=== PATIENT | male | born 1955 | race Caucasian/White ===

== ENCOUNTER 2017-11-01 08:57 | Day surgery (SDC) | payer OTHER ==
[~2017-11-01] VITALS: Ht 175.3 cm; Wt 73.0 kg
[2017-11-01] VITALS (11 sets, daily range): BP systolic 128–180; BP diastolic 66–84
[~2017-11-01 08:57] MED LIST: ASPI325T32 PO; ATOR40TA PO; HYDR25TA4 PO; INSU100I14 SQ; INSU100V5 SQ; NAPR-1071 PO; NF-LAMO200 PO; POLY119P5 PO; QUIN20TA PO; TRAM50TA2 PO
--- OUTSIDE RECORDS SUMMARY | 2017-11-01 09:00 | XMS REPORT | Clinical Summary ---
Author Author [facility] Organization [facility] Address Unknown Phone Unavailable Care Team Providers Care Development Coach Name Role Phone Mihai Grossman MD Unavailable Source Comments Some departments are not documenting in the electronic medical record. If you do not see the information that you expected, contact Release of Information in the Health Information Management department at [phone] for further assistance in locating additional records.[facility] Allergies Not on File Current Medications Not on file Active Problems Not on file Social History Tobacco Use Types Packs/Day Years Used Date Never Assessed Sex Assigned at Date Recorded Not on file Last Filed Vital Signs Not on file Plan of Treatment Health Maintenance Due Date Last Done Comments HEPATITIS C SCREENING 1955 PHYSICAL (COMPREHENSIVE) 1962 EXAM PERTUSSIS VACCINE 1966 HIV SCREENING 1970 TETANUS VACCINE 01/02/1972 COLORECTAL CANCER 2005 SCREENING SHINGLES VACCINE 2015 INFLUENZA VACCINE 02/27/2018 Results Not on filefrom Last 3 Months
--- OUTSIDE RECORDS SUMMARY | 2017-11-01 09:01 | XMS REPORT ---
Author Author NA MORALES Organization [facility] Address [address] [place] [address] Care Team Providers Care Asic Engineer Name Role Phone NA MORALES Unavailable PROBLEMS Type Condition ICD9-CM Code TWO29-WB Code Onset Dates Condition Status SNOMED Code Problem Seizure disorder G40.909 Active 181455184 Problem Depressive disorder, not elsewhere classified F32.9 Active 08589886 Problem History of epilepsy Z86.69 Active 530354737 Problem Memory loss of unknown cause R41.3 Active 00016096 Problem Essential hypertension I10 Active 26920500 Problem Type 1 diabetes mellitus without complications E10.9 Active 798424758 Problem Hypercholesterolemia E78.00 Active 65811251 Problem Acquired hypothyroidism E03.9 Active 240955517 ALLERGIES Unknown Allergies SOCIAL HISTORY No smoking Hx information available PLAN OF CARE VITAL SIGNS MEDICATIONS Medication Instructions Dosage Frequency Start Date End Date Duration Status NovoLog 100 UNIT/ML as directed per pump- 2 vials monthly Jul, Active RESULTS No Results PROCEDURES No Known procedures IMMUNIZATIONS No Known Immunizations
--- OUTSIDE RECORDS SUMMARY | 2017-11-01 09:01 | XMS REPORT ---
Author Author KATHERINE HILTON [facility] eClinicalWorks Address Unknown Phone Unavailable Care Team Providers Care Tinning Machine Set Up Operator Name Role Phone KATHEIRNE HILTON CP Unavailable Allergies No Known Allergies Problems Problem Type Condition Code Onset Dates Condition Status Problem Spasm of muscle 728.85 Active Problem Carpal tunnel syndrome 354.0 Active Problem Corns and callosities 700 Active Problem Pain in soft tissues of limb 729.5 Active Problem Lumbar sprain and strain 847.2 Active Problem Diabetes type 1, controlled E10.9 Active Problem Type I diabetes mellitus 250.01 Active Problem Depressive disorder, not elsewhere classified F32.9 Active Problem Unspecified hereditary and idiopathic peripheral neuropathy 356.9 Active Problem Unspecified musculoskeletal disorders and symptoms referable to neck 723.9 Active Problem Disturbance of skin sensation 782.0 Active Problem Dermatophytosis of nail 110.1 Active Medications No Known Medications Results No Known Results Summary Purpose eClinicalWorks Submission
--- OUTSIDE RECORDS SUMMARY | 2017-11-01 09:01 | XMS REPORT ---
Author Author NA MORALES Organization [facility] Address [address] [place] [address] Care Team Providers Care Corrections Lieutenant Name Role Phone MORALES NA Unavailable PROBLEMS Type Condition ICD9-CM Code [id number] Code Onset Dates Condition Status SNOMED Code Problem Seizure disorder G40.909 Active 581580065 Problem Depressive disorder, not elsewhere classified F32.9 Active 08531153 Problem History of epilepsy Z86.69 Active 155135058 Problem Memory loss of unknown cause R41.3 Active 15873905 Problem Essential hypertension I10 Active 06845441 Problem Type 1 diabetes mellitus without complications E10.9 Active 639162221 Problem Hypercholesterolemia E78.00 Active 05561986 Problem Acquired hypothyroidism E03.9 Active 096645814 ALLERGIES No Known Allergies SOCIAL HISTORY Never Assessed PLAN OF CARE Activity Details Follow Up 3 Months Reason: VITAL SIGNS Height 68 in 2016-08-20 Weight 168.4 lbs 2016-08-20 Temperature 98.5 degrees Fahrenheit 2016-08-20 Heart Rate 72 bpm 2016-08-20 Respiratory Rate 18 2016-08-20 BMI 25.60 kg/m2 2016-08-20 Blood pressure systolic 146 mmHg 2016-08-20 Blood pressure diastolic 70 mmHg 2016-08-20 MEDICATIONS Medication Instructions Dosage Frequency Start Date End Date Duration Status Levothyroxine Sodium 50 MCG Orally Once a day 1 tablet on an empty stomach in the morning 24h Jun, Active Lamotrigine 200 MG TAKE ONE TABLET BY MOUTH ONCE DAILY IN THE MORNING AND ONE AND ONE-HALF TABS IN THE EVENING Active Quinapril HCl 20 MG TAKE ONE TABLET BY MOUTH DAILY Active NovoLog 100 UNIT/ML as directed per pump- 2 vials monthly Jul, Active Hydrochlorothiazide 25 MG TAKE ONE TABLET BY MOUTH DAILY Active Rico Contour Test Test Strips In Vitro 8-10 times per day as directed May, Active Atorvastatin Calcium 40 MG TAKE ONE TABLET BY MOUTH ONCE DAILY Active RESULTS No Results PROCEDURES No Known procedures IMMUNIZATIONS No Known Immunizations MEDICAL (GENERAL) HISTORY Type Description Date Medical History diabetes mellitus Medical History epilepsy Medical History hypertension Medical History hypothyroid Medical History hyperlipidemia Surgical History disc surgery 2014 Surgical History disc surgery low back 1981 Surgical History right foot toe surgery 1982 Surgical History double hernia 2001 Hospitalization History surgeries
--- OUTSIDE RECORDS SUMMARY | 2017-11-01 09:01 | XMS REPORT ---
Author Author NA MORALES Organization [facility] Address [address] [place] [address] Care Team Providers Care Adult Education Professional Name Role Phone NA MORALES Unavailable PROBLEMS Type Condition ICD9-CM Code [id number] Code Onset Dates Condition Status SNOMED Code Problem Seizure disorder G40.909 Active 611798537 Problem Depressive disorder, not elsewhere classified F32.9 Active 57103949 Problem History of epilepsy Z86.69 Active 438910336 Problem Memory loss of unknown cause R41.3 Active 10699494 Problem Essential hypertension I10 Active 67048051 Problem Type 1 diabetes mellitus without complications E10.9 Active 483949933 Problem Hypercholesterolemia E78.00 Active 85253249 Problem Acquired hypothyroidism E03.9 Active 152955028 ALLERGIES No Information SOCIAL HISTORY Never Assessed PLAN OF CARE VITAL SIGNS MEDICATIONS Medication Instructions Dosage Frequency Start Date End Date Duration Status Rico Contour Test - In Vitro 8-10 times per day as directed May, Active RESULTS No Results PROCEDURES No Known procedures IMMUNIZATIONS No Known Immunizations MEDICAL (GENERAL) HISTORY Type Description Date Medical History diabetes mellitus Medical History epilepsy Medical History hypertension Medical History hypothyroid Medical History hyperlipidemia Surgical History disc surgery 2014 Surgical History disc surgery low back 1996, 1981 Surgical History right foot toe surgery 1982 Surgical History double hernia 2001 Hospitalization History surgeries
--- OUTSIDE RECORDS SUMMARY | 2017-11-01 09:01 | XMS REPORT ---
Author Author KATHERINE HILTON [facility] eClinicalWorks Address Unknown Phone Unavailable Care Team Providers Care Intelligence Analyst Name Role Phone KATHERINE HILTON CP Unavailable Allergies No Known Allergies Problems Problem Type Condition Code Onset Dates Condition Status Problem Pain in soft tissues of limb 729.5 Active Problem Spasm of muscle 728.85 Active Problem Lumbar sprain and strain 847.2 Active Problem Disturbance of skin sensation 782.0 Active Problem Dermatophytosis of nail 110.1 Active Problem Type I diabetes mellitus 250.01 Active Problem Carpal tunnel syndrome 354.0 Active Problem Corns and callosities 700 Active Problem Unspecified hereditary and idiopathic peripheral neuropathy 356.9 Active Problem Unspecified musculoskeletal disorders and symptoms referable to neck 723.9 Active Medications No Known Medications Results No Known Results Summary Purpose eClinicalWorks Submission
--- OUTSIDE RECORDS SUMMARY | 2017-11-01 09:01 | XMS REPORT ---
Author Author KATHERINE HILTON [facility] eClinicalWorks Address Unknown Phone Unavailable Care Team Providers Care Customer Care Associate Name Role Phone KATHERINE HILTON CP Unavailable Allergies, Adverse Reactions, Alerts Substance Reaction Event Type N.K.D.A. Info Not Available Non Drug Allergy Problems Problem Type Condition Code Onset Dates Condition Status Problem Spasm of muscle 728.85 Active Problem Carpal tunnel syndrome 354.0 Active Problem Corns and callosities 700 Active Problem Diabetes type 1, controlled E10.9 Active Problem Type I diabetes mellitus 250.01 Active Problem Depressive disorder, not elsewhere classified F32.9 Active Problem Unspecified hereditary and idiopathic peripheral neuropathy 356.9 Active Problem Unspecified musculoskeletal disorders and symptoms referable to neck 723.9 Active Problem Disturbance of skin sensation 782.0 Active Problem Dermatophytosis of nail 110.1 Active Assessment Back pain M54.9 Active Problem Pain in soft tissues of limb 729.5 Active Problem Lumbar sprain and strain 847.2 Active Medications Medication Code System Code Instructions Start Date End Date Status Dosage Zoloft [facility] [address]-62 50 MG Orally Once a day Mar 18, 2015 1 tablet Lamotrigine [facility] 65754077052 200 MG TAKE ONE TABLET BY MOUTH IN THE MORNING AND ONE AND ONE-HALF TABLETS IN THE EVENING Levitra [facility] [address]-58 20 mg August 22, 2014 1 tablet by Oral route 1 time per day PRN NovoLog Flexpen [facility] [address]-44 100 UNIT/ML Subcutaneous 3 times a day December 05, 2013 inject 5 Units by Subcutaneous route before meals 3 times per day Lipitor [facility] [address]-95 40 mg 1 TAB orally once a day August 13, 2014 1 tablet by Oral route 1 time per day Levemir Flexpen [facility] 85184918176 100 unit/mL 2 times a day 20-35 Unit by Subcutaneous route 2 times per day 20 units Q am and 35 units Q pm Procedures Procedure Coding System Code Date Office Visit, Est Pt., Level 2 CPT-4 76476 Jun 26, 2015 Vital Signs Date/Time: Jun 26, 2015 Temperature 98.0 F Weight 164 lbs Height 68 in BMI 24.93 Index Blood Pressure Diastolic 82 mmHg Blood Pressure Systolic 156 mmHg Cardiac Monitoring Heart Rate 80 bpm Results No Known Results Summary Purpose eClinicalWorks Submission
--- OUTSIDE RECORDS SUMMARY | 2017-11-01 09:01 | XMS REPORT ---
Author Author KATHERINE HILTON [facility] eClinicalWorks Address Unknown Phone Unavailable Care Team Providers Care General Maintenance Mechanic Name Role Phone KATHERINE HILTON CP Unavailable [...]
--- OUTSIDE RECORDS SUMMARY | 2017-11-01 09:01 | XMS REPORT ---
Author Author ISMAEL WILHELM Organization [employer] Address Unknown Phone Unavailable Care Team Providers Care Ornithology Teacher Name Role Phone ISMAEL WILHELM CP Unavailable Allergies No Known Allergies Problems [...] Problem Dermatophytosis of nail 110.1 Active Assessment Depressive disorder, not elsewhere classified F32.9 Active Problem Pain in soft tissues of limb 729.5 Active Problem Lumbar sprain and strain 847.2 Active Medications No Known Medications Procedures Procedure Coding System Code Date Psych diagnostic evaluation, established patient CPT-4 35392 Mar 18, 2015 Results No Known Results Summary Purpose eClinicalWorks Submission
--- OUTSIDE RECORDS SUMMARY | 2017-11-01 09:01 | XMS REPORT ---
Author Author NA MORALES Organization [facility] Address [address] [place] [address] Care Team Providers Care Doctor Of Naturopathic Medicine Name Role Phone NA MORALES Unavailable PROBLEMS Type Condition ICD9-CM Code [id number] Code Onset Dates Condition Status SNOMED Code Problem Seizure disorder G40.909 Active 182642012 Problem Depressive disorder, not elsewhere classified F32.9 Active 91600818 Problem History of epilepsy Z86.69 Active 722120553 Problem Memory loss of unknown cause R41.3 Active 85016726 Problem Essential hypertension I10 Active 48506802 Problem Type 1 diabetes mellitus without complications E10.9 Active 892850603 Problem Hypercholesterolemia E78.00 Active 87547895 Problem Acquired hypothyroidism E03.9 Active 964956077 ALLERGIES Unknown Allergies SOCIAL HISTORY No smoking Hx information available PLAN OF CARE VITAL SIGNS MEDICATIONS Medication Instructions Dosage Frequency Start Date End Date Duration Status NovoLog 100 UNIT/ML as directed per pump- 2 vials monthly Jul, Active RESULTS No Results PROCEDURES No Known procedures IMMUNIZATIONS No Known Immunizations
--- OUTSIDE RECORDS SUMMARY | 2017-11-01 09:01 | XMS REPORT ---
Author Author NA MORALES Organization [facility] Address [address] [place] [address] Care Team Providers Care Tube Buffer Name Role Phone NA MORALES Unavailable PROBLEMS Type Condition ICD9-CM Code HEX42-AN Code Onset Dates Condition Status SNOMED Code Problem Seizure disorder G40.909 Active 907834532 Problem Depressive disorder, not elsewhere classified F32.9 Active 30191621 Problem History of epilepsy Z86.69 Active 052041909 Problem Memory loss of unknown cause R41.3 Active 93165767 Problem Essential hypertension I10 Active 21532939 Problem Type 1 diabetes mellitus without complications E10.9 Active 563248114 Problem Hypercholesterolemia E78.00 Active 69205202 Problem Acquired hypothyroidism E03.9 Active 293226299 ALLERGIES No Information SOCIAL HISTORY Never Assessed PLAN OF CARE VITAL SIGNS MEDICATIONS Unknown Medications RESULTS No Results PROCEDURES No Known procedures [...]
--- OUTSIDE RECORDS SUMMARY | 2017-11-01 09:01 | XMS REPORT ---
Author Author KATHERINE HILTON [facility] eClinicalWorks Address Unknown Phone Unavailable Care Team Providers Care Application Support Name Role Phone KATHERINE HILTON Unavailable Allergies No Known Allergies Problems Problem Type Condition ICD-9 Code Onset Dates Condition Status Problem Pain [...] symptoms referable to neck 723.9 Active Medications Medication Code System Code Instructions Start Date End Date Status Dosage Levemir Flexpen [facility] [address]-60 100 UNIT/ML Decrease the PM dose by 1 units til FBS > 80. AM and PM dosing December 05, 2013 20AM and 30 PM NovoLog Flexpen [facility] [address]-52 100 unit/mL December 05, 2013 inject 5 Units by Subcutaneous route before meals 3 times per day Results No Known Results Summary Purpose eClinicalWorks Submission
--- OUTSIDE RECORDS SUMMARY | 2017-11-01 09:01 | XMS REPORT ---
Author Author KATHERINE HILTON [facility] eClinicalWorks Address Unknown Phone Unavailable Care Team Providers Care Access Liaison Name Role Phone KATHERINE HILTON CP Unavailable [...] Problem Dermatophytosis of nail 110.1 Active Medications Medication Code System Code Instructions Start Date End Date Status Dosage NovoLog [facility] [address]-23 100 UNIT/ML Subcutaneous August 12, 2015 as directed per pump- 2 vials monthly Results No Known Results Summary Purpose eClinicalWorks Submission
--- OUTSIDE RECORDS SUMMARY | 2017-11-01 09:01 | XMS REPORT ---
Author Author NA MORALES Organization [facility] Address [address] [place] [address] Care Team Providers Care Boilerhouse Mechanic Name Role Phone EMPERATRIZ MORALESNETTE Unavailable PROBLEMS Type Condition ICD9-CM Code RTS23-RO Code Onset Dates Condition Status SNOMED Code Problem Seizure disorder G40.909 Active 460438918 Problem Depressive disorder, not elsewhere classified F32.9 Active 68036097 Problem History of epilepsy Z86.69 Active 033559926 Problem Memory loss of unknown cause R41.3 Active 81890578 Problem Essential hypertension I10 Active 16717905 Problem Type 1 diabetes mellitus without complications E10.9 Active 254629472 Problem Hypercholesterolemia E78.00 Active 13406016 Problem Acquired hypothyroidism E03.9 Active 295116406 ALLERGIES Substance Reaction Event Type Date Status N.K.D.A. Unknown Non Drug Allergy May, Unknown SOCIAL HISTORY No smoking Hx information available PLAN OF CARE Activity Details Follow Up 3 Months, prn Reason: VITAL SIGNS Height 68 in 2016-06-21 Weight 168.8 lbs 2016-06-21 Temperature 97.9 degrees Fahrenheit 2016-06-21 Heart Rate 70 bpm 2016-06-21 Respiratory Rate 18 2016-06-21 BMI 25.66 kg/m2 2016-06-21 Blood pressure systolic 162 mmHg 2016-06-21 Blood pressure diastolic 74 mmHg 2016-06-21 MEDICATIONS Medication Instructions Dosage Frequency Start Date End Date Duration Status Hydrochlorothiazide 25 MG TAKE ONE TABLET BY MOUTH DAILY 30 Active NovoLog 100 UNIT/ML as directed per pump- 2 vials monthly Jul, Active Atorvastatin Calcium 40 MG TAKE ONE TABLET BY MOUTH ONCE DAILY 30 Active Quinapril HCl 20 MG TAKE ONE TABLET BY MOUTH DAILY 30 Active Lamotrigine 200 MG TAKE ONE TABLET BY MOUTH IN THE MORNING AND ONE AND ONE- HALF TABLETS IN THE EVENING 30 Active Test strips Test Strips One Touch Ultra Link 8-10 test blood sugar Jun Active RESULTS Name Result Date Reference Range A1C (IN HOUSE) 2016-06-21 A1C IN HOUSE 7.9 4.3 - 5.6 % Previous A1c 8.4 Lot [id number] Exp date 03/2018 MICROALBUMIN, URINE (IN HOUSE) 2016-06-21 MICROALBUMIN HIGH ABNORMAL Lot # [id number] Exp date 05/2017 Clarity clear Color yellow ALB 80 CRE 50 A:C (IN HOUSE) >300 Control + Control Lot # Exp date MICROALBUMIN/CREATININE RATIO, URINE 2016-06-21 Creatinine, Urine 31.4 Not Estab. Microalbumin, Urine 66.1 Not Estab. Microalb/Creat Ratio 210.5 0.0-30.0 PROCEDURES Procedure Date Ordered Related Diagnosis Body Site GLYCATED HEMOGLOBIN TEST Jun 21, 2016 MICROALBUMIN, SEMIQUANT Jun 21, 2016 MICROALBUMIN, QUANTITATIVE Jun 21, 2016 ASSAY OF URINE CREATININE Jun 21, 2016 Office Visit, Est Pt., Level 4 Jun 21, 2016 IMMUNIZATIONS No Known Immunizations
--- OUTSIDE RECORDS SUMMARY | 2017-11-01 09:01 | XMS REPORT ---
Author Author NA MORALES Organization [facility] Address [address] [place] [address] Care Team Providers Care Party Plan Sales Consultant Name Role Phone NA MORALES Unavailable PROBLEMS Type Condition ICD9-CM Code MUX22-IW Code Onset Dates Condition Status SNOMED Code Problem Seizure disorder G40.909 Active 015430438 Problem Depressive disorder, not elsewhere classified F32.9 Active 37359165 Problem History of epilepsy Z86.69 Active 205076608 Problem Memory loss of unknown cause R41.3 Active 57461871 Problem Essential hypertension I10 Active 41522881 Problem Type 1 diabetes mellitus without complications E10.9 Active 110270873 Problem Hypercholesterolemia E78.00 Active 36558919 Problem Acquired hypothyroidism E03.9 Active 909291441 ALLERGIES No Information SOCIAL HISTORY Never Assessed PLAN OF CARE VITAL SIGNS MEDICATIONS Medication Instructions Dosage Frequency Start Date End Date Duration Status Levothyroxine Sodium 50 MCG Orally Once a day 1 tablet on an empty stomach in the morning 24h Jun, Active RESULTS No Results PROCEDURES No Known procedures IMMUNIZATIONS No Known Immunizations MEDICAL (GENERAL) HISTORY Type Description Date Medical History diabetes mellitus Medical History epilepsy Medical History hypertension Medical History hypothyroid Medical History hyperlipidemia Surgical History disc surgery 2014 Surgical History disc surgery low back 1996, 1981 Surgical History right foot toe surgery 1982 Surgical History double hernia 2002 Hospitalization History surgeries
--- OUTSIDE RECORDS SUMMARY | 2017-11-01 09:02 | XMS REPORT ---
Author Author KATHERINE HILTON [facility] eClinicalWorks Address Unknown Phone Unavailable Care Team Providers Care Behavioral Health Case Manager Name Role Phone KATHERINE HILTON CP Unavailable [...] Date End Date Status Dosage Levemir Flexpen NDC 0 100 unit/mL December 05, 2013 20-35 Unit by Subcutaneous route 2 times per day 20 units Q am and 35 units Q pm Results No Known Results Summary Purpose eClinicalWorks Submission
--- OUTSIDE RECORDS SUMMARY | 2017-11-01 09:02 | XMS REPORT ---
Author Author KATHERINE HILTON [facility] eClinicalWorks Address Unknown Phone Unavailable Care Team Providers Care Machine Marker Name Role Phone KATHERINE HILTON CP Unavailable [...]
--- OUTSIDE RECORDS SUMMARY | 2017-11-01 09:02 | XMS REPORT ---
Author Author KATHERINE HILTON [facility] eClinicalWorks Address Unknown Phone Unavailable Care Team Providers Care Enamel Burner Name Role Phone KATHERINE HILTON CP Unavailable [...] Problem Dermatophytosis of nail 110.1 Active Assessment Nicotine dependence F17.200 Active Problem Pain in soft tissues of limb 729.5 Active Problem Lumbar sprain and strain 847.2 Active Medications Medication Code System Code Instructions Start Date End Date Status Dosage Chantix [facility] [address]-02 1 MG Orally, 1/2 tab daily for 3 days, 1/2 tab 2 times a day for 3 days, 1 tab 2 times a day there after Twice a day September 18, 2015 1 tablet Results No Known Results Summary Purpose eClinicalWorks Submission
--- OUTSIDE RECORDS SUMMARY | 2017-11-01 09:02 | XMS REPORT ---
Author Author KATHERINE HILTON [facility] eClinicalWorks Address Unknown Phone Unavailable Care Team Providers Care Employment Director Name Role Phone KATHERINE HILTON CP Unavailable [...] Dosage Levemir Flexpen NDC 0 100 unit/mL 2 times a day December 05, 2013 20- 35 Unit by Subcutaneous route 2 times per day 20 units Q am and 35 units Q pm Results No Known Results Summary Purpose eClinicalWorks Submission
--- OUTSIDE RECORDS SUMMARY | 2017-11-01 09:02 | XMS REPORT ---
Author Author KATHERINE HILTON [facility] eClinicalWorks Address Unknown Phone Unavailable Care Team Providers Care Laundry Agent Name Role Phone KATHERINE HILTON CP Unavailable [...] Problem Dermatophytosis of nail 110.1 Active Assessment Lumbar disc disease M51.9 Active Problem Pain in soft tissues of limb 729.5 Active Problem Lumbar sprain and strain 847.2 Active Medications Medication Code System Code Instructions Start Date End Date Status Dosage Oxycodone-Acetaminophen [facility] [address]-18 10-325 MG Orally every 4 hrs 1 tablet as needed Results No Known Results Summary Purpose eClinicalWorks Submission
--- OUTSIDE RECORDS SUMMARY | 2017-11-01 09:02 | XMS REPORT ---
Author Author KATHERINE HILTON [facility] [place] eClinicalWorks Address Unknown Phone Unavailable Care Team Providers Care Welding Machine Operator Helper Gas Name Role Phone KATHERINE HILTON CP Unavailable [...] Problem Dermatophytosis of nail 110.1 Active Assessment Depression F32.9 Active Assessment Diabetes type 1, controlled E10.9 Active Problem Pain in soft tissues of limb 729.5 Active Problem Lumbar sprain and strain 847.2 Active Medications Medication Code System Code Instructions Start Date End Date Status Dosage Lamictal [facility] [address]-13 200 mg Jul 12, 2014 1-1.5 Tablet by Oral route 2 times per day 1 tablet in am, & 1.5 in the evening Levemir Flexpen [facility] [address]-97 100 UNIT/ML Decrease the PM dose by 1 units til FBS > 80. AM and PM dosing December 05, 2013 20AM and 25 PM Naproxen [facility] [address]-51 500 mg August 13, 2014 take 1 tablet by Oral route 2 times per day with food p c Levitra [facility] [address]-75 20 mg August 22, 2014 1 tablet by Oral route 1 time per day PRN Zoloft [facility] [address]-44 50 MG Orally Once a day Mar 18, 2015 1 tablet NovoLog Flexpen [facility] [address]-80 100 UNIT/ML Subcutaneous 3 times a day December 05, 2013 inject 5 Units by Subcutaneous route before meals 3 times per day Lipitor [facility] [address]-23 40 mg 1 TAB orally once a day August 13, 2014 1 tablet by Oral route 1 time per day Procedures Procedure Coding System Code Date Office Visit, [place] Pt., Level 3 CPT-4 09245 Mar 18, 2015 Vital Signs Date/Time: Mar 18, 2015 Temperature 98.3 F Weight 175.4 lbs Height 68 in BMI 26.67 Index Blood Pressure Diastolic 70 mmHg Blood Pressure Systolic 132 mmHg Cardiac Monitoring Heart Rate 72 bpm Results No Known Results Summary Purpose eClinicalWorks Submission
--- OUTSIDE RECORDS SUMMARY | 2017-11-01 09:02 | XMS REPORT ---
Author Author NA MORALES Organization [facility] Address [address] [place] [address] Care Team Providers Care Tannery Gummer Name Role Phone NA MORALES Unavailable PROBLEMS Type Condition ICD9-CM Code XKE29-ST Code Onset Dates Condition Status SNOMED Code Problem Seizure disorder G40.909 Active 310517342 Problem Depressive disorder, not elsewhere classified F32.9 Active 74913295 Problem History of epilepsy Z86.69 Active 127073735 Problem Memory loss of unknown cause R41.3 Active 38627751 Problem Essential hypertension I10 Active 75244205 Problem Type 1 diabetes mellitus without complications E10.9 Active 281734460 Problem Hypercholesterolemia E78.00 Active 61998103 Problem Acquired hypothyroidism E03.9 Active 771429764 ALLERGIES No Information SOCIAL HISTORY Never Assessed PLAN OF CARE VITAL SIGNS MEDICATIONS Medication Instructions Dosage Frequency Start Date End Date Duration Status Keppra 250 MG Orally 2 times a day orally one tab 12h Active RESULTS No Results PROCEDURES No Known [...]
--- OUTSIDE RECORDS SUMMARY | 2017-11-01 09:02 | XMS REPORT ---
Author Author NA MORALES Organization [facility] Address [address] [place] [address] Care Team Providers Care Casing Inspector Name Role Phone NA MORALES Unavailable PROBLEMS Type Condition ICD9-CM Code LSO86-CD Code Onset Dates Condition Status SNOMED Code Problem Seizure disorder G40.909 Active 206615525 Problem Depressive disorder, not elsewhere classified F32.9 Active 86418413 Problem History of epilepsy Z86.69 Active 846871522 Problem Memory loss of unknown cause R41.3 Active 26414891 Problem Essential hypertension I10 Active 56115951 Problem Type 1 diabetes mellitus without complications E10.9 Active 996874902 Problem Hypercholesterolemia E78.00 Active 87363923 Problem Acquired hypothyroidism E03.9 Active 365169446 ALLERGIES No Information SOCIAL HISTORY Never Assessed [...]
--- OUTSIDE RECORDS SUMMARY | 2017-11-01 09:02 | XMS REPORT ---
Author Author NA MORALES Organization [facility] Address [address] [place] [address] Care Team Providers Care Air Drier Name Role Phone NA MORALES Unavailable PROBLEMS Type Condition ICD9-CM Code WFA04-TU Code Onset Dates Condition Status SNOMED Code Problem Seizure disorder G40.909 Active 714294206 Problem Depressive disorder, not elsewhere classified F32.9 Active 70028634 Problem History of epilepsy Z86.69 Active 447311045 Problem Memory loss of unknown cause R41.3 Active 27890115 Problem Essential hypertension I10 Active 59436232 Problem Type 1 diabetes mellitus without complications E10.9 Active 996582079 Problem Hypercholesterolemia E78.00 Active 44517823 Problem Acquired hypothyroidism E03.9 Active 139291127 ALLERGIES No Information SOCIAL HISTORY Never Assessed [...]
--- OUTSIDE RECORDS SUMMARY | 2017-11-01 09:02 | XMS REPORT ---
Author JANETH Walsh [facility] eClinicalWorks Address Unknown Phone Unavailable Care Team Providers Care Finish Photographer Name Role Phone JANETH CUETO CP Unavailable Allergies, Adverse Reactions, Alerts Substance [...] Problem Dermatophytosis of nail 110.1 Active Assessment Lipoma of back D17.1 Active Assessment Sebaceous cyst L72.3 Active Problem Pain in soft tissues of limb 729.5 Active Problem Lumbar sprain and strain 847.2 Active Medications Medication Code System Code Instructions Start Date End Date Status Dosage Test strips NDC 0 Test Strips One Touch Ultra Link 8-10 Jul 21, 2015 test blood sugar Quinapril HCl [facility] 18151011935 20 MG TAKE ONE TABLET BY MOUTH DAILY NovoLog [facility] [address]-20 100 UNIT/ML Subcutaneous August 12, 2015 as directed per pump- 2 vials monthly Atorvastatin Calcium [facility] 59628492961 40 MG TAKE ONE TABLET BY MOUTH ONCE DAILY Hydrochlorothiazide ND 77496456230 25 MG TAKE ONE TABLET BY MOUTH DAILY Zoloft [facility] [address]-45 50 MG Orally Once a day Mar 18, 2015 1 tablet Lamotrigine [facility] 18006813189 200 MG TAKE ONE TABLET BY MOUTH IN THE MORNING AND ONE AND ONE-HALF TABLETS IN THE EVENING Procedures Procedure Coding System Code Date Office Visit, Est Pt., Level 2 CPT-4 26256 December 23, 2015 EXC TR-EXT B9 DAVID 1.1-2 CM CPT-4 81814 December 23, 2015 Vital Signs Date/Time: December 23, 2015 Cardiac Monitoring Heart Rate 88 bpm Weight 167 lbs Height 68 in BMI 25.39 Index Blood Pressure Diastolic 72 mmHg Blood Pressure Systolic 150 mmHg Results No Known Results Summary Purpose eClinicalWorks Submission
--- OUTSIDE RECORDS SUMMARY | 2017-11-01 09:02 | XMS REPORT ---
Author Author PAYTON PEDRO Organization [facility] Address [address] [place] [address] Care Team Providers Care Gas Operator Name Role Phone PAYTON PEDRO Unavailable PROBLEMS Type Condition ICD9-CM Code ZMZ53-GS Code Onset Dates Condition Status SNOMED Code Problem Seizure disorder G40.909 Active 645149236 Problem Depressive disorder, not elsewhere classified F32.9 Active 99948706 Problem Memory loss of unknown cause R41.3 Active 69563485 Problem History of epilepsy Z86.69 Active 334947363 Problem Essential hypertension I10 Active 25189552 Problem Type 1 diabetes mellitus without complications E10.9 Active 508543899 Problem Acquired hypothyroidism E03.9 Active 417829179 Problem Hypercholesterolemia E78.00 Active 63701773 ALLERGIES Unknown Allergies SOCIAL HISTORY No smoking Hx information available PLAN OF CARE VITAL SIGNS MEDICATIONS Medication Instructions Dosage Frequency Start Date End Date Duration Status NovoLog 100 UNIT/ML as directed per pump- 2 vials monthly Jul, Active RESULTS No Results PROCEDURES No Known procedures IMMUNIZATIONS No Known Immunizations
--- OUTSIDE RECORDS SUMMARY | 2017-11-01 09:02 | XMS REPORT ---
Author Author GAETANO GRIMM [facility] eClinicalWorks Address Unknown Phone Unavailable Care Team Providers Care Early Childhood Services Coordinator Name Role Phone GAETANO GRIMM CP Unavailable Allergies, Adverse Reactions, Alerts Substance [...] Instructions Start Date End Date Status Dosage Lipitor [facility] [address]-99 40 mg 1 TAB orally once a day August 13, 2014 1 tablet by Oral route 1 time per day Levitra [facility] [address]-70 20 mg August 22, 2014 1 tablet by Oral route 1 time per day PRN Quinapril HCl [facility] 15385904720 20 MG TAKE ONE TABLET BY MOUTH DAILY Cyclobenzaprine HCl [facility] 98031081199 10 MG TAKE ONE TABLET BY MOUTH THREE TIMES DAILY NEEDED Hydrochlorothiazide [facility] 99825985967 25 MG TAKE ONE TABLET BY MOUTH DAILY Oxycodone-Acetaminophen [facility] [address]-81 10-325 MG Orally every 4 hrs 1 tablet as needed Naproxen [facility] 99466763354 500 MG TAKE ONE TABLET BY MOUTH TWICE DAILY WITH FOOD Atorvastatin Calcium [facility] 56347831527 40 MG TAKE ONE TABLET BY MOUTH ONCE DAILY Chantix [facility] [address]-40 1 MG Orally, 1/2 tab daily for 3 days, 1/2 tab 2 times a day for 3 days, 1 tab 2 times a day there after Twice a day September 18, [address] [facility] [address]-79 100 UNIT/ML Subcutaneous August 12, 2015 as directed per pump- 2 vials monthly Zoloft [facility] [address]-12 50 MG Orally Once a day Mar 18, 2015 1 tablet Test strips [facility] 0 Test Strips One Touch Ultra Link 8-Jul 21, 2015 test blood sugar cyclobenzaprine [facility] [address]-79 10 mg August 13, 2014 1 tablet by Oral route 3 times per day PRN [place] [facility] [address]-38 5-325 MG Orally every 6 hrs October 21, 2015 1 tablet as needed Morphine Sulfate [facility] [address]-18 30 MG Orally every 4 hrs May 16, 2015 1 tablet as needed Baclofen [facility] [address]-96 10 MG Orally @ HS May 16, 2015 1-[address] [facility] 14817755414 200 MG TAKE ONE TABLET BY MOUTH IN THE MORNING AND ONE AND ONE-HALF TABLETS IN THE EVENING Procedures Procedure Coding System Code Date Office Visit, Est Pt., Level 3 CPT-4 23413 December 22, 2015 Vital Signs Date/Time: December 22, 2015 Cardiac Monitoring Heart Rate 85 bpm Weight 166.0 lbs Height 68 in Blood Pressure Diastolic 66 mmHg Blood Pressure Systolic 144 mmHg Results No Known Results Summary Purpose eClinicalWorks Submission
--- OUTSIDE RECORDS SUMMARY | 2017-11-01 09:02 | XMS REPORT ---
Author Author MARIUSZ MENDOSA eClinicalWorks Address Unknown Phone Unavailable Care Team Providers Care Marble Installer Supervisor Name Role Phone MARIUSZ MENDOSA CP Unavailable Allergies, Adverse Reactions, Alerts Substance [...] Dermatophytosis of nail 110.1 Active Assessment Lumbar sprain and strain 847.2 Active Assessment Low back pain M54.5 Active Assessment Kidney stone N20.0 Active Problem Pain in soft tissues of limb 729.5 Active Assessment Constipation K59.00 Active Problem Lumbar sprain and strain 847.2 Active Medications Medication Code System Code Instructions Start Date End Date Status Dosage NovoLog Flexpen [facility] [address]-39 100 UNIT/ML Subcutaneous 3 times a day December 05, 2013 inject 5 Units by Subcutaneous route before meals 3 times per day [address] [facility] [address]-38 40 mg 1 TAB orally once a day August 13, 2014 1 tablet by Oral route 1 time per day Naproxen [facility] [address]-16 500 mg August 13, 2014 take 1 tablet by Oral route 2 times per day with food p c Levemir Flexpen [place] 0 100 UNIT/ML Decrease the PM dose by 1 units til FBS > 80. AM and PM dosing December 05, 2013 20AM and [address] [facility] [address]-58 50 MG Orally Once a day Mar 18, [address] [facility] [address]-35 20 mg August 22, 2014 1 tablet by Oral route 1 time per day PRN Oxycodone HCl [facility] [address]-[address] [facility] 32507444740 200 MG TAKE ONE TABLET BY MOUTH IN THE MORNING AND ONE AND ONE-HALF TABLETS IN THE EVENING Procedures Procedure Coding System Code Date X-RAY EXAM OF ABDOMEN CPT-4 68061 May 09, 2015 Office Visit, Est Pt., Level 3 CPT-4 24592 May 09, 2015 URINALYSIS, AUTO, W/O SCOPE CPT-4 44157 May 09, 2015 Vital Signs Date/Time: May 09, 2015 Temperature 97.5 F Weight 171.4 lbs Height 68 in BMI 26.06 Index Blood Pressure Diastolic 78 mmHg Blood Pressure Systolic 176 mmHg Cardiac Monitoring Heart Rate 80 bpm Results Name Result Date Reference Range Unit Abnormality Flag UA W/CULTURE IF INDICATED (IN HOUSE) ----NAM neg [id number] ----NIT neg [id number] ----SG 1.015 [id number] ----KET neg [id number] ----ROGELIO neg [id number] ----GLU +++ [id number] ----Odor no [id number] ----pH 6.5 20150509 ----BLO neg [id number] ----URO 0.2 [id number] ----Protein neg [id number] ----Lot # [id number] ----Exp date [id number] ----Clarity clear [id number] ----Color yellow [id number] Xray : MAXIME (IN HOUSE) Summary Purpose eClinicalWorks Submission
--- OUTSIDE RECORDS SUMMARY | 2017-11-01 09:03 | XMS REPORT ---
Author Author NA MORALES Organization [facility] Address [address] [place] [address] Care Team Providers Care Building Maintenance Mechanic Name Role Phone EMPERATRIZ MORALESNETTE Unavailable PROBLEMS Type Condition ICD9-CM Code VJS23-LZ Code Onset Dates Condition Status SNOMED Code Problem Seizure disorder G40.909 Active 383247912 Problem Depressive disorder, not elsewhere classified F32.9 Active 65903734 Problem History of epilepsy Z86.69 Active 002942478 Problem Memory loss of unknown cause R41.3 Active 54155293 Problem Essential hypertension I10 Active 59325321 Problem Type 1 diabetes mellitus without complications E10.9 Active 858876624 Problem Hypercholesterolemia E78.00 Active 22580522 Problem Acquired hypothyroidism E03.9 Active 142566332 ALLERGIES No Information SOCIAL HISTORY Never Assessed PLAN OF CARE VITAL SIGNS MEDICATIONS Unknown Medications RESULTS Name Result Date Reference Range TSH 2016-07-26 TSH 4.870 0.450-4.500 CBC 2016-07-26 WBC 13.1 3.4-10.8 RBC 4.51 4.14-5.80 Hemoglobin 14.4 12.6-17.7 Hematocrit 43.8 37.5-51.0 MCV 97 79-97 MCH 31.9 26.6-33.0 MCHC 32.9 31.5-35.7 RDW 14.3 12.3-15.4 Platelets 350 150-379 Neutrophils 79 Lymphs 15 Monocytes 6 Eos 0 Basos 0 Neutrophils (Absolute) 10.3 1.4-7.0 Lymphs (Absolute) 1.9 0.7-3.1 Monocytes(Absolute) 0.8 0.1-0.9 Eos (Absolute) 0.0 0.0-0.4 Baso (Absolute) 0.0 0.0-0.2 Immature Granulocytes 0 Immature Grans (Abs) 0.0 0.0-0.1 LIPID PANEL 2016-07-26 Cholesterol, Total 225 100-199 Triglycerides 57 0-149 HDL Cholesterol 99 >39 VLDL Cholesterol Emmett 11 5-40 LDL Cholesterol Calc 115 0-99 Comment: CMP 2016-07-26 Glucose, Serum 163 65-99 BUN 18 -27 Creatinine, Serum 1.02 0.76-1.27 eGFR If NonAfricn Am 79 >59 eGFR If Africn Am 91 >59 BUN/Creatinine Ratio 18 10-22 Sodium, Serum 137 134-144 Potassium, Serum 4.4 3.5-5.2 Chloride, Serum 96 96-106 Carbon Dioxide, Total 23 18-29 Calcium, Serum 9.3 8.6-10.2 Protein, Total, Serum 7.2 6.0-8.5 Albumin, Serum 4.7 3.6-4.8 Globulin, Total 2.5 1.5-4.5 A/G Ratio 1.9 1.1-2.5 Bilirubin, Total 0.3 0.0-1.2 Alkaline Phosphatase, S 77 39-117 AST (SGOT) 12 0-40 ALT (SGPT) 15 0-44 PROCEDURES Procedure Date Ordered Result Body Site ASSAY THYROID STIM HORMONE Jul 26, 2016 COMPLETE CBC W/AUTO DIFF WBC Jul 26, 2016 COMPREHEN METABOLIC PANEL Jul 26, 2016 LIPID PANEL Jul 26, 2016 VENIPUNCT, ROUTINE* Jul 26, 2016 IMMUNIZATIONS No Known Immunizations MEDICAL (GENERAL) HISTORY Type Description Date Medical History diabetes mellitus Medical History epilepsy Medical History hypertension Medical History hypothyroid Medical History hyperlipidemia Surgical History disc surgery 2014 Surgical History disc surgery low back 1996, 1981 Surgical History right foot toe surgery 2006, 1982 Surgical History double hernia 2001 Hospitalization History surgeries
--- OUTSIDE RECORDS SUMMARY | 2017-11-01 09:03 | XMS REPORT ---
Author Author KATHERINE HILTON [facility] [place] eClinicalWorks Address Unknown Phone Unavailable Care Team Providers Care Reimbursement Representative Name Role Phone KATHERINE HILTON CP Unavailable [...]
--- OUTSIDE RECORDS SUMMARY | 2017-11-01 09:03 | XMS REPORT ---
Author Author KATHERINE HILTON [facility] eClinicalWorks Address Unknown Phone Unavailable Care Team Providers Care Coal Shoveler Name Role Phone KATHERINE HILTON CP Unavailable [...]
--- OUTSIDE RECORDS SUMMARY | 2017-11-01 09:03 | XMS REPORT ---
Author Author KATHERINE HILTON [facility] eClinicalWorks Address Unknown Phone Unavailable Care Team Providers Care Label Stamper Name Role Phone KATHERINE HILTON CP Unavailable [...]
--- OUTSIDE RECORDS SUMMARY | 2017-11-01 09:03 | XMS REPORT ---
Author Author NA Whitley Organization [facility] Address [address] [place] [address] Care Team Providers Care Data Transcriber Name Role Phone NA Whitley Unavailable PROBLEMS Type Condition ICD9-CM Code [id number] Code Onset Dates Condition Status SNOMED Code Problem Seizure disorder G40.909 Active 933601428 Problem Essential hypertension I10 Active 85185493 Problem Type 1 diabetes mellitus without complications E10.9 Active 084477002 Problem Depressive disorder, not elsewhere classified F32.9 Active 99375316 Problem Type 1 diabetes mellitus with diabetic polyneuropathy E10.42 Active 63556840 Problem Mild episode of recurrent major depressive disorder F33.0 Active 876112546 Problem Hypercholesterolemia E78.00 Active 55453807 Problem Acquired hypothyroidism E03.9 Active 931280837 Problem Memory loss of unknown cause R41.3 Active 54620945 Problem History of epilepsy Z86.69 Active 947398068 ALLERGIES No Information ENCOUNTERS Encounter Location Date Diagnosis [facility] [address] [address] September, [facility] [address] [address]- [address] Aug, Type 1 diabetes mellitus with diabetic polyneuropathy E10.42 [facility] [id number] [place] [address] 85190- 5546 Aug, [facility] [address] [address]- [address] Jul, Type 1 diabetes mellitus with diabetic polyneuropathy E10.42 [facility] [id number] [place] [address] 57683- 1215 Jun, [facility] [address] [address]- [address] Jun, Essential hypertension I10 ; Type 1 diabetes mellitus with diabetic polyneuropathy E10.42 and Mild episode of recurrent major depressive disorder F33.0 [facility] [id number] [place] [address] 33711- 3035 Mar, [facility] [id number] [place] [address] 73391- 2253 Mar, Type 1 diabetes mellitus without complications E10.9 ; Essential hypertension I10 ; Seizure disorder G40.909 ; Depressive disorder, not elsewhere classified F32.9 ; Acquired hypothyroidism E03.9 and Hypercholesterolemia E78.00 [facility] [id number] [place] [address] 56322- 0906 Feb, [facility] [id number] [place] [address] 40107- 9206 Feb, Hypercholesterolemia E78.00 [facility] [id number] [place] [address] 20395- 5370 Feb, Type 1 diabetes mellitus without complications E10.9 [facility] [id number] [place] [address] 08939- 3876 Feb, [facility] [id number] [place] [address] 16998- 5338 Feb, Type 1 diabetes mellitus without complications E10.9 ; Seizure disorder G40.909 ; Acquired hypothyroidism E03.9 ; Essential hypertension I10 ; Depressive disorder, not elsewhere classified F32.9 and Muscle spasm M62.838 [facility] [id number] [place] [address] 46235- 0199 Jan, Type 1 diabetes mellitus without complications E10.9 [facility] [id number] [place] [address] 68094- 3464 Jan, Type 1 diabetes mellitus without complications E10.9 [facility] [id number] [place] [address] 30166- 4183 Jan, [facility] [address] [place] [address] 8[address] Nov, [facility] [address] [address] 2966 Oct, [facility] [id number] [place] [address] 26052- 7409 Oct, [facility] [id number] [place] [address] 24871- 5797 Oct, Sebaceous cyst L72.3 [facility] [id number] [place] [address] 21414- 1096 September, [facility] [id number] [place] [address] 93676- 9790 September, [facility] [id number] [place] [address] 80321- 6443 September, Type 1 diabetes mellitus without complications E10.9 [facility] [id number] [place] [address] 06626- 5951 September, [facility] [id number] [place] [address] 25457- 4033 September, [facility] [id number] [place] [address] 67414- 1288 Aug, [facility] [address] [address] 3[address] Aug, [facility] [id number] [place] [address] 41550- 8275 Aug, Memory loss of unknown cause R41.3 and History of epilepsy Z86.69 [facility] [id number] [place] [address] 07158- 5073 Aug, Type 1 diabetes mellitus without complications E10.9 [facility] [address] [address]- 5146 14 Aug, 2016 [facility] [id number] [place] [address] 66288- 8660 Jul, Seizure disorder G40.909 ; Depressive disorder, not elsewhere classified F32.9 ; Type 1 diabetes mellitus without complications E10.9 ; Acquired hypothyroidism E03.9 ; Hypercholesterolemia E78.00 and Essential hypertension I10 [facility] [id number] [place] [address] 88484- 0469 Jul, Type 1 diabetes mellitus without complications E10.9 [place] [address] 86168- 9366 Jul, [place] [address] 48952- 8113 Jun, [place] [address] 75001- 0398 Jun, Type 1 diabetes mellitus without complications E10.9 and Screening cholesterol level Z13.220 [place] [address] 64785- 8162 Jun, Type 1 diabetes mellitus without complications E10.9 ; Screening cholesterol level Z13.220 and Seizure disorder G40.909 [place] [address] 29541- 6454 May, Type 1 diabetes mellitus without complications E10.9 [facility] [id number] [place] [address] 51307- 3578 May, Type 1 diabetes mellitus without complications E10.9 [facility] [facility] [id number] [place] [address] 29559- 8582 May, Type 1 diabetes mellitus without complications E10.9 [facility] [facility] [id number] [place] [address] 32112- 3195 May, Type 1 diabetes mellitus without complications E10.9 [facility] [id number] [place] [address] 00488- 0880 Apr, Type 1 diabetes mellitus without complications E10.9 [place] [address] 35107- 1038 Mar, [facility] [id number] [place] [address] 23433- 9599 Feb, [facility] [id number] [place] [address] 20927- 8487 Feb, Diabetes type 1, controlled E10.9 ; Neck pain M54.2 and Seizure disorder G40.909 [facility] [address] 28287- 1745 Nov, Sebaceous cyst L72.3 and Lipoma of back D17.1 [place] [address] 24252- 1650 Nov, Sebaceous cyst L72.3 and Lipoma of back D17.1 [place] [id number] [place] [address] 17994- 7130 September, [facility] [id number] [place] [address] 15967- 8772 September, Paronychia of fourth toe of right foot L03.031 and Ingrown nail of fourth toe of right foot L60.0 [place] [id number] [place] [address] 86955- 1477 September, [place] [id number] [place] [address] 54907- 0624 Aug, Nicotine dependence F17.200 [facility] [id number] [place] [address] 44875- 2118 Aug, [facility] [id number] [place] [address] 60613- 5316 Aug, [facility] [id number] [place] [address] 03550 -2952 Jul, Hyperglycemia due to type 1 diabetes mellitus E10.65 [facility] [id number] [place] [address] 48638- 9398 Jul, [facility] [address] [place] [address]- 8782 Jul, [facility] [address] [id number] [place] [address]- 2859 Jul, [facility] [address] [facility] [id number] [place] [address]- 9626 Jul, [facility] [address] [facility] [id number] [place] [address]- 0887 Jun, [facility] [address] [facility] [id number] [place] [address]- 6305 Jun, [facility] [address] [facility] [id number] [place] [address]- 0433 Jun, [facility] [address] [facility] [id number] [place] [address]- 5073 Jun, [facility] [address] [place] [address]- 3138 Jun, [facility] [id number] [place] [address]- 2887 May, Back pain M54.9 [facility] [address] [place] [address]- 3890 May, [facility] [address] [place] [address]- 9287 May, [facility] [address], [place] [address]- 3050 May, [facility] [address] [facility] [id number] [place] [address]- 3162 Apr, [facility] [address] [place] [address]- 7212 Apr, [facility] [id number] [place] [address]- 5104 Apr, Lumbar disc disease M51.9 [facility] [address] [address]- 1537 Apr, [facility] [id number] [place] [address] 18146- 1169 Apr, [facility] [id number] [place] [address] 00928- 4100 Apr, Back pain M54.9 [facility] [id number] [place] [address] 67731- 5294 Apr, Low back pain M54.5 ; Lumbar sprain and strain 847.2 ; Constipation K59.00 and Kidney stone N20.0 [facility] [id number] [place] [address] 95946- 8208 Mar, [facility] [id number] [place] [address] 84829- 3200 Feb, Diabetes type 1, controlled E10.9 and Depression F32.9 [facility] [id number] [place] [address] 02703- 6160 Feb, Depressive disorder, not elsewhere classified F32.9 [facility] [id number] [place] [address] 94091- 4609 Feb, [facility] [id number] [place] [address] 59023- 8303 Feb, [facility] [id number] [place] [address] 62138- 7219 24 Jan, 2015 [facility] [id number] [place] [address] 99655- 2692 22 Jan, 2014 [facility] [id number] [place] [address] 22725- 7821 14 Jan, 2015 [facility] [id number] [place] [address] 91554- 7944 09 Jan, 2014 [facility] [id number] [place] [address] 87865- 4622 09 Jan2014 [facility] [address] [facility] [id number] [place] [address]- 0241 Dec, [facility] [address] [facility] [id number] [place] [address]- 3661 Dec, [facility] [address] [facility] [id number] [place] [address]- 4154 Dec, [facility] [address] [facility] [id number] [place] [address]- 0911 Dec, [facility] [address] [facility] [facility] [id number] [place] [address]- 4608 Dec, [facility] [id number] [place] [address], [place] [address]- 1679 Nov, [facility] [address] [place] [address]- 9610 Nov, Type I diabetes mellitus 250.01 [facility] [address] [place] [address]- 4994 Nov, Type I diabetes mellitus 250.01 [facility] [address] [place] [address]- 5142 Nov, Type I diabetes mellitus 250.01 and Fatigue 780.79 [facility] [address] [place] [address]- 3276 Nov, [facility] [address] [place] [address]- 7997 Aug, [facility] [address] [facility] [id number] [place] [address]- 1380 Aug, [facility] [address] [place] [address]- 2412 Jul, [facility] [address] [facility] [id number] [place] [address]- 9636 Jul, [facility] [id number] [place] [address]- 6884 Jul, [facility] [place] [facility] [address] [id number] [place] [address]- 2725 Jul, [facility] [place] [facility] [address] [id number] [place] [address]- 4943 Jul, [facility] [place] [facility] [address] [id number] [place] [address]- 3960 Jun, [facility] [place] [facility] [address] [id number] [place] [address]- 8723 Jun, [facility] [place] [facility] [address] [id number] [place] [address]- 6251 Jun, [facility] [place] [facility] [address] [id number] [place] [address]- 7456 Jun, [facility] [place] [facility] [address] [id number] [place] [address]- 5505 Jun, [facility] [place] [facility] [address] [id number] [place] [address]- 9470 Jun, [facility] [place] [facility] [address] [id number] [place] [address]- 6730 May, [facility] [place] [facility] [address] [id number] [place] [address]- 5587 May, [facility] [place] [facility] [address] [id number] [place] [address]- 7897 May, [facility] [place] [facility] [address] [id number] [place] [address]- 0917 May, [facility] [place] [facility] [address] [id number] [place] [address]- 7318 May, [facility] [place] [facility] [address] [id number] [place] [address]- 8906 May, [facility] [place] [facility] [address] [id number] [place] [address]- 3806 May, [facility] [place] [facility] [address] [id number] [place] [address]- 8276 May, [facility] [address] [id number] [place] [address]- 4240 Apr, [facility] [place] [facility] [address] [id number] [place] [address]- 0559 Apr, [facility] [place] [facility] [address] [id number] [place] [address]- 5752 Apr, [facility] [place] [facility] [address] [id number] [place] [address]- 3481 Apr, [facility] [place] [facility] [address] [id number] [place] [address]- 4683 Apr, [facility] [place] [facility] [address] [id number] [place] [address]- 1044 Apr, [facility] [place] [facility] [address] [id number] [place] [address]- 6345 Apr, [facility] [place] [facility] [address] [id number] [place] [address]- 5065 Apr, [facility] [place] [facility] [address] [id number] [place] [address]- 1858 Apr, [facility] [place] [facility] [address] [id number] [place] [address]- 9953 Mar, [facility] [place] [facility] [address] [id number] [place] [address]- 9362 Mar, [facility] [place] [facility] [address] [id number] [place] [address]- 1270 Mar, [facility] [place] [facility] [address] [id number] [place] [address]- 5630 Mar, [facility] [place] [facility] [address] [id number] [place] [address]- 8501 Mar, [facility] [place] [facility] [address] [id number] [place] [address]- 1926 Mar, [facility] [place] [facility] [address] [id number] [place] [address]- 3587 Mar, [facility] [place] [facility] [address] [id number] [place] [address]- 1625 Mar, [facility] [place] [facility] [address] [id number] [place] 1490 Mar, [facility] [place] [facility] [address] [id number] [place] [address]- 9006 Mar, [facility] [place] [facility] [address] [id number] [place] [address]- 9190 Mar, [facility] [place] [facility] [address] [id number] [place] [address]- 9921 Mar, [facility] [place] [facility] [address] [id number] [place] [address]- 6865 Mar, [facility] [place] [facility] [address] [id number] [place] [address]- 9672 Feb, [facility] [place] [facility] [address] [id number] [place] [address]- 6358 Feb, [facility] [place] [facility] [address] [id number] [place] [address]- 8492 Feb, [facility] [place] [facility] [address] [id number] [place] [address]- 4143 Feb, [facility] [place] [facility] [address] [id number], [place] [address]- 8370 Jan, [facility] [place] [facility] [address] [id number] [place] [address]- 7814 Jan, [facility] [place] [facility] [address] [id number] [place] [address]- 0768 Dec, [facility] [place] [facility] [address] [id number], [place] [address]- 8591 Dec, [facility] [place] [facility] [address] [id number], [place] [address]- 6267 Dec, [facility] [place] [facility] [address] [id number] [place] [address]- 1654 Dec, [facility] [place] [facility] [address] [id number] [place] [address]- 3571 Dec, [facility] [place] [facility] [address] [id number] [place] [address]- 2722 Nov, [facility] [place] [facility] [address] [id number] [place] [address]- 5830 Nov, [facility] [place] [facility] [address] [id number] [place] [address]- 5957 Nov, [facility] [place] [facility] [address] [id number] [place] [address]- 0690 Nov, [facility] [place] [facility] [address] [id number] [place] [address]- 2726 Nov, [facility] [place] [facility] [address] [id number] [place] [address]- 2191 Nov, [facility] [place] [facility] [address] [id number] [place] [address]- 2089 Nov, [facility] [place] [facility] [address] [id number] [place] [address]- 0702 Nov, [facility] [place] [facility] [address] [id number] [place] [address]- 4253 Nov, [facility] [place] [facility] [address] [id number] [place] [address]- 8985 Nov, [facility] [place] [facility] [address] [id number] [place] [address]- 4521 Jun, [facility] [place] [facility] [address] [id number] [place] [address]- 4730 Jun, [facility] [place] [facility] [address] [id number] [place] [address]- 1180 Jun, [facility] [place] [facility] [address] [id number] [place] [address]- 0874 Jun, [facility] [place] [facility] [address] [id number] [place] [address]- 5208 Jun, [facility] [place] [facility] [address] [id number] [place] [address]- 2714 Jun, [facility] [place] [facility] [address] [id number] [place] [address]- 5554 Mar, [facility] [place] [facility] [address] [id number] [place] [address]- 4240 Mar, [facility] [place] [facility] [address] [id number] [place] [address]- 5038 Mar, [facility] [place] [facility] [address] [id number] [place] [address]- 6973 Mar, [facility] [address] [id number] [place] [address]- 1502 Feb, [facility] [place] [facility] [address] [id number] [place] [address]- 0051 Feb, [facility] [place] [facility] [address] [id number] [place] [address]- 8728 Jan, [facility] [place] [facility] [address] [id number] [place] [address]- 9926 Oct, [facility] [place] [facility] [address] [id number] [place] [address]- 8406 September, [facility] [place] [facility] [address] [id number] [place] [address]- 1650 September, [facility] [place] [facility] [address] [id number] [place] [address]- 1076 September, [facility] [place] [facility] [address] [id number] [place] [address]- 8189 September, [facility] [place] [facility] [address] [id number] [place] [address]- 2546 September, [facility] [place] [facility] [address] [id number] [place] [address]- 7587 15 Aug, 2012 [facility] [place] [facility] [address] [id number] [place] [address]- 3506 23 Jul, 2012 [facility] [place] [facility] [address] [id number] [place] [address]- 8566 19 Jul, 2012 [facility] [place] [facility] [address] [id number] [place] [address]- 8025 15 Jul, 2012 [facility] [place] [facility] [address] [id number] [place] [address]- 9297 Jul, [facility] [place] [facility] [address] [id number] [place] [address]28 24 May, 2012 [facility] [place] [facility] [address] [id number] [place] [address] May, [facility] [place] [facility] [address] [id number] [place] [address] 18 Apr, 2012 [facility] [place] [facility] [address] [id number] [place] [address] 18 Apr, 2012 [facility] [place] [facility] [address] [id number] [place] [address] Apr, [facility] [place] [facility] [address] [id number] [place] [address] Apr, [facility] [place] [facility] [address] [id number] [place] [address]294 30 Mar, 2012 [facility] [place] [facility] [address] [id number] [place] [address] Mar, [facility] [place] [facility] [address] [id number] [place] [address] Mar, [facility] [place] [facility] [address] [id number] [place] [address] 29 Mar, 2012 [facility] [place] [facility] [address] [id number] [place] [address] 29 Mar, 2012 [facility] [address] [id number] [place] [address] 29 Mar, 2012 [facility] [place] [facility] [address] [id number] [place] [address] Feb, [facility] [address] [id number] [place] [address] Feb, [facility] [place] [facility] [address] [id number] [place] [address] 27 Jan, 2012 [facility] [address] [id number] [place] [address], [place] [address] 27 Jan, 2012 [facility] [place] [facility] [address] [id number] [place] [address] 19 Jan, 2012 [facility] [address] [id number] [place] [address] 30 Dec, 2011 [facility] [address] [id number] [place] [address] 15 Dec, 2011 [facility] [place] [facility] [address] [id number] [place] [address] 5868 05 Jul, 2011 [facility] [address] [id number] [place] [address]84 29 Apr, 2011 [facility] [place] [facility] [address] [id number] [place] [address] 23 Apr, 2011 [facility] [place] [facility] [address] [id number] [place] [address] 6[address] 16 Apr, 2011 [facility] [place] [facility] [address] [id number] [place] [address] 06 Apr, 2011 [facility] [place] [facility] [address] [id number] [place] [address] 2568 17 Mar, 2011 [facility] [place] [facility] [address] [id number] [place] [address] 14 Mar, 2011 [facility] [address] [id number], [place] [address] 11 Mar, 2011 [facility] [address] [id number], [place] [address] 10 Mar, 2011 [facility] [address] [id number], [place] [address] 10 Mar, 2011 [facility] [address] [id number], [place] [address] 15 Jan, 2011 [facility] [address] [id number], [place] [address] 15 Nov, 2010 [facility] [address] [id number], [place] [address] 30 Apr, 2010 [facility] [id number] [address] Apr, [facility] [id number], [place] [address] Apr, [facility] [id number], [place] [address] Apr, [facility] [id number], [place] [address] Mar, [facility] [address] [id number], [place] [address] Mar, [facility] [address] [id number], [place] [address] 14 Feb, 2010 [facility] [address] [id number], [place] [address] Feb, [facility] [address] [id number], [place] [address] 10 Feb, 2010 IMMUNIZATIONS No Known Immunizations SOCIAL HISTORY Never Assessed REASON FOR VISIT upload PLAN OF CARE VITAL SIGNS MEDICATIONS Unknown Medications RESULTS No Results PROCEDURES No Known procedures INSTRUCTIONS MEDICATIONS ADMINISTERED No Known Medications MEDICAL (GENERAL) HISTORY Type Description Date Medical History diabetes mellitus Medical History epilepsy Medical History hypertension Medical History hypothyroid Medical History hyperlipidemia Surgical History disc surgery 2014 Surgical History disc surgery low back 1981 Surgical History right foot toe surgery 1982 Surgical History double hernia 2001 Hospitalization History surgeries
--- OUTSIDE RECORDS SUMMARY | 2017-11-01 09:03 | XMS REPORT ---
Author Author KATHERINE HILTON [facility] eClinicalWorks Address Unknown Phone Unavailable Care Team Providers Care Float Nurse Name Role Phone KATHERINE HILTON CP Unavailable [...] Start Date End Date Status Dosage Lipitor [facility] [address]-07 40 mg 1 TAB orally once a day August 13, 2014 1 tablet by Oral route 1 time per day Morphine Sulfate [facility] [address]-41 30 MG Orally every 4 hrs May 16, 2015 1 tablet as needed Levitra [facility] [address]-43 20 mg August 22, 2014 1 tablet by Oral route 1 time per day PRN Lamotrigine [facility] 42568290505 200 MG TAKE ONE TABLET BY MOUTH IN THE MORNING AND ONE AND ONE-HALF TABLETS IN THE EVENING Naproxen [facility] [address]-78 500 mg August 13, 2014 take 1 tablet by Oral route 2 times per day with food p c NovoLog Flexpen [facility] [address]-62 100 UNIT/ML Subcutaneous 3 times a day December 05, 2013 inject 5 Units by Subcutaneous route before meals 3 times per day Baclofen [facility] [address]-10 10 MG Orally @ HS May 16, 2015 1-2 tablet Oxycodone-Acetaminophen [facility] [address]-83 10-325 MG Orally every 6 hrs 1 tablet as needed Zoloft [facility] [address]-46 50 MG Orally Once a day Mar 18, 2015 1 tablet Levemir Flexpen ND 0 100 UNIT/ML Decrease the PM dose by 1 units til FBS > 80. AM and PM dosing December 05, 2013 20AM and 20 PM Procedures Procedure Coding System Code Date VENIPUNCT, ROUTINE* CPT-4 39969 May 16, 2015 Office Visit, Est Pt., Level 4 CPT-4 12991 May 16, 2015 COMPREHEN METABOLIC PANEL CPT-4 80743 May 16, 2015 Vital Signs Date/Time: May 16, 2015 Temperature 97.8 F Weight 174 lbs Height 68 in BMI 26.45 Index Blood Pressure Diastolic 90 mmHg Blood Pressure Systolic 168 mmHg Cardiac Monitoring Heart Rate 102 bpm Results Name Result Date Reference Range Unit Abnormality Flag ROUTINE VENIPUNCTURE CMP ----Sodium, Serum 130 20150516 134-144 mmol/L L ----BUN/Creatinine Ratio 15 20150516 10-22 ----Chloride, Serum 90 20150516 97-108 mmol/L L ----Potassium, Serum 4.3 20150516 3.5-5.2 mmol/L ----Calcium, Serum 9.3 20150516 8.6-10.2 mg/dL ----Protein, Total, Serum 6.6 20150516 6.0-8.5 g/dL ----Carbon Dioxide, Total 26 20150516 18-29 mmol/L ----A/G Ratio 1.8 20150516 1.1-2.5 ----eGFR If NonAfricn Am 88 [id number] >59 mL/min/1.73 ----Bilirubin, Total 0.3 20150516 0.0-1.2 mg/dL ----eGFR If Africn Am 101 [id number] >59 mL/min/1.73 ----BUN 14 20150516 8-27 mg/dL ----Albumin, Serum 4.2 20150516 3.6-4.8 g/dL ----Globulin, Total 2.4 20150516 1.5-4.5 g/dL ----Creatinine, Serum 0.94 20150516 0.76-1.27 mg/dL ----ALT (SGPT) 16 20150516 0-44 IU/L ----Glucose, Serum 350 20150516 65-99 mg/dL H ----Alkaline Phosphatase, S 91 20150516 39-117 IU/L ----AST (SGOT) 12 20150516 0-40 IU/L Summary Purpose eClinicalWorks Submission
--- OUTSIDE RECORDS SUMMARY | 2017-11-01 09:03 | XMS REPORT ---
Author Author KATHERINE HILTON [facility] eClinicalWorks Address Unknown Phone Unavailable Care Team Providers Care Adjunct Communications Faculty Member Name Role Phone KATHERINE HILTON CP Unavailable Allergies, Adverse Reactions, Alerts Substance Reaction Event Type N.K.D.A. Info Not Available Non Drug Allergy Problems Problem Type Condition Code Onset Dates Condition Status Problem Depressive disorder, not elsewhere classified F32.9 Active Problem Diabetes type 1, controlled E10.9 Active Problem Seizure disorder G40.909 Active Assessment Seizure disorder G40.909 Active Assessment Diabetes type 1, controlled E10.9 Active Assessment Neck pain M54.2 Active Medications Medication Code System Code Instructions Start Date End Date Status Dosage Lamotrigine [facility] 21979326407 200 MG TAKE ONE TABLET BY MOUTH IN THE MORNING AND ONE AND ONE-HALF TABLETS IN THE EVENING Test strips ND 0 Test Strips One Touch Ultra Link 8-10 Jul 21, 2015 test blood sugar Quinapril HCl [facility] 27196616861 20 MG TAKE ONE TABLET BY MOUTH DAILY Atorvastatin Calcium [facility] 04038876732 40 MG TAKE ONE TABLET BY MOUTH ONCE DAILY Hydrocodone-Acetaminophen [facility] [address]-35 7.5-325 MG Orally every 4 hrs, prn pain Mar 12, 2016 1 Hydrochlorothiazide [facility] 35361104520 25 MG TAKE ONE TABLET BY MOUTH DAILY NovoLog [facility] [address]-30 100 UNIT/ML Subcutaneous August 12, 2015 as directed per pump- 2 vials monthly Procedures Procedure Coding System Code Date Office Visit, Est Pt., Level 3 CPT-4 56779 Mar 12, 2016 GLYCATED HEMOGLOBIN TEST CPT-4 70099 Mar 12, 2016 Vital Signs Date/Time: Mar 12, 2016 Cardiac Monitoring Heart Rate 84 bpm Weight 170 lbs Height 68 in BMI 25.85 Index Blood Pressure Diastolic 86 mmHg Blood Pressure Systolic 162 mmHg Results Name Result Date Reference Range Unit Abnormality Flag A1C (IN HOUSE) ----A1C IN HOUSE 8.4 20160312 4.3 - 5.6 % ----Previous A1c 7.7 20160312 ----Lot [id number] ----Exp date [id number] MRI : Cervical w/o Contrast Summary Purpose eClinicalWorks Submission
--- OUTSIDE RECORDS SUMMARY | 2017-11-01 09:04 | XMS REPORT ---
Author Author KATHERINE HILTON [facility] eClinicalWorks Address Unknown Phone Unavailable Care Team Providers Care Senior Dot Net Developer Name Role Phone KATHERINE HILTON CP Unavailable [...]
--- OUTSIDE RECORDS SUMMARY | 2017-11-01 09:04 | XMS REPORT ---
Author Author KATHERINE HILTON [facility] eClinicalWorks Address Unknown Phone Unavailable Care Team Providers Care Pharmacy Benefits Coordinator Name Role Phone KATHERINE HILTON CP Unavailable [...]
--- OUTSIDE RECORDS SUMMARY | 2017-11-01 09:04 | XMS REPORT ---
Author Author NA MORALES Organization [facility] Address [address] [place] [address] Care Team Providers Care Regional Business Manager Name Role Phone NA MORALES Unavailable PROBLEMS Type Condition ICD9-CM Code [id number] Code Onset Dates Condition Status SNOMED Code Problem Seizure disorder G40.909 Active 960260255 Problem Depressive disorder, not elsewhere classified F32.9 Active 83271331 Problem History of epilepsy Z86.69 Active 168797099 Problem Memory loss of unknown cause R41.3 Active 28454560 Problem Essential hypertension I10 Active 76559383 Problem Type 1 diabetes mellitus without complications E10.9 Active 377313366 Problem Hypercholesterolemia E78.00 Active 27038313 Problem Acquired hypothyroidism E03.9 Active 058734309 ALLERGIES Unknown Allergies SOCIAL HISTORY No smoking Hx information available PLAN OF CARE VITAL SIGNS MEDICATIONS Medication Instructions Dosage Frequency Start Date End Date Duration Status Test strips Test Strips One Touch Ultra Link 8-10 test blood sugar JunMay, Active Rico Contour Test Test Strips In Vitro 8-10 times per day as directed May, Active RESULTS No Results PROCEDURES No Known procedures IMMUNIZATIONS No Known Immunizations
--- OUTSIDE RECORDS SUMMARY | 2017-11-01 09:04 | XMS REPORT ---
Author Author NA Whitley Organization [facility] Address [address] [place] [address] Care Team Providers Care Director Of Philanthropy Name Role Phone NA Whitley Unavailable PROBLEMS Type Condition ICD9-CM Code HQS62-OF Code Onset Dates Condition Status SNOMED Code Problem Seizure disorder G40.909 Active 231438844 Problem Essential hypertension I10 Active 86604815 Problem Type 1 diabetes mellitus without complications E10.9 Active 870850641 Problem Depressive disorder, not elsewhere classified F32.9 Active 52241511 Problem Type 1 diabetes mellitus with diabetic polyneuropathy E10.42 Active 25317421 Problem Mild episode of recurrent major depressive disorder F33.0 Active 127546693 Problem Hypercholesterolemia E78.00 Active 96154905 Problem Acquired hypothyroidism E03.9 Active 809433083 Problem Memory loss of unknown cause R41.3 Active 03195903 Problem History of epilepsy Z86.69 Active 016870851 ALLERGIES No Information ENCOUNTERS Encounter Location Date Diagnosis [facility] [address] [address] September, [facility] [address] [address]60- 5157 Aug, Type 1 diabetes mellitus with diabetic polyneuropathy E10.42 [facility] [id number] [place] [address] 82220- 5817 Aug, [facility] [address] 15945- 8208 Jul, Type 1 diabetes mellitus with diabetic polyneuropathy E10.42 [facility] [id number] [place] [address] 32507- 7400 Jun, [facility] [address] [address]66- 9035 Jun, Essential hypertension I10 ; Type 1 diabetes mellitus with diabetic polyneuropathy E10.42 and Mild episode of recurrent major depressive disorder F33.0 [facility] [id number] [place] [address] 64678- 0067 Mar, [facility] [id number] [place] [address] 45133- 1229 Mar, Type 1 diabetes mellitus without complications E10.9 ; Essential hypertension I10 ; Seizure disorder G40.909 ; Depressive disorder, not elsewhere classified F32.9 ; Acquired hypothyroidism E03.[address] [facility] [id number] [place] [address] 77107- 9110 Feb, [facility] [id number] [place] [address] 81616- 3333 Feb, Hypercholesterolemia E78.00 [facility] [id number] [place] [address] 00452- 0449 Feb, Type 1 diabetes mellitus without complications E10.9 [facility] [id number] [place] [address] 79136- 2043 Feb, [facility] [id number] [place] [address] 82458- 4092 Feb, Type 1 diabetes mellitus without complications E10.9 ; Seizure disorder G40.909 ; Acquired hypothyroidism E03.9 ; Essential hypertension I10 ; Depressive disorder, not elsewhere classified F32.9 [address]62.838 [facility] [id number] [place] [address] 72177- 3288 Jan, Type 1 diabetes mellitus without complications E10.9 [facility] [id number] [place] [address] 81439- 5406 Jan, Type 1 diabetes mellitus without complications E10.9 [facility] [id number] [place] [address] 53330- 0093 Jan, [facility] [address] [address] [address] 1381 Nov, [facility] [address] [address] 4029 Oct, [facility] [id number] [place] [address] 25498- 0070 Oct, [facility] [id number] [place] [address] 95686- 0356 Oct, Sebaceous cyst L72.3 [facility] [id number] [place] [address] 67081- 7295 September, [facility] [id number] [place] [address] 24882- 7638 September, [facility] [id number] [place] [address] 26819- 3803 September, Type 1 diabetes mellitus without complications E10.9 [facility] [id number] [place] [address] 46242- 9137 September, [facility] [id number] [place] [address] 85933- 2365 September, [facility] [id number] [place] [address] 55194- 0475 Aug, [facility] [address] [address] 1670 Aug, [facility] [id number] [place] [address] 08119- 9419 Aug, Memory loss of unknown cause R41.3 and History of epilepsy Z86.69 [facility] [id number] [place] [address] 52193- 6305 Aug, Type 1 diabetes mellitus without complications E10.9 [facility] [address] [address]- 9644 14 Aug, 2016 [facility] [id number] [place] [address] 21128- 5483 Jul, Seizure disorder G40.909 ; Depressive disorder, not elsewhere classified F32.9 ; Type 1 diabetes mellitus without complications E10.9 ; Acquired hypothyroidism E03.9 ; Hypercholesterolemia E78.00 [address] Ess[address] hypertension I10 [facility] [id number] [place] [address] 48552- 6434 Jul, Type 1 diabetes mellitus without complications E10.9 [place] [address] 12144- 5022 Jul, [place] [address] 38822- 1538 Jun, [place] [facility] [address] 25203- 0764 Jun, Type 1 diabetes mellitus without complications E10.9 and Screening cholesterol level Z13.220 [place] [facility] [address] 20120- 2129 Jun, Type 1 diabetes mellitus without complications E10.9 ; Screening cholesterol level Z13.220 and Seizure disorder G40.909 [place] [facility] [address] 83074- 7739 May, Type 1 diabetes mellitus without complications E10.9 [facility] [facility] [id number] [place] [address] 33901- 9090 May, Type 1 diabetes mellitus without complications E10.9 [facility] [id number] [place] [address] 90270- 8563 May, Type 1 diabetes mellitus without complications E10.9 [facility] [id number] [place] [address] 31360- 0362 May, Type 1 diabetes mellitus without complications E10.9 [facility] [facility] [id number] [place] [address] 87895- 8445 Apr, Type 1 diabetes mellitus without complications E10.9 [place] [address] 17045- 7885 Mar, [facility] [id number] [place] [address] 12390- 8227 Feb, [facility] [id number] [place] [address] 62339- 2488 Feb, Diabetes type 1, controlled E10.9 ; Neck pain M54.2 and Seizure disorder G40.909 [facility] [address] 14143- 6966 Nov, Sebaceous cyst L72.3 and Lipoma of back D17.1 [place] [address] 04685- 6714 Nov, Sebaceous cyst L72.3 and Lipoma of back D17.1 [place] [id number] [place] [address] 87154- 2658 September, [place] [facility] [id number] [place] [address] 37608- 0737 September, Paronychia of fourth toe of right foot L03.031 and Ingrown nail of fourth toe of right foot L60.0 [place] [id number] [place] [address] 75627- 3130 September, [facility] [facility] [id number] [place] [address] 82160- 2945 Aug, Nicotine dependence F17.200 [facility] [facility] [id number] [place] [address] 36949- 4608 Aug, [facility] [id number] [place] [address] 48848- 1047 Aug, [facility] [id number] [place] [address] 25285 -9007 Jul, Hyperglycemia due to type [address] [facility] [id number] [place] [address] 40624- 4763 Jul, [facility] [id number] [place] [address]- 1560 Jul, [facility] [address] [id number] [place] [address]- 0942 Jul, [facility] [address] [id number] [place] [address]- 2046 Jul, [facility] [address] [id number] [place] [address]- 1724 Jun, [facility] [address] [id number] [place] [address]- 2851 Jun, [facility] [address] [id number] [place] [address]- 3644 Jun, [facility] [address] [id number] [place] [address]- 5779 Jun, [facility] [id number] [place] [address]- 9120 Jun, [facility] [id number] [place] [address]- 9993 May, Back pain M54.9 [facility] [id number] [place] [address]- 3045 May, [facility] [id number] [place] [address]- 2154 May, [facility] [address] [address]- 0462 May, [facility] [address] [id number] [place] [address]- 9979 Apr, [facility] [id number] [place] [address]- 9442 Apr, [facility] [address] [id number] [place] [address]- 4011 Apr, Lumbar disc disease M51.9 [facility] [address] [address]- 5999 Apr, [facility] [id number] [place] [address] 72161- 2156 Apr, [facility] [id number] [place] [address] 40457- 2277 Apr, Back pain M54.9 [facility] [id number] [place] [address] 17291- 5609 Apr, Low back pain M54.5 ; Lumbar sprain and strain 847.2 ; Constipation K59.00 and Kidney stone N20.0 [facility] [id number] [place] [address] 38125- 4764 Mar, [facility] [id number] [place] [address] 23601- 1670 Feb, Diabetes type 1, controlled E10.[address] [facility] [id number] [place] [address] 55079- 7445 Feb, Depressive disorder, not elsewhere classified F32.9 [facility] [id number] [place] [address] 92438- 6363 Feb, [facility] [id number] [place] [address] 01811- 6365 Feb, [facility] [id number] [place] [address] 07094- 5682 24 Jan, 2015 [facility] [id number] [place] [address] 80764- 1142 [address], 2014 [facility] [id number] [place] [address] 61352- 8031 14 Jan, 2015 [facility] [id number] [place] [address] 10191- 4728 09 Jan, 2014 [facility] [id number] [place] [address] 27555- [address] [facility] [address] [id number] [place] [address]- 3053 Dec, [facility] [address] [id number] [place] [address]- 3889 Dec, [facility] [address] [id number] [place] [address]- 6854 Dec, [facility] [address] [id number] [place] [address]- 1656 Dec, [facility] [address] [id number] [place] [address]- 3050 Dec, [facility] [id number] [place] [address], [place] [address]- 0377 Nov, [facility] [id number] [place] [address]- 9350 Nov, Type I diabetes mellitus 250.01 [facility] [id number] [place] [address]- 1520 Nov, Type I diabetes mellitus 250.01 [facility] [id number] [place] [address]- 2945 Nov, Type I diabetes mellitus 250.[address] [facility] [id number] [place] [address]- 3723 Nov, [facility] [id number] [place] [address]- 2940 Aug, [facility] [address] [id number] [place] [address]- 5679 Aug, [facility] [id number] [place] [address]- 6391 Jul, [facility] [address] [id number] [place] [address]- 6616 Jul, [facility] [address] [id number] [place] [address]- 1440 Jul, [facility] [place] [facility] [address] [id number] [place] [address]- 8772 Jul, [facility] [place] [facility] [address] [id number] [place] [address]- 9839 Jul, [facility] [place] [facility] [address] [id number] [place] [address]- 6535 Jun, [facility] [place] [facility] [address] [id number] [place] [address]- 2967 Jun, [facility] [place] [facility] [address] [id number] [place] [address]- 2099 Jun, [facility] [place] [facility] [address] [id number] [place] [address]- 5060 Jun, [facility] [place] [facility] [address] [id number] [place] [address]- 8981 Jun, [facility] [place] [facility] [address] [id number] [place] [address]- 1359 Jun, [facility] [place] [facility] [address] [id number] [place] [address]- 6969 May, [facility] [place] [facility] [address] [id number] [place] [address]- 4489 May, [facility] [place] [facility] [address] [id number] [place] [address]- 4711 May, [facility] [place] [facility] [address] [id number] [place] [address]- 6635 May, [facility] [place] [facility] [address] [id number] [place] [address]- 7736 May, [facility] [place] [facility] [address] [id number] [place] [address]- 4821 May, [facility] [place] [facility] [address] [id number] [place] [address]- 3102 May, [facility] [place] [facility] [address] [id number] [place] [address]- 8923 May, [facility] [address] [id number] [place] [address]- 6370 Apr, [facility] [place] [facility] [address] [id number] [place] [address]- 9528 Apr, [facility] [place] [facility] [address] [id number] [place] [address]- 5263 Apr, [facility] [place] [facility] [address] [id number] [place] [address]- 5059 Apr, [facility] [place] [facility] [address] [id number] [place] [address]- 4975 Apr, [facility] [place] [facility] [address] [id number] [place] [address]- 2786 Apr, [facility] [place] [facility] [address] [id number] [place] [address]- 5180 Apr, [facility] [place] [facility] [address] [id number] [place] [address]- 9337 Apr, [facility] [place] [facility] [address] [id number] [place] [address]- 9608 Apr, [facility] [place] [facility] [address] [id number] [place] [address]- 8121 Mar, [facility] [place] [facility] [address] [id number] [place] [address]- 1895 Mar, [facility] [place] [facility] [address] [id number] [place] [address]- 6704 Mar, [facility] [place] [facility] [address] [id number] [place] [address]- 0882 Mar, [facility] [place] [facility] [address] [id number] [place] [address]- 6964 Mar, [facility] [place] [facility] [address] [id number] [place] [address]- 3106 Mar, [facility] [place] [facility] [address] [id number] [place] [address]- 0165 Mar, [facility] [place] [facility] [address] [id number] [place] [address]- 8545 Mar, [facility] [place] [facility] [address] [id number] [place] 3358 Mar, [facility] [place] [facility] [address] [id number] [place] [address]- 5515 Mar, [facility] [place] [facility] [address] [id number] [place] [address]- 6169 Mar, [facility] [place] [facility] [address] [id number] [place] [address]- 7311 Mar, [facility] [place] [facility] [address] [id number] [place] [address]- 0625 Mar, [facility] [place] [facility] [address] [id number] [place] [address]- 6342 Feb, [facility] [place] [facility] [address] [id number] [place] [address]- 6627 Feb, [facility] [place] [facility] [address] [id number] [place] [address]- 2989 Feb, [facility] [place] [facility] [address] [id number] [place] [address]- 7519 Feb, [facility] [place] [facility] [address] [id number] [address]- 5757 Jan, [facility] [place] [facility] [address] [id number] [place] [address]- 6050 Jan, [facility] [place] [facility] [address] [id number] [place] [address]- 5498 Dec, [facility] [place] [facility] [address] [id number] [address]- 2126 Dec, [facility] [place] [facility] [address] [id number] [address]- 3416 Dec, [facility] [place] [facility] [address] [id number] [place] [address]- 2147 Dec, [facility] [place] [facility] [address] [id number] [place] [address]- 9663 Dec, [facility] [place] [facility] [address] [id number] [place] [address]- 9391 Nov, [facility] [place] [facility] [address] [id number] [place] [address]- 2777 Nov, [facility] [place] [facility] [address] [id number] [place] [address]- 3921 Nov, [facility] [place] [facility] [address] [id number] [place] [address]- 7644 Nov, [facility] [place] [facility] [address] [id number] [place] [address]- 9105 Nov, [facility] [place] [facility] [address] [id number] [place] [address]- 4395 Nov, [facility] [place] [facility] [address] [id number] [place] [address]- 1292 Nov, [facility] [place] [facility] [address] [id number] [place] [address]- 2691 Nov, [facility] [place] [facility] [address] [id number] [place] [address]- 1741 Nov, [facility] [place] [facility] [address] [id number] [place] [address]- 4900 Nov, [facility] [place] [facility] [address] [id number] [place] [address]- 9991 Jun, [facility] [place] [facility] [address] [id number] [place] [address]- 5287 Jun, [facility] [place] [facility] [address] [id number] [place] [address]- 7347 Jun, [facility] [place] [facility] [address] [id number] [place] [address]- 4609 Jun, [facility] [place] [facility] [address] [id number] [place] [address]- 3306 Jun, [facility] [place] [facility] [address] [id number] [place] [address]- 1195 Jun, [facility] [place] [facility] [address] [id number] [place] [address]- 4700 Mar, [facility] [place] [facility] [address] [id number] [place] [address]- 2936 Mar, [facility] [place] [facility] [address] [id number] [place] [address]- 5014 Mar, [facility] [place] [facility] [address] [id number] [place] [address]- 9009 Mar, [facility] [address] [id number] [place] [address]- 6645 Feb, [facility] [place] [facility] [address] [id number] [place] [address] Feb, [facility] [place] [facility] [address] [id number] [place] [address] Jan, [facility] [place] [facility] [address] [id number] [place] [address] Oct, [facility] [place] [facility] [address] [id number] [place] [address] September, [facility] [place] [facility] [address] [id number] [place] [address] September, [facility] [place] [facility] [address] [id number] [place] [address] September, [facility] [place] [facility] [address] [id number] [place] [address] September, [facility] [place] [facility] [address] [id number] [place] [address] September, [facility] [place] [facility] [address] [id number] [place] [address] 15 Aug, 2012 [facility] [place] [facility] [address] [id number] [place] [address] 23 Jul, 2012 [facility] [place] [facility] [address] [id number] [place] [address] 19 Jul, 2012 [facility] [place] [facility] [address] [id number] [place] [address] 15 Jul, 2012 [facility] [place] [facility] [address] [id number] [place] [address] Jul, [facility] [place] [facility] [address] [id number] [place] [address] 24 May, 2012 [facility] [place] [facility] [address] [id number] [place] [address]- [address] May, [facility] [place] [facility] [address] [id number] [place] [address] 18 Apr, 2012 [facility] [place] [facility] [address] [id number] [place] [address]- [address]85 18 Apr, 2012 [facility] [place] [facility] [address] [id number] [place] [address]- [address] Apr, [facility] [place] [facility] [address] [id number] [place] [address] Apr, [facility] [place] [facility] [address] [id number] [place] [address] 30 Mar, 2012 [facility] [place] [facility] [address] [id number] [place] [address]44 Mar, [facility] [place] [facility] [address] [id number] [place] [address] Mar, [facility] [place] [facility] [address] [id number] [place] [address] 29 Mar, 2012 [facility] [place] [facility] [address] [id number] [place] [address] 29 Mar, 2012 [facility] [address] [id number] [place] [address]- [address] 29 Mar, 2012 [facility] [place] [facility] [address] [id number] [place] [address] Feb, [facility] [address] [id number] [place] [address] Feb, [facility] [place] [facility] [address] [id number] [place] [address] 27 Jan, 2012 [facility] [address] [id number] [place] [address], [place] [address] 27 Jan, 2012 [facility] [place] [facility] [address] [id number] [place] [address] 19 Jan, 2012 [facility] [address] [id number] [place] [address]285 30 Dec, 2011 [facility] [address] [id number] [place] [address] 15 Dec, 2011 [facility] [place] [facility] [address] [id number] [place] [address]- [address] 05 Jul, 2011 [facility] [address] [id number] [place] [address] 29 Apr, 2011 [facility] [place] [facility] [address] [id number] [place] [address] 23 Apr, 2011 [facility] [place] [facility] [address] [id number] [place] [address]32 16 Apr, 2011 [facility] [place] [facility] [address] [id number] [place] [address] 06 Apr, 2011 [facility] [place] [facility] [address] [id number] [place] [address]- 8666 17 Mar, 2011 [facility] [place] [facility] [address] [id number] [place] [address] 14 Mar, 2011 [facility] [address] [id number] [address] [address], [address] [facility] [address] [id number] [place] [address] [address] [facility] [address] [id number] [place] [address] [address], [address] [facility] [address] [id number] [place] [address] 15 Jan, [facility] [facility] [address] [id number] [address] 15 Nov, 2010 [facility] [address] [id number] [place] [address] [address], [address] [facility] [address] [id number] [place] [address] Apr, [facility] [address] [id number] [address] Apr, [facility] [address] [id number] [address] Apr, [facility] [address] [id number] [address] Mar, [facility] [address] [id number] [place] [address] Mar, [facility] [address] [id number] [address] 14 Feb, [address] [facility] [address] [id number] [place] [address] Feb, [facility] [address] [id number] [place] [address] Feb, IMMUNIZATIONS No Known Immunizations SOCIAL HISTORY Never Assessed REASON FOR VISIT PLAN OF CARE VITAL SIGNS MEDICATIONS Medication [...]
--- OUTSIDE RECORDS SUMMARY | 2017-11-01 09:05 | XMS REPORT ---
Author Author NA Whitley Organization [facility] Address [address] [place] [address] Care Team Providers Care Parasitology Teacher Name Role Phone NA Whitley Unavailable PROBLEMS Type Condition ICD9-CM Code [id number] Code Onset Dates Condition Status SNOMED Code Problem Seizure disorder G40.909 Active 399718197 Problem Essential hypertension I10 Active 04064300 Problem Type 1 diabetes mellitus without complications E10.9 Active 063124908 Problem Depressive disorder, not elsewhere classified F32.9 Active 05047433 Problem Type 1 diabetes mellitus with diabetic polyneuropathy E10.42 Active 11562296 Problem Mild episode of recurrent major depressive disorder F33.0 Active 313479635 Problem Hypercholesterolemia E78.00 Active 33384782 Problem Acquired hypothyroidism E03.9 Active 794310322 Problem Memory loss of unknown cause R41.3 Active 43202980 Problem History of epilepsy Z86.69 Active [id number] ALLERGIES No Information ENCOUNTERS Encounter Location Date Diagnosis [facility] [id number] [place] [address] 00011- 6492 Jul, [facility] [id number] [place] [address] 93725- 4177 Jun, [facility] [id number] [place] [address] 46372- 5385 Jun, Essential hypertension I10 ; Type 1 diabetes mellitus with diabetic polyneuropathy E10.42 and Mild episode of recurrent major depressive disorder F33.0 [facility] [id number] [place] [address] 46636- 2998 Mar, [facility] [id number] [place] [address] 91971- 1435 Mar, Type 1 diabetes mellitus without complications E10.9 ; Essential hypertension I10 ; Seizure disorder G40.909 ; Depressive disorder, not elsewhere classified F32.9 ; Acquired hypothyroidism E03.9 and Hypercholesterolemia E78.00 [facility] [id number] [place] [address] 07584- 9976 Feb, [facility] [id number] [place] [address] 38121- 8806 Feb, Hypercholesterolemia E78.00 [facility] [id number] [place] [address] 08571- 7002 Feb, Type 1 diabetes mellitus without complications E10.9 [facility] [id number] [place] [address] 97562- 3936 Feb, [facility] [id number] [place] [address] 23163- 4276 Feb, Type 1 diabetes mellitus without complications E10.9 ; Seizure disorder G40.909 ; Acquired hypothyroidism E03.9 ; Essential hypertension I10 ; Depressive disorder, not elsewhere classified F32.9 and Muscle spasm M62.838 [facility] [id number] [place] [address] 19221- 7155 Jan, Type 1 diabetes mellitus without complications E10.9 [facility] [id number] [place] [address] 63177- 4932 Jan, Type 1 diabetes mellitus without complications E10.9 [facility] [id number] [place] [address] 96764- 1526 Jan, [facility] [id number] [place] [address] 60705- 1922 Nov, [facility] [id number] [place] [address] 72929- 4626 Oct, [facility] [id number] [place] [address] 75604- 4027 Oct, [facility] [id number] [place] [address] 43866- 5406 Oct, Sebaceous cyst L72.3 [facility] [address] [address] 3762 September, [facility] [id number] [place] [address] 10667- 2218 September, [facility] [id number] [place] [address] 63905- 9219 September, Type 1 diabetes mellitus without complications E10.9 [facility] [id number] [place] [address] 62410- 8037 September, [facility] [id number] [place] [address] 98321- 4473 September, [facility] [id number] [place] [address] 89544- 1419 Aug, [facility] [id number] [place] [address] 57334- 2959 Aug, [facility] [id number] [place] [address] 09224- 5305 Aug, Memory loss of unknown cause R41.3 and History of epilepsy Z86.69 [facility] [id number] [place] [address] 11223- 8885 Aug, Type 1 diabetes mellitus without complications E10.9 [facility] [id number] [place] [address] 85886- 3212 Aug, [facility] [id number] [place] [address] 29042- 0063 Jul, Seizure disorder G40.909 ; Depressive disorder, not elsewhere classified F32.9 ; Type 1 diabetes mellitus without complications E10.9 ; Acquired hypothyroidism E03.9 ; Hypercholesterolemia E78.00 and Essential hypertension I10 [facility] [id number] [place] [address] 97671- 7745 Jul, Type 1 diabetes mellitus without complications E10.9 [facility] [id number] [place] [address] 08382- 3531 Jul, [facility] [id number] [place] [address] 61273- 9365 Jun, [facility] [id number] [place] [address] 40297- 8445 Jun, Type 1 diabetes mellitus without complications E10.9 and Screening cholesterol level Z13.220 [facility] [id number] [place] [address] 11419- 8879 Jun, Type 1 diabetes mellitus without complications E10.9 ; Screening cholesterol level Z13.220 and Seizure disorder G40.909 [facility] [id number] [place] [address] 03882- 0406 May, Type 1 diabetes mellitus without complications E10.9 [facility] [id number] [place] [address] 69250- 6419 May, Type 1 diabetes mellitus without complications E10.9 [facility] [id number] [place] [address] 84942- 6399 May, Type 1 diabetes mellitus without complications E10.9 [facility] [id number] [place] [address] 67518- 0811 May, Type 1 diabetes mellitus without complications E10.9 [facility] [id number] [place] [address] 17935- 1138 Apr, Type 1 diabetes mellitus without complications E10.9 [facility] [id number] [place] [address] 35107- 3040 Mar, [facility] [id number] [place] [address] 67019- 6478 Feb, [facility] [id number] [place] [address] 11491- 5442 Feb, Diabetes type 1, controlled E10.9 ; Neck pain M54.2 and Seizure disorder G40.909 [facility] [id number] [place] [address] 34449- 9055 Nov, Sebaceous cyst L72.3 and Lipoma of back D17.1 [facility] [id number] [place] [address] 73392- 8623 Nov, Sebaceous cyst L72.3 and Lipoma of back D17.1 [facility] [id number] [place] [address] 45988- 7135 September, [facility] [id number] [place] [address] 61850- 0815 September, Paronychia of fourth toe of right foot L03.031 and Ingrown nail of fourth toe of right foot L60.0 [facility] [id number] [place] [address] 90162- 5986 September, [facility] [id number] [place] [address] 49742- 6362 Aug, Nicotine dependence F17.200 [facility] [id number] [place] [address] 13100- 9922 Aug, [facility] [id number] [place] [address] 96184- 1785 Aug, [facility] [id number] [place] [address] 96485 -7130 Jul, Hyperglycemia due to type 1 diabetes mellitus E10.65 [facility] [id number] [place] [address] 04638- 6394 Jul, [facility] [id number] [place] [address] 35998- 4534 Jul, [facility] [id number] [place] [address] 15102- 4646 Jul, [facility] [id number] [place] [address] [id number]- 1985 Jul, [facility] [id number] [place] [address] 55512- 7063 Jun, [facility] [address] [facility] [id number] [place] [address]- 4525 Jun, [facility] [id number] [place] [address], [place] [address]- 7256 Jun, [facility] [address] [facility] [id number] [place] [address] 2546 Jun, [facility] [address] [facility] [id number] [place] [address], [place] [address] 2546 Jun, [facility] [address] [facility] [id number] [place] [address], [place] [address]- 8656 May, Back pain M54.9 [facility] [id number] [place] [address]- 6814 May, [facility] [id number] [place] [address], [place] [address]- 2999 May, [facility] [address] [place] [address]- 7212 May, [facility] [id number] [place] [address], [place] [address]- 9231 Apr, [facility] [address] [address]- 8088 Apr, [facility] [address] [address]- 0611 Apr, Lumbar disc disease M51.9 [facility] [address] [facility] [id number] [address] 2546 Apr, [facility] [id number] [place] [address] 2546 Apr, [facility] [address] [place] [address]- 2547 18 Apr, 2015 Back pain M54.9 [facility] [address] 7501 Apr, Low back pain M54.5 ; Lumbar sprain and strain 847.2 ; Constipation K59.00 and Kidney stone N20.0 [facility] [id number] [place] [address] 13858- 3883 Mar, [facility] [id number] [place] [address] 11192- 7120 Feb, Diabetes type 1, controlled E10.9 and Depression F32.9 [facility] [id number] [place] [address] 67836- 1109 Feb, Depressive disorder, not elsewhere classified F32.9 [facility] [id number] [place] [address] 60949- 0809 Feb, [facility] [id number] [place] [address] 58926- 4385 Feb, [facility] [id number] [place] [address] 43617- 2278 Jan, [facility] [id number] [place] [address] 24769- 1411 Jan, [facility] [id number] [place] [address] 12363- 1811 Jan, [facility] [id number] [place] [address] 22237- 2296 Jan, [facility] [id number] [place] [address] 22439- 9233 Jan, [facility] [id number] [place] [address] 44670- 7902 Dec, [facility] [id number] [place] [address] 70707- 4019 Dec, [facility] [id number] [place] [address] 65014- 5656 Dec, [facility] [id number] [place] [address] 32073- 7019 Dec, [facility] [address] [facility] [id number] [place] [address]- 2218 Dec, [facility] [address] [facility] [id number] [place] [address]- 2446 Nov, [facility] [address] [place] [address]- 2774 Nov, Type I diabetes mellitus 250.01 [facility] [id number] [place] [address] 48752- 2847 Nov, Type I diabetes mellitus 250.01 [facility] [id number] [place] [address] 19695- 0396 Nov, Type I diabetes mellitus 250.01 and Fatigue 780.79 [facility] [address] [address]- 9873 Nov, [facility] [address] [address]- 8381 Aug, [facility] [address] [place] [address]- 1918 Aug, [facility] [address] [address]- 1451 Jul, [facility] [address] [place] [address]- 5974 Jul, [facility] [address] [address]- 9896 Jul, [facility] [id number] [place] [address]- 6187 Jul, [facility] [address] [place] [address]- 5016 Jul, [facility] [id number] [address]- 7601 Jun, [facility] [address] [address]- 1336 Jun, [facility] [address] [id number] [place] [address]- 6373 Jun, [facility] [place] [facility] [address] [id number] [place] [address]- 9594 Jun, [facility] [place] [facility] [address] [id number] [place] [address]- 1216 Jun, [facility] [place] [facility] [address] [id number] [place] [address]- 0069 Jun, [facility] [place] [facility] [address] [id number] [place] [address]- 4002 May, [facility] [place] [facility] [address] [id number] [place] [address]- 3718 May, [facility] [address] [id number] [place] [address]- 9109 May, [facility] [place] [facility] [address] [id number] [place] [address]- 3301 May, [facility] [place] [facility] [address] [id number] [place] [address]- 6599 May, [facility] [place] [facility] [address] [facility] [id number] [place] [address]- 2930 May, [facility] [place] [facility] [address] [id number] [place] [address]- 9585 May, [facility] [place] [facility] [address] [id number] [address]- 5348 May, [facility] [place] [facility] [address] [id number] [place] [address]- 1692 Apr, [facility] [place] [facility] [address] [id number] [place] [address]- 6692 Apr, [facility] [place] [facility] [address] [id number] [address]- 1229 Apr, [facility] [place] [facility] [address] [id number] [place] [address]- 6022 Apr, [facility] [place] [facility] [address] [id number] [place] [address]- 3639 Apr, [facility] [place] [facility] [address] [id number] [place] [address]- 1241 Apr, [facility] [place] [facility] [address] [id number] [place] [address]- 3210 Apr, [facility] [place] [facility] [address] [id number] [place] [address]- 5110 Apr, [facility] [place] [facility] [address] [id number] [place] [address]- 2106 Apr, [facility] [place] [facility] [address] [id number] [place] [address]- 7437 Mar, [facility] [place] [facility] [address] [id number] [place] [address]- 0678 Mar, [facility] [place] [facility] [address] [id number] [place] [address]- 2039 Mar, [facility] [place] [facility] [address] [id number] [place] [address]- 9642 Mar, [facility] [place] [facility] [address] [id number] [place] [address]- 7967 Mar, [facility] [place] [facility] [address] [id number] [place] [address]- 4800 Mar, [facility] [place] [facility] [address] [id number] [place] [address]- 1846 Mar, [facility] [place] [facility] [address] [id number] [place] [address]- 6179 Mar, [facility] [place] [facility] [address] [id number] [place] [address]- 7853 Mar, [facility] [place] [facility] [address] [id number] [place] [address]- 0083 Mar, [facility] [place] [facility] [address] [id number] [place] [address]- 6281 Mar, [facility] [place] [facility] [address] [id number] [place] 1558 Mar, [facility] [place] [facility] [address] [id number] [place] [address]- 1934 Mar, [facility] [place] [facility] [address] [id number] [place] [address]- 1717 Feb, [facility] [place] [facility] [address] [id number] [place] [address]- 4015 Feb, [facility] [place] [facility] [address] [id number] [place] [address]- 7764 Feb, [facility] [place] [facility] [address] [id number] [place] [address]- 3471 Feb, [facility] [place] [facility] [address] [id number] [place] [address]- 8843 Jan, [facility] [place] [facility] [address] [id number] [place] [address]- 0193 Jan, [facility] [place] [facility] [address] [id number] [place] [address]- 2965 Dec, [facility] [place] [facility] [address] [id number] [place] [address]- 7543 Dec, [facility] [place] [facility] [address] [id number] [address]- 3199 Dec, [facility] [place] [facility] [address] [id number] [place] [address]- 7681 Dec, [facility] [place] [facility] [address] [id number] [place] [address]- 5041 Dec, [facility] [place] [facility] [address] [id number] [place] [address]- 2568 Nov, [facility] [place] [facility] [address] [id number] [place] [address]- 8264 Nov, [facility] [place] [facility] [address] [id number] [place] [address]- 8371 Nov, [facility] [place] [facility] [address] [id number] [place] [address]- 0696 Nov, 2013 [facility] [place] [facility] [address] [id number] [place] [address]- 4475 Nov, 2013 [facility] [place] [facility] [address] [id number] [place] [address]- 0839 Nov, [facility] [place] [facility] [address] [id number] [place] [address]- 6737 Nov, [facility] [place] [facility] [address] [id number] [place] [address]- 0287 Nov, [facility] [place] [facility] [address] [id number] [place] [address]- 0792 Nov, [facility] [place] [facility] [address] [id number] [place] [address]- 9404 Nov, [facility] [place] [facility] [address] [id number] [place] [address]- 9581 Jun, [facility] [place] [facility] [address] [id number] [place] [address]- 7291 Jun, [facility] [place] [facility] [address] [id number] [place] [address]- 8846 Jun, [facility] [place] [facility] [address] [id number] [place] [address]- 9031 Jun, [facility] [place] [facility] [address] [id number] [place] 8396 Jun, [facility] [place] [facility] [address] [id number] [place] 4009 Jun, [facility] [place] [facility] [address] [id number] [place] [address]- 4943 Mar, [facility] [address] [id number] [place] [address]- 6928 Mar, [facility] [place] [facility] [address] [id number] [place] [address]- 2604 Mar, [facility] [place] [facility] [address] [id number] [place] [address] Mar, [facility] [place] [facility] [address] [id number] [place] [address] Feb, [facility] [place] [facility] [address] [id number] [place] [address] Feb, [facility] [place] [facility] [address] [id number] [place] [address] Jan, [facility] [place] [facility] [address] [id number] [place] [address] Oct, [facility] [place] [facility] [address] [id number] [place] [address] September, [facility] [place] [facility] [address] [id number] [place] [address] September, [facility] [place] [facility] [address] [id number] [place] [address] September, [facility] [place] [facility] [address] [id number] [address] September, [facility] [place] [facility] [address] [id number] [address] September, [facility] [place] [facility] [address] [id number] [place] [address] Aug, [facility] [place] [facility] [address] [id number], [place] [address] Jul, [facility] [place] [facility] [address] [id number] [place] [address] Jul, [facility] [place] [facility] [address] [id number] [place] [address]- [address] 15 Jul, 2012 [facility] [place] [facility] [address] [id number] [place] [address]- [address] 08 Jul, 2012 [facility] [place] [facility] [address] [id number] [place] [address] 24 May, 2012 [facility] [place] [facility] [address] [id number] [place] [address] 15 May, 2012 [facility] [place] [facility] [address] [id number] [place] [address] 18 Apr, 2012 [facility] [place] [facility] [address] [id number] [place] [address]- [address] 18 Apr, 2012 [facility] [place] [facility] [address] [id number] [place] [address]- [address] 17 Apr, 2012 [facility] [place] [facility] [address] [facility] [id number] [place] [address]- [address] 17 Apr, 2012 [facility] [place] [facility] [address] [id number] [place] [address]- [address] 30 Mar, 2012 [facility] [place] [facility] [address] [id number] [place] [address]- [address] 30 Mar, 2012 [facility] [place] [facility] [address] [facility] [id number] [place] [address] Mar, [facility] [place] [facility] [address] [id number] [place] [address] Mar, [facility] [place] [facility] [address] [id number] [place] [address] Mar, [facility] [place] [facility] [address] [id number] [place] [address] Mar, [facility] [place] [facility] [address] [facility] [id number] [place] [address] Feb, [facility] [place] [facility] [address] [facility] [id number] [place] [address] Feb, [facility] [place] [facility] [address] [id number] [place] [address] 27 Jan, 2012 [facility] [place] [facility] [address] [id number] [place] [address] 27 Jan, 2012 [facility] [place] [facility] [address] [id number] [place] [address]- [address] 19 Jan, 2012 [facility] [place] [facility] [address] [id number] [place] [address], [place] [address]- [address] 30 Dec, 2011 [facility] [address] [id number] [place] [address]- [address] 15 Dec, 2011 [facility] [place] [facility] [address] [id number] [place] [address]- [address] 05 Jul, 2011 [facility] [address] [id number] [place] [address] 29 Apr, 2011 [facility] [address] [id number] [place] [address]- [address] 23 Apr, 2011 [facility] [place] [facility] [address] [id number] [place] [address]- [address] 16 Apr, 2011 [facility] [address] [id number] [place] [address]- [address] 06 Apr, 2011 [facility] [place] [facility] [address] [id number] [place] [address] 17 Mar, 2011 [facility] [place] [facility] [address] [id number] [place] [address]- [address] 14 Mar, 2011 [facility] [place] [facility] [address] [id number] [place] [address]- [address] 11 Mar, 2011 [facility] [place] [facility] [address] [id number] [place] [place] [address] 10 Mar, 2011 [facility] [place] [facility] [address] [id number] [place] [address] 10 Mar, 2011 [facility] [place] [facility] [address] [id number] [address] 15 Jan, 2011 [facility] [address] [facility] [id number] [address] 15 Nov, 2010 [facility] [address] [facility] [id number], [place] [address] 30 Apr, 2010 [facility] [address] [facility] [id number] [address] Apr, [facility] [address] [facility] [id number][place] [address] Apr, [facility] [address] [facility] [id number] [address] Apr, [facility] [address] [facility] [id number][place] [address] Mar, [facility] [id number] [address] Mar, [facility] [address] [id number] [address] 14 Feb, 2010 [facility] [address] [id number] [address] 11 Feb, 2010 [facility] [address] [id number] [address] 10 Feb, 2010 IMMUNIZATIONS No Known Immunizations SOCIAL HISTORY Never Assessed REASON FOR VISIT upload PLAN OF CARE VITAL SIGNS MEDICATIONS Unknown Medications RESULTS No Results PROCEDURES No Known procedures INSTRUCTIONS MEDICATIONS ADMINISTERED No Known Medications MEDICAL (GENERAL) HISTORY Type Description Date Medical History diabetes mellitus Medical History epilepsy Medical History hypertension Medical History hypothyroid Medical History hyperlipidemia Surgical History disc surgery 2015 Surgical History disc surgery low back 1996, 1981 Surgical History right foot toe surgery 2006, 1982 Surgical History double hernia 2002 Hospitalization History surgeries
--- OUTSIDE RECORDS SUMMARY | 2017-11-01 09:05 | XMS REPORT ---
Author Author NA Whitley Organization [facility] Address [address] [place] [address] Care Team Providers Care Consumer Advocate Name Role Phone NA Whitley Unavailable PROBLEMS Type Condition ICD9-CM Code [id number] Code Onset Dates Condition Status SNOMED Code Problem Seizure disorder G40.909 Active 469225596 Problem Essential hypertension I10 Active 70367726 Problem Type 1 diabetes mellitus without complications E10.9 Active 152199340 Problem Depressive disorder, not elsewhere classified F32.9 Active 81383948 Problem Type 1 diabetes mellitus with diabetic polyneuropathy E10.42 Active 31885357 Problem Mild episode of recurrent major depressive disorder F33.0 Active 476278418 Problem Hypercholesterolemia E78.00 Active 32679281 Problem Acquired hypothyroidism E03.9 Active 528439724 Problem Memory loss of unknown cause R41.3 Active 86039319 Problem History of epilepsy Z86.69 Active 446057150 ALLERGIES No Information ENCOUNTERS Encounter Location Date Diagnosis [facility] [id number] [place] [address] 39907- 1554 Jul, Type 1 diabetes mellitus with diabetic polyneuropathy E10.42 [facility] [id number] [place] [address] 66468- 3008 Jun, [facility] [id number] [place] [address] 26811- 9351 Jun, Essential hypertension I10 ; Type 1 diabetes mellitus with diabetic polyneuropathy E10.42 and Mild episode of recurrent major depressive disorder F33.0 [facility] [id number] [place] [address] 97639- 5928 Mar, [facility] [id number] [place] [address] 46971- 7333 Mar, Type 1 diabetes mellitus without complications E10.9 ; Essential hypertension I10 ; Seizure disorder G40.909 ; Depressive disorder, not elsewhere classified F32.9 ; Acquired hypothyroidism E03.9 and Hypercholesterolemia E78.00 [facility] [id number] [place] [address] 59279- 5046 Feb, [facility] [id number] [place] [address] 96548- 4956 Feb, Hypercholesterolemia E78.00 [facility] [id number] [place] [address] 65995 2546 Feb, Type 1 diabetes mellitus without complications E10.9 [facility] [id number] [place] [address] 78909- 8936 Feb, [facility] [id number] [place] [address] 14186- 2445 Feb, Type 1 diabetes mellitus without complications E10.9 ; Seizure disorder G40.909 ; Acquired hypothyroidism E03.9 ; Essential hypertension I10 ; Depressive disorder, not elsewhere classified F32.9 and Muscle spasm M62.838 [facility] [id number] [place] [address] 45221- 0523 Jan, Type 1 diabetes mellitus without complications E10.9 [facility] [id number] [place] [address] 42465- 5774 Jan, Type 1 diabetes mellitus without complications E10.9 [facility] [id number] [place] [address] 66997- 5566 Jan, [facility] [id number] [place] [address] 87533- 6775 Nov, [facility] [id number] [place] [address] 33301- 6326 Oct, [facility] [id number] [place] [address] 87694- 9526 Oct, [facility] [id number] [place] [address] 23213- 1888 Oct, Sebaceous cyst L72.3 [facility] [address] [address] 0116 September, [facility] [id number] [place] [address] 21219- 0544 September, [facility] [id number] [place] [address] 69966- 7756 September, Type 1 diabetes mellitus without complications E10.9 [facility] [id number] [place] [address] 64117- 3736 September, [facility] [id number] [place] [address] 22392- 4916 September, [facility] [id number] [place] [address] 52926- 8524 Aug, [facility] [id number] [place] [address] 74350- 9814 Aug, [facility] [id number] [place] [address] 16659- 6354 Aug, Memory loss of unknown cause R41.3 and History of epilepsy Z86.69 [facility] [address] [address]- 5969 Aug, Type 1 diabetes mellitus without complications E10.9 [facility] [address] [address]- 7890 Aug, [facility] [id number] [place] [address] 41393- 5216 Jul, Seizure disorder G40.909 ; Depressive disorder, not elsewhere classified F32.9 ; Type 1 diabetes mellitus without complications E10.9 ; Acquired hypothyroidism E03.9 ; Hypercholesterolemia E78.00 and Essential hypertension I10 [facility] [address] [address]- 8086 Jul, Type 1 diabetes mellitus without complications E10.9 [facility] [id number] [address]- 2086 Jul, [facility] [id number] [place] [address] 54447- 7498 Jun, [facility] [id number] [place] [address] 25664- 2664 Jun, Type 1 diabetes mellitus without complications E10.9 and Screening cholesterol level Z13.220 [facility] [id number] [place] [address] 07171- 3964 Jun, Type 1 diabetes mellitus without complications E10.9 ; Screening cholesterol level Z13.220 and Seizure disorder G40.909 [facility] [id number] [place] [address] 45810- 8882 May, Type 1 diabetes mellitus without complications E10.9 [facility] [id number] [place] [address] 16550- 0512 May, Type 1 diabetes mellitus without complications E10.9 [facility] [id number] [place] [address] 83853- 2027 May, Type 1 diabetes mellitus without complications E10.9 [facility] [id number] [place] [address] 88605- 1119 May, Type 1 diabetes mellitus without complications E10.9 [facility] [id number] [place] [address] 37802- 3969 Apr, Type 1 diabetes mellitus without complications E10.9 [facility] [address] [address]- 3214 Mar, [facility] [id number] [place] [address] 04651- 9489 Feb, [facility] [id number] [place] [address] 18343- 4532 Feb, Diabetes type 1, controlled E10.9 ; Neck pain M54.2 and Seizure disorder G40.909 [facility] [id number] [place] [address] 43287- 3301 Nov, Sebaceous cyst L72.3 and Lipoma of back D17.1 [facility] [address] 27170- 7139 Nov, Sebaceous cyst L72.3 and Lipoma of back D17.1 [facility] [id number] [place] [address] 93522- 0423 September, [facility] [id number] [place] [address] 88151- 7245 September, Paronychia of fourth toe of right foot L03.031 and Ingrown nail of fourth toe of right foot L60.0 [facility] [id number] [place] [address] 35269- 0780 September, [facility] [id number] [place] [address] 78113- 3883 Aug, Nicotine dependence F17.200 [facility] [id number] [place] [address] 19800- 5274 Aug, [facility] [id number] [place] [address] 07775- 4237 Aug, [facility] [id number] [place] [address] 35784 -6965 Jul, Hyperglycemia due to type 1 diabetes mellitus E10.65 [facility] [id number] [place] [address] 01249- 1012 Jul, [facility] [id number] [place] [address] 18165- 9206 Jul, [facility] [id number] [place] [address] 97237- 7323 Jul, [facility] [id number] [place] [address] 26586- 2187 Jul, [facility] [id number] [place] [address] 53614- 0391 Jun, [facility] [address] [facility] [id number] [place] [address]- 0035 Jun, [facility] [address] [facility] [id number] [place] [address] 89788- 2959 Jun, [facility] [address] [facility] [id number] [place] [address], [place] [address]- 4276 Jun, [facility] [address] [facility] [id number] [place] [address], [place] [address]- 9288 Jun, [facility] [address] [facility] [id number] [place] [address] 87073- 7540 May, Back pain M54.9 [facility] [id number] [place] [address] 01524- 4115 May, [facility] [id number] [place] [address] 45570- 9882 May, [facility] [id number] [address]- 4230 May, [facility] [id number] [place] [address] 34678- 5571 Apr, [facility] [address] [address]- 1446 Apr, [facility] [id number] [place] [address] 68509- 3229 Apr, Lumbar disc disease M51.9 [facility] [address] [facility] [id number] [place] [address]- 1526 Apr, [facility] [address] [facility] [id number] [place] [address], [place] [address]- 3095 Apr, [facility] [address] [facility] [id number] [address]- 5402 Apr, Back pain M54.9 [facility] [id number] [place] [address] 22768- 6079 Apr, Low back pain M54.5 ; Lumbar sprain and strain 847.2 ; Constipation K59.00 and Kidney stone N20.0 [facility] [id number] [place] [address] 24252- 4810 Mar, [facility] [id number] [place] [address] 01071- 5250 Feb, Diabetes type 1, controlled E10.9 and Depression F32.9 [facility] [id number] [place] [address] 23757- 8732 Feb, Depressive disorder, not elsewhere classified F32.9 [facility] [id number] [place] [address] 84506- 2065 Feb, [facility] [id number] [place] [address] 35020- 4635 Feb, [facility] [id number] [place] [address] 74453- 4399 Jan, [facility] [id number] [place] [address] 58532- 3183 Jan, [facility] [id number] [place] [address] 55863- 0479 Jan, [facility] [id number] [place] [address] 30867- 1293 Jan, [facility] [id number] [place] [address] 71603- 8456 Jan, [facility] [id number] [place] [address] 95844- 1352 Dec, [facility] [id number] [place] [address] 47439- 6010 Dec, [facility] [id number] [place] [address] 81605- 3076 Dec, [facility] [address] [place] [address]- 7576 Dec, [facility] [id number] [place] [address]- 5446 Dec, [facility] [id number] [place] [address]- 1906 Nov, [facility] [id number] [place] [address]- 0046 Nov, Type I diabetes mellitus 250.01 [facility] [id number] [place] [address]- 5566 Nov, Type I diabetes mellitus 250.01 [facility] [id number] [place] [address]- 4336 Nov, Type I diabetes mellitus 250.01 and Fatigue 780.79 [facility] [id number] [place] [address]- 0716 Nov, [facility] [id number] [place] [address]- 9131 Aug, [facility] [id number] [place] [address]- 5041 Aug, [facility] [id number] [place] [address]- 7976 Jul, [facility] [id number] [place] [address]- 8546 Jul, [facility] [id number] [place] [address]- 2546 Jul, [facility] [id number] [place] [address]- 2546 Jul, [facility] [id number] [place] [address]- 2546 Jul, [facility] [id number] [place] [address]- 2546 Jun, [facility] [place] [facility] [address] [id number] [place] [address]- 4755 Jun, [facility] [place] [facility] [address] [id number] [place] [address]- 8541 Jun, [facility] [place] [facility] [address] [id number] [place] [address]- 1496 Jun, [facility] [place] [facility] [address] [id number] [place] [address]- 3056 Jun, [facility] [place] [facility] [address] [id number] [place] [address]- 9741 Jun, [facility] [place] [facility] [address] [id number] [place] [address]- 9829 May, [facility] [place] [facility] [address] [id number] [place] [address]- 4213 May, [facility] [place] [facility] [address] [id number] [place] [address]- 4165 May, [facility] [place] [facility] [address] [id number] [place] [address]- 1401 May, [facility] [place] [facility] [address] [id number] [place] [address]- 1747 May, [facility] [place] [facility] [address] [id number] [place] [address]- 7713 May, [facility] [place] [facility] [address] [id number] [place] [address]- 9835 May, [facility] [place] [facility] [address] [id number] [place] [address]- 7010 May, [facility] [place] [facility] [address] [id number] [place] [address]- 1894 Apr, [facility] [place] [facility] [address] [id number] [place] [address]- 0645 Apr, [facility] [place] [facility] [address] [id number] [place] [address]- 6041 Apr, [facility] [place] [facility] [address] [id number] [place] [address]- 3502 Apr, [facility] [place] [facility] [address] [id number] [place] [address]- 6702 Apr, [facility] [place] [facility] [address] [id number] [place] [address]- 9724 Apr, [facility] [place] [facility] [address] [id number] [place] [address]- 2147 Apr, [facility] [place] [facility] [address] [id number] [place] [address]- 7907 Apr, [facility] [place] [facility] [address] [id number] [place] [address]- 5367 Apr, [facility] [place] [facility] [address] [id number] [place] [address]- 6920 Mar, [facility] [place] [facility] [address] [id number] [place] [address]- 6253 Mar, [facility] [place] [facility] [address] [id number] [place] [address]- 2759 Mar, [facility] [place] [facility] [address] [id number] [place] [address]- 3059 Mar, [facility] [place] [facility] [address] [id number] [address]- 5661 Mar, [facility] [place] [facility] [address] [id number] [address]- 8537 Mar, [facility] [place] [facility] [address] [id number] [place] [address]- 6062 Mar, [facility] [place] [facility] [address] [id number] [place] [address]- 0918 Mar, [facility] [place] [facility] [address] [id number] [address]- 5137 Mar, [facility] [place] [facility] [address] [id number] [place] [address]- 6208 Mar, [facility] [place] [facility] [address] [id number] [place] [address]- 2308 Mar, [facility] [place] [facility] [address] [id number] [place] [address]- 4720 Mar, [facility] [place] [facility] [address] [id number] [place] [address]- 4852 Mar, [facility] [place] [facility] [address] [id number] [place] [address]- 9780 Feb, [facility] [place] [facility] [address] [id number] [place] [address]- 1117 Feb, [facility] [place] [facility] [address] [id number] [place] [address]- 6745 Feb, [facility] [place] [facility] [address] [id number] [place] [address]- 0602 Feb, [facility] [place] [facility] [address] [id number] [place] [address]- 2006 Jan, [facility] [place] [facility] [address] [id number] [place] [address]- 9039 Jan, [facility] [place] [facility] [address] [id number] [place] [address]- 1812 Dec, [facility] [place] [facility] [address] [id number] [place] [address]- 2905 Dec, [facility] [place] [facility] [address] [id number] [place] [address]- 6598 Dec, [facility] [place] [facility] [address] [id number] [place] [address]- 1826 Dec, [facility] [place] [facility] [address] [id number] [place] [address]- 7571 Dec, [facility] [place] [facility] [address] [id number] [place] [address]- 3406 Nov, [facility] [place] [facility] [address] [id number] [place] [address]- 7363 Nov, [facility] [place] [facility] [address] [id number] [place] [address]- 9718 Nov, [facility] [place] [facility] [address] [id number] [place] [address]- 8548 Nov, [facility] [place] [facility] [address] [id number] [place] [address]- 5118 Nov, [facility] [place] [facility] [address] [id number] [place] [address]- 6275 Nov, [facility] [place] [facility] [address] [id number] [place] [address]- 5792 Nov, [facility] [place] [facility] [address] [id number] [place] [address]- 1670 Nov, [facility] [place] [facility] [address] [id number] [place] [address]- 8533 Nov, [facility] [place] [facility] [address] [id number] [place] [address]- 7723 Nov, [facility] [place] [facility] [address] [id number] [place] [address]- 8290 Jun, [facility] [place] [facility] [address] [id number] [place] [address]- 8877 Jun, [facility] [place] [facility] [address] [id number] [place] [address]- 1556 Jun, [facility] [place] [facility] [address] [id number] [place] [address]- 2217 Jun, [facility] [place] [facility] [address] [id number] [place] [address]- 7141 Jun, [facility] [place] [facility] [address] [id number] [place] [address]- 3608 Jun, [facility] [place] [facility] [address] [id number] [place] [address]- 7060 Mar, [facility] [address] [id number] [place] [address]- 8206 Mar, [facility] [place] [facility] [address] [id number] [place] [address]- 7163 Mar, [facility] [address] [id number] [place] [address]- 8936 Mar, [facility] [place] [facility] [address] [id number] [place] [address]- 7137 Feb, [facility] [address] [id number] [place] [address]- 2434 Feb, [facility] [place] [facility] [address] [id number] [place] [address]- 7462 Jan, [facility] [address] [id number] [place] [address]- 9694 Oct, [facility] [place] [facility] [address] [id number] [place] [address]- 3191 September, [facility] [place] [facility] [address] [id number] [place] [address]- 3882 September, [facility] [place] [facility] [address] [facility] [id number] [place] [address]- 3008 September, [facility] [place] [facility] [address] [id number] [place] [address]- 4960 September, [facility] [place] [facility] [address] [id number] [place] [address] 2542 September, [facility] [place] [facility] [address] [id number] [place] [address] Aug, [facility] [place] [facility] [address] [id number] [place] [address] Jul, [facility] [place] [facility] [address] [id number] [place] [address] Jul, [facility] [place] [facility] [address] [id number] [place] [address] 15 Jul, 2012 [facility] [place] [facility] [address] [id number] [place] [address] 08 Jul, 2012 [facility] [place] [facility] [address] [id number] [place] [address] May, [facility] [place] [facility] [address] [id number] [place] [address], [place] [address] May, [facility] [place] [facility] [address] [id number] [place] [address] Apr, [facility] [place] [facility] [address] [id number] [place] [address] Apr, [facility] [place] [facility] [address] [id number] [place] [address] Apr, [facility] [place] [facility] [address] [id number] [place] [address] Apr, [facility] [place] [facility] [address] [id number] [place] [address] Mar, [facility] [place] [facility] [address] [id number] [place] [address] 30 Mar, 2012 [facility] [place] [facility] [address] [id number] [place] [address] Mar, [facility] [place] [facility] [address] [id number] [place] [address] Mar, [facility] [place] [facility] [address] [id number] [place] [address] Mar, [facility] [place] [facility] [address] [id number] [place] [address] 29 Mar, 2012 [facility] [place] [facility] [address] [id number] [place] [address] 12 Feb, 2012 [facility] [place] [facility] [address] [id number] [place] [address] 12 Feb, 2012 [facility] [place] [facility] [address] [id number] [place] [address]- [address] 27 Jan, 2012 [facility] [place] [facility] [address] [id number] [place] [address] 27 Jan, 2012 [facility] [place] [facility] [address] [id number] [place] [address] 19 Jan, 2012 [facility] [place] [facility] [address] [id number] [place] [address] 30 Dec, 2011 [facility] [place] [facility] [address] [id number] [place] [address] 15 Dec, 2011 [facility] [place] [facility] [address] [id number] [place] [address] 76[address] 05 Jul, 2011 [facility] [place] [facility] [address] [id number] [place] [address] 89[address] 29 Apr, 2011 [facility] [place] [facility] [address] [id number] [place] [address] 23 Apr, 2011 [facility] [place] [facility] [address] [id number] [place] [address] 16 Apr, 2011 [facility] [place] [facility] [address] [id number] [place] [address] 06 Apr, 2011 [facility] [place] [facility] [address] [id number] [place] [address] 17 Mar, 2011 [facility] [place] [facility] [address] [id number] [place] [address] 14 Mar, 2011 [facility] [place] [facility] [address] [id number] [place] [address]- [address] 11 Mar, 2011 [facility] [place] [facility] [address] [id number] [place] [address] 10 Mar, 2011 [facility] [place] [facility] [address] [id number] [place] [address] 97[address] 10 Mar, 2011 [facility] [place] [facility] [address] [facility] [id number] [address] 15 Jan, 2011 [facility] [address] [facility] [id number], [place] [address] 15 Nov, 2010 [facility] [address] [facility] [id number] [address] 30 Apr, 2010 [facility] [id number] [address] Apr, [facility] [address] [facility] [id number] [address] Apr, [facility] [id number] [address] Apr, [facility] [address] [id number] [address] Mar, [facility] [id number] [address] Mar, [facility] [id number] [address] 14 Feb, 2010 [facility] [id number] [address] 11 Feb, 2010 [facility] [id number] [address] 10 Feb, 2010 IMMUNIZATIONS No Known Immunizations [...]
--- OUTSIDE RECORDS SUMMARY | 2017-11-01 09:06 | XMS REPORT ---
Author Author KATHERINE HILTON [facility] eClinicalWorks Address Unknown Phone Unavailable Care Team Providers Care Field Human Resources Manager Name Role Phone KATHERINE HILTON CP Unavailable Allergies No Known Allergies Problems Problem Type Condition Code Onset Dates Condition Status Problem Depressive disorder, not elsewhere classified F32.9 Active Problem Diabetes type 1, controlled E10.9 Active Problem Seizure disorder G40.909 Active Medications No Known Medications Results No Known Results Summary Purpose eClinicalWorks Submission
--- OUTSIDE RECORDS SUMMARY | 2017-11-01 09:06 | XMS REPORT ---
Author Author KATHERINE HILTON [facility] eClinicalWorks Address Unknown Phone Unavailable Care Team Providers Care Anesthesia Director Name Role Phone KATHERINE HILTON CP [...]
--- OUTSIDE RECORDS SUMMARY | 2017-11-01 09:06 | XMS REPORT ---
Author Author NA MORALES Organization [facility] Address [address] [place] [address] Care Team Providers Care Senior Product Integrity Engineer Name Role Phone NA MORALES Unavailable PROBLEMS Type Condition ICD9-CM Code VPD04-GP Code Onset Dates Condition Status SNOMED Code Problem Seizure disorder G40.909 Active 133906121 Problem Depressive disorder, not elsewhere classified F32.9 Active 34869492 Problem History of epilepsy Z86.69 Active 708692277 Problem Memory loss of unknown cause R41.3 Active 91423741 Problem Essential hypertension I10 Active 74353400 Problem Type 1 diabetes mellitus without complications E10.9 Active 008040388 Problem Hypercholesterolemia E78.00 Active 91577504 Problem Acquired hypothyroidism E03.9 Active 437935587 ALLERGIES No Known Allergies SOCIAL HISTORY Never Assessed PLAN OF CARE Activity Details Follow Up 1 month Reason:DM follow up VITAL SIGNS Height 68 in 2016-07-23 Weight 168.3 lbs 2016-07-23 Temperature 98.1 degrees Fahrenheit 2016-07-23 Heart Rate 76 bpm 2016-07-23 Respiratory Rate 18 2016-07-23 BMI 25.59 kg/m2 2016-07-23 Blood pressure systolic 147 mmHg 2016-07-23 Blood pressure diastolic 70 mmHg 2016-07-23 MEDICATIONS Medication Instructions Dosage Frequency Start Date End Date Duration Status Quinapril HCl 20 MG TAKE ONE TABLET BY MOUTH DAILY Active Lamotrigine 200 MG TAKE ONE TABLET BY MOUTH ONCE DAILY IN THE MORNING AND ONE AND ONE-HALF TABS IN THE EVENING Active Atorvastatin Calcium 40 MG TAKE ONE TABLET BY MOUTH ONCE DAILY Active Rico Contour Test Test Strips In Vitro 8-10 times per day as directed May, Active NovoLog 100 UNIT/ML as directed per pump- 2 vials monthly Jul, Active Hydrochlorothiazide 25 MG TAKE ONE TABLET BY MOUTH DAILY Active RESULTS No Results PROCEDURES No [...]
--- OUTSIDE RECORDS SUMMARY | 2017-11-01 09:06 | XMS REPORT ---
Author Author KATHERINE HILTON [facility] eClinicalWorks Address Unknown Phone Unavailable Care Team Providers Care Director Stars Name Role Phone KATHERINE HILTON CP Unavailable [...]
--- OUTSIDE RECORDS SUMMARY | 2017-11-01 09:06 | XMS REPORT ---
Author Author BAILEE TIRADO Organization [facility] Address [address] [place] [address] Care Team Providers Care Membership Sales Representative Name Role Phone SABINAWINNIEBAILEE Palafox Unavailable PROBLEMS Type Condition ICD9-CM Code YOT80-ZR Code Onset Dates Condition Status SNOMED Code Problem Seizure disorder G40.909 Active 651401637 Problem Essential hypertension I10 Active 08424593 Problem Type 1 diabetes mellitus without complications E10.9 Active 361966248 Problem Depressive disorder, not elsewhere classified F32.9 Active 72235535 Problem Type 1 diabetes mellitus with diabetic polyneuropathy E10.42 Active 18823853 Problem Mild episode of recurrent major depressive disorder F33.0 Active 948095599 Problem Hypercholesterolemia E78.00 Active 10054721 Problem Acquired hypothyroidism E03.9 Active 733689503 Problem Memory loss of unknown cause R41.3 Active 40966321 Problem History of epilepsy Z86.69 Active [id number] ALLERGIES No Information ENCOUNTERS Encounter Location Date Diagnosis [facility] [id number] [place] [address] 93025- 7422 September, [facility] [address] 69985- 0796 Aug, Type 1 diabetes mellitus with diabetic polyneuropathy E10.42 [facility] [id number] [place] [address] 06213- 5019 Aug, [facility] [address] 03856- 9628 Jul, Type 1 diabetes mellitus with diabetic polyneuropathy E10.42 [facility] [id number] [place] [address] 32800- 5559 Jun, [facility] [address] 56525- 9891 Jun, Essential hypertension I10 ; Type 1 diabetes mellitus with diabetic polyneuropathy E10.42 and Mild episode of recurrent major depressive disorder F33.0 [facility] [address] [place] [address] 51917- 6715 Mar, [facility] [id number] [place] [address] 80967- 8748 Mar, Type 1 diabetes mellitus without complications E10.9 ; Essential hypertension I10 ; Seizure disorder G40.909 ; Depressive disorder, not elsewhere classified F32.9 ; Acquired hypothyroidism E03.9 and Hypercholesterolemia E78.00 [facility] [id number] [place] [address] 50430- 5737 Feb, [facility] [id number] [place] [address] 17961- 4884 Feb, Hypercholesterolemia E78.00 [facility] [id number] [place] [address] 50372- 9666 Feb, Type 1 diabetes mellitus without complications E10.9 [facility] [id number] [place] [address] 59600- 3462 Feb, [facility] [id number] [place] [address] 30042- 3854 Feb, Type 1 diabetes mellitus without complications E10.9 ; Seizure disorder G40.909 ; Acquired hypothyroidism E03.9 ; Essential hypertension I10 ; Depressive disorder, not elsewhere classified F32.9 and Muscle spasm M62.838 [facility] [address] [place] [address] 18403- 1130 Jan, Type 1 diabetes mellitus without complications E10.9 [facility] [id number] [place] [address] 83514- 1836 Jan, Type 1 diabetes mellitus without complications E10.9 [facility] [id number] [place] [address] 53102- 4961 Jan, [facility] [address] [place] [address] 1429 Nov, [facility] [address] [address]- 8850 Oct, [facility] [id number] [place] [address] 73741- 2855 Oct, [facility] [id number] [place] [address] 47283- 7050 Oct, Sebaceous cyst L72.3 [facility] [id number] [place] [address] 23164- 5862 September, [facility] [id number] [place] [address] 75991- 4758 September, [facility] [id number] [place] [address] 24386- 1053 September, Type 1 diabetes mellitus without complications E10.9 [facility] [id number] [place] [address] 40392- 4810 September, [facility] [address] [place] [address] 66717- 1814 September, [facility] [id number] [place] [address] 22296- 2899 Aug, [facility] [address] [address]- 9561 Aug, [facility] [id number] [place] [address] 85691- 9388 Aug, Memory loss of unknown cause R41.3 and History of epilepsy Z86.69 [facility] [id number] [place] [address] 27868- 0374 Aug, Type 1 diabetes mellitus without complications E10.9 [facility] [address] [address]- 1486 14 Aug, 2016 [facility] [id number] [place] [address] 41195- 7055 Jul, Seizure disorder G40.909 ; Depressive disorder, not elsewhere classified F32.9 ; Type 1 diabetes mellitus without complications E10.9 ; Acquired hypothyroidism E03.9 ; Hypercholesterolemia E78.00 and Essential hypertension I10 [facility] [id number] [place] [address] 89927- 2751 Jul, Type 1 diabetes mellitus without complications E10.9 [place] [address] 43112- 5070 Jul, [place] [facility] [address] 41605- 6946 Jun, [place] [facility] [address] 49521- 1600 Jun, Type 1 diabetes mellitus without complications E10.9 and Screening cholesterol level Z13.220 [place] [facility] [address] 11571- 1262 Jun, Type 1 diabetes mellitus without complications E10.9 ; Screening cholesterol level Z13.220 and Seizure disorder G40.909 [facility] [address] 41110- 0676 May, Type 1 diabetes mellitus without complications E10.9 [facility] [id number] [place] [address] 89569- 6952 May, Type 1 diabetes mellitus without complications E10.9 [facility] [id number] [place] [address] 64006- 9520 May, Type 1 diabetes mellitus without complications E10.9 [facility] [id number] [place] [address] 18799- 7963 May, Type 1 diabetes mellitus without complications E10.9 [facility] [id number] [place] [address] 26287- 3585 Apr, Type 1 diabetes mellitus without complications E10.9 [place] [facility] [address] 00553- 8050 Mar, [facility] [id number] [place] [address] 83705- 1749 Feb, [facility] [id number] [place] [address] 70200- 2206 Feb, Diabetes type 1, controlled E10.9 ; Neck pain M54.2 and Seizure disorder G40.909 [facility] [address] 63865- 1276 Nov, Sebaceous cyst L72.3 and Lipoma of back D17.1 [place] [address] 94149- 2779 Nov, Sebaceous cyst L72.3 and Lipoma of back D17.1 [facility] [id number] [place] [address] 04265- 2061 September, [facility] [id number] [place] [address] 93269- 1492 September, Paronychia of fourth toe of right foot L03.031 and Ingrown nail of fourth toe of right foot L60.0 [place] [id number] [place] [address] 82528- 5321 September, [facility] [id number] [place] [address] 71653- 4012 Aug, Nicotine dependence F17.200 [facility] [id number] [place] [address] 21363- 5366 Aug, [facility] [id number] [place] [address] 20877- 7211 Aug, [facility] [id number] [place] [address] 05481 -4184 Jul, Hyperglycemia due to type 1 diabetes mellitus E10.65 [facility] [id number] [place] [address] 64308- 0222 Jul, [facility] [address] [address]- 0554 Jul, [facility] [address] [id number] [place] [address]- 4255 Jul, [facility] [address] [facility] [id number] [place] [address]- 6916 Jul, [facility] [address] [facility] [id number] [place] [address]- 6218 Jun, [facility] [address] [facility] [id number] [place] [address]- 0941 Jun, [facility] [address] [facility] [id number] [place] [address]- 3748 Jun, [facility] [address] [facility] [id number] [place] [address]- 9690 Jun, [facility] [address] [address]- 1777 Jun, [facility] [id number] [address]- 3596 May, Back pain M54.9 [facility] [address] [address]- 0098 May, [facility] [address] [address]- 4275 May, [facility] [address] [address]- 6369 May, [facility] [address] [facility] [id number] [place] [address]- 1255 Apr, [facility] [address] [address]- 8979 Apr, [facility] [id number] [address]- 3738 Apr, Lumbar disc disease M51.9 [facility] [address] [address]- 7764 Apr, [facility] [id number] [place] [address] 03382- 0256 Apr, [facility] [id number] [place] [address] 03712- 9584 Apr, Back pain M54.9 [facility] [id number] [place] [address] 81832- 0076 Apr, Low back pain M54.5 ; Lumbar sprain and strain 847.2 ; Constipation K59.00 and Kidney stone N20.0 [facility] [id number] [place] [address] 11761- 2263 Mar, [facility] [id number] [place] [address] 24603- 3908 Feb, Diabetes type 1, controlled E10.9 and Depression F32.9 [facility] [id number] [place] [address] 13873- 0339 Feb, Depressive disorder, not elsewhere classified F32.9 [facility] [id number] [place] [address] 08430- 1970 Feb, [facility] [id number] [place] [address] 81765- 2180 Feb, [facility] [address] [place] [address] 63646- 7789 24 Jan, 2015 [facility] [address] [place] [address] 72999- 3660 22 Jan, 2014 [facility] [id number] [place] [address] 29187- 9597 14 Jan, 2015 [facility] [address] [place] [address] 39078- 7816 09 Jan, 2014 [facility] [address] [place] [address] 20669- 8738 09 Jan2014 [facility] [address] [facility] [id number] [place] [address]- 6509 Dec, [facility] [address] [facility] [id number] [place] [address]- 8487 Dec, [facility] [address] [facility] [id number] [place] [address]- 9312 Dec, [facility] [address] [facility] [id number] [place] [address]- 7855 Dec, [facility] [address] [facility] [id number] [place] [address]- 7192 Dec, [facility] [address] [place] [address], [place] [address]- 3538 Nov, [facility] [address] [address]- 8926 Nov, Type I diabetes mellitus 250.01 [facility] [address] [address]- 0706 Nov, Type I diabetes mellitus 250.01 [facility] [address] [address]- 1028 Nov, Type I diabetes mellitus 250.01 and Fatigue 780.79 [facility] [address] [address]- 1520 Nov, [facility] [address] [address]- 8936 Aug, [facility] [address] [facility] [id number] [place] [address]- 5103 Aug, [facility] [address] [address]- 0126 Jul, [facility] [address] [facility] [id number] [place] [address]- 2776 Jul, [facility] [id number] [address]- 4696 Jul, [facility] [place] [facility] [address] [id number] [place] [address]- 4032 Jul, [facility] [place] [facility] [address] [id number] [place] [address]- 6851 Jul, [facility] [place] [facility] [address] [id number] [place] [address]- 8219 Jun, [facility] [place] [facility] [address] [id number] [place] [address]- 0130 Jun, [facility] [place] [facility] [address] [id number] [place] [address]- 7768 Jun, [facility] [place] [facility] [address] [id number] [place] [address]- 7925 Jun, [facility] [place] [facility] [address] [id number] [place] [address]- 6528 Jun, [facility] [place] [facility] [address] [id number] [place] [address]- 1912 Jun, [facility] [place] [facility] [address] [id number] [place] [address]- 8692 May, [facility] [place] [facility] [address] [id number] [place] [address]- 6173 May, [facility] [place] [facility] [address] [id number] [place] [address]- 7661 May, [facility] [place] [facility] [address] [id number] [place] [address]- 9349 May, [facility] [place] [facility] [address] [id number] [place] [address]- 7359 May, [facility] [place] [facility] [address] [id number] [place] [address]- 7590 May, [facility] [place] [facility] [address] [id number] [place] [address]- 4796 May, [facility] [place] [facility] [address] [id number] [place] [address]- 6100 May, [facility] [address] [id number] [place] [address]- 1407 Apr, [facility] [place] [facility] [address] [id number] [place] [address]- 8496 Apr, [facility] [place] [facility] [address] [id number] [place] [address]- 3290 Apr, [facility] [place] [facility] [address] [id number] [place] [address]- 9467 Apr, [facility] [place] [facility] [address] [id number] [place] [address]- 6825 Apr, [facility] [place] [facility] [address] [id number] [place] [address]- 8717 Apr, [facility] [place] [facility] [address] [id number] [place] [address]- 6539 Apr, [facility] [place] [facility] [address] [id number] [place] [address]- 7816 Apr, [facility] [place] [facility] [address] [id number] [place] [address]- 1773 Apr, [facility] [place] [facility] [address] [id number] [place] [address]- 8063 Mar, [facility] [place] [facility] [address] [id number] [place] [address]- 7407 Mar, [facility] [place] [facility] [address] [id number] [place] [address]- 3801 Mar, [facility] [place] [facility] [address] [id number] [place] [address]- 0366 Mar, [facility] [place] [facility] [address] [id number] [place] [address]- 7584 Mar, [facility] [place] [facility] [address] [id number] [place] [address]- 1375 Mar, [facility] [place] [facility] [address] [id number] [place] [address]- 0954 Mar, [facility] [place] [facility] [address] [id number] [place] [address]- 2363 Mar, [facility] [place] [facility] [address] [id number] [place] 0659 Mar, [facility] [place] [facility] [address] [id number] [place] [address]- 4375 Mar, [facility] [place] [facility] [address] [id number] [place] [address]- 5866 Mar, [facility] [place] [facility] [address] [id number] [place] [address]- 7627 Mar, [facility] [place] [facility] [address] [id number] [place] [address]- 4505 Mar, [facility] [place] [facility] [address] [id number] [place] [address]- 0942 Feb, [facility] [place] [facility] [address] [id number] [place] [address]- 3031 Feb, [facility] [place] [facility] [address] [id number] [place] [address]- 7444 Feb, [facility] [place] [facility] [address] [id number] [place] [address]- 8691 Feb, [facility] [place] [facility] [address] [id number], [place] [address]- 0869 Jan, [facility] [place] [facility] [address] [id number] [place] [address]- 0198 Jan, [facility] [place] [facility] [address] [id number] [place] [address]- 2553 Dec, [facility] [place] [facility] [address] [id number], [place] [address]- 6444 Dec, [facility] [place] [facility] [address] [id number], [place] [address]- 5801 Dec, [facility] [place] [facility] [address] [id number] [place] [address]- 6893 Dec, [facility] [place] [facility] [address] [id number] [place] [address]- 8542 Dec, [facility] [place] [facility] [address] [id number] [place] [address]- 7454 Nov, [facility] [place] [facility] [address] [id number] [place] [address]- 8606 Nov, [facility] [place] [facility] [address] [id number] [place] [address]- 1893 Nov, [facility] [place] [facility] [address] [id number] [place] [address]- 0418 Nov, [facility] [place] [facility] [address] [id number] [place] [address]- 4184 Nov, [facility] [place] [facility] [address] [id number] [place] [address]- 1247 Nov, [facility] [place] [facility] [address] [id number] [place] [address]- 6180 Nov, [facility] [place] [facility] [address] [id number] [place] [address]- 3078 Nov, [facility] [place] [facility] [address] [id number] [place] [address]- 7097 Nov, [facility] [place] [facility] [address] [id number] [place] [address]- 6558 Nov, [facility] [place] [facility] [address] [id number] [place] [address]- 0121 Jun, [facility] [place] [facility] [address] [id number] [place] [address]- 3012 Jun, [facility] [place] [facility] [address] [id number] [place] [address]- 5735 Jun, [facility] [place] [facility] [address] [id number] [place] [address]- 2508 Jun, [facility] [place] [facility] [address] [id number] [place] [address]- 9774 Jun, [facility] [place] [facility] [address] [id number] [place] [address]- 4879 Jun, [facility] [place] [facility] [address] [id number] [place] [address]- 8445 Mar, [facility] [place] [facility] [address] [id number] [place] [address]- 9052 Mar, [facility] [place] [facility] [address] [id number] [place] [address]- 8105 Mar, [facility] [place] [facility] [address] [id number] [place] [address]- 8840 Mar, [facility] [address] [id number] [place] [address]- 4600 Feb, [facility] [place] [facility] [address] [id number] [place] [address]- 5848 Feb, [facility] [place] [facility] [address] [id number] [place] [address]- 0751 Jan, [facility] [place] [facility] [address] [id number] [place] [address]- 7782 Oct, [facility] [place] [facility] [address] [id number] [place] [address]- 8507 September, [facility] [place] [facility] [address] [id number] [place] [address]- 4952 September, [facility] [place] [facility] [address] [id number] [place] [address]- 2966 September, [facility] [place] [facility] [address] [id number] [place] [address]- 7930 September, [facility] [place] [facility] [address] [id number] [place] [address]- 2546 September, [facility] [place] [facility] [address] [id number] [place] [address]- 4717 15 Aug, 2012 [facility] [place] [facility] [address] [id number] [place] [address] 23 Jul, 2012 [facility] [place] [facility] [address] [id number] [place] [address] 19 Jul, 2012 [facility] [place] [facility] [address] [id number] [place] [address] 15 Jul, 2012 [facility] [place] [facility] [address] [id number] [place] [address] Jul, [facility] [place] [facility] [address] [id number] [place] [address] 24 May, 2012 [facility] [place] [facility] [address] [id number] [place] [address] May, [facility] [place] [facility] [address] [id number] [place] [address] 18 Apr, 2012 [facility] [place] [facility] [address] [id number] [place] [address] 18 Apr, 2012 [facility] [place] [facility] [address] [id number] [place] [address] Apr, [facility] [place] [facility] [address] [id number] [place] [address] Apr, [facility] [place] [facility] [address] [id number] [place] [address] 30 Mar, 2012 [facility] [place] [facility] [address] [id number] [place] [address] Mar, [facility] [place] [facility] [address] [id number] [place] [address] Mar, [facility] [place] [facility] [address] [id number] [place] [address] 29 Mar, 2012 [facility] [place] [facility] [address] [id number] [place] [address] 29 Mar, 2012 [facility] [address] [id number] [place] [address] 29 Mar, 2012 [facility] [place] [facility] [address] [id number] [place] [address] Feb, [facility] [address] [id number] [place] [address] Feb, [facility] [place] [facility] [address] [id number] [place] [address] 27 Jan, 2012 [facility] [address] [id number] [place] [address], [place] [address] 27 Jan, 2012 [facility] [place] [facility] [address] [id number] [place] [address] 19 Jan, 2012 [facility] [address] [id number] [place] [address] 30 Dec, 2011 [facility] [address] [id number] [place] [address] 15 Dec, 2011 [facility] [place] [facility] [address] [id number] [place] [address] 05 Jul, 2011 [facility] [address] [id number] [place] [address] 29 Apr, 2011 [facility] [place] [facility] [address] [id number] [place] [address] 23 Apr, 2011 [facility] [place] [facility] [address] [id number] [place] [address] 16 Apr, 2011 [facility] [place] [facility] [address] [id number] [place] [address] 06 Apr, 2011 [facility] [place] [facility] [address] [id number] [place] [address] 17 Mar, 2011 [facility] [place] [facility] [address] [id number] [place] [address] 14 Mar, 2011 [facility] [address] [facility] [id number], [place] [address] 11 Mar, 2011 [facility] [address] [facility] [id number], [place] [address] 10 Mar, 2011 [facility] [address] [facility] [id number], [place] [address] 10 Mar, 2011 [facility] [address] [facility] [id number], [place] [address] 15 Jan, 2011 [facility] [address] [facility] [id number], [place] [address] 15 Nov, 2010 [facility] [address] [facility] [id number], [place] [address] 30 Apr, 2010 [facility] [address] [facility] [id number], [place] [address] Apr, [facility] [address] [facility] [id number][place] [id number] Apr, [facility] [address] [facility] [id number], [place] [address] Apr, [facility] [address] [facility] [id number], [place] [address] Mar, [facility] [address] [facility] [id number], [place] [address] Mar, [facility] [address] [facility] [id number], [place] [address] 14 Feb, 2010 [facility] [address] [facility] [id number], [place] [address] Feb, [facility] [address] [facility] [id number], [place] [address] 10 Feb, 2010 IMMUNIZATIONS No Known Immunizations SOCIAL HISTORY Never Assessed REASON FOR VISIT pump mgnt PLAN OF CARE VITAL SIGNS MEDICATIONS Medication Instructions Dosage Frequency Start Date End Date Duration Status NovoLog 100 UNIT/ML INJECT SUBCUTANEOUSLY DIRECTED PER INSULIN PUMP Active RESULTS No Results PROCEDURES No Known [...]
[2017-11-01] MEDS ORDERED: HEParin (CATH LAB) 2,000 ML IV ONE (09:47)
[2017-11-01] MEDS ORDERED: NS IV 1000 ML 1,000 ML ONE (09:47)
[2017-11-01] MEDS ORDERED: NS IV 1000 ML 1,000 ML IV SCH ×2 (10:15→15:33)
[2017-11-01 10:18] LABS: HEMOGLOBIN 15.2 G/DL (13.3-17.7); MEAN PLATELET VOLUME 10.6 FL (7.4-10.4); RED BLOOD COUNT 4.75 10^6/uL (4.35-5.85); RED CELL DISTRIBUTION WIDTH 14.2 % (10.0-14.5); WHITE BLOOD COUNT 8.7 10^3/uL (4.3-11.0)
[2017-11-01 10:35] LABS: ALANINE AMINOTRANSFERASE 20 U/L (0-55); ALBUMIN 3.9 GM/DL (3.2-4.5); ALKALINE PHOSPHATASE 67 U/L (40-136); BILIRUBIN,TOTAL 0.6 MG/DL (0.1-1.0); BUN/CREATININE RATIO 20; CARBON DIOXIDE 22 MMOL/L (21-32); CHLORIDE 106 MMOL/L (98-107); CHOLESTEROL 225 MG/DL (< 200); CREATININE SERUM 0.83 MG/DL (0.60-1.30); GFR ESTIMATED > 60; GLUCOSE 215 MG/DL (70-105); HDL CHOLESTEROL 72 MG/DL (40-60); POTASSIUM 4.3 MMOL/L (3.6-5.0); SODIUM 138 MMOL/L (135-145); TOTAL PROTEIN 6.8 GM/DL (6.4-8.2); TRIGLYCERIDES 71 MG/DL (<150); VLDL CHOLESTEROL 14 MG/DL (5-40)
[2017-11-01 10:38] LABS: INR 0.9 (0.8-1.4); PROTHROMBIN TIME PATIENT 12.5 SEC (12.2-14.7)
[2017-11-01] MEDS ORDERED: INSU100V16 SQ (10:47)
[2017-11-01] MEDS ORDERED: PREG75CA PO (10:47)
[2017-11-01] MEDS ORDERED: ATOR80TA76 PO (10:47)
[2017-11-01] MEDS ORDERED: LEVO50TA6 PO (10:47)
[2017-11-01] MEDS ORDERED: SERT50TA2 PO (10:47)
[2017-11-01] MEDS ORDERED: LEVE250T18 PO (10:47)
[2017-11-01] MEDS ORDERED: LIDOCAINE 1% INJ 20 ML 20 ML VIAL ONE (12:06)
--- NOTE | 2017-11-01 12:08 | Cardiac Procedure Note-CS/ASA ---
Pre-Procedure Note Pre-Op Procedure Note H&P Reviewed The H&P was reviewed, patient examined and no changes noted. Date H&P Reviewed: Nov 01, 2017 Time H&P Reviewed: 12:08 Conscious Sedation Pre-Proced Time Reviewed: 12:08 ASA Class: 3 Airway Mallampati Classification: ([place] appropriate class) I. II. III, IV Lungs Heart ASA score ASA 1: a normal healthy patient ASA 2: a patient with a mild systemic disease (mid diabetes, controlled hypertension, obesity ASA 3: a patient with a severe systemic disease that limits activity (angina , COPD, prior Myocardial infarction) ASA 4: a patient with an incapacitating disease that is a constant threat to life (CHF, renal failure) ASA 5: a moribund patient not expected to survive 24 hrs. (ruptured aneurysm) ASA 6: a declared brain patient whose organs are being harvested. For emergent operations, add the letter E after the classification Grade 2 Sedation Plan: Analgesia, Amnesia, Plan communicated to team members, Discussed options with patient/fam, Discussed risks with patient/fam Note The patient is an appropriate candidate to undergo the planned procedure, sedation, and anesthesia. The patient immediately re-assessed prior to indication. MARIA TERESA CUEVA MD FACP FACC CCDS Nov 01, 2017 12:08
[2017-11-01] MEDS ORDERED: PATIENT MAY USE OWN MEDS, ALL PO SCH ×2 (15:45→16:00)
[2017-11-01] MEDS ORDERED: ACETAMINOPHEN 325 MG TABLET/CAPLET (TYLENOL) PO PRN ×2 (15:45→16:00)
[2017-11-01] MEDS ORDERED: INSULIN VIAL ASPART for PUMP 100 UNIT/ML VIAL SQ SCH ×2 (15:45→16:00)
[2017-11-01] MEDS ORDERED: ONDANSETRON 4 MG/2 ML (SDV) Z0FRAN ONE (16:37)
[2017-11-01] MEDS: NS IV 1000 ML 1,000 ML IV SCH (16:43)
[2017-11-01] MEDS ORDERED: ONDANSETRON 4 MG/2 ML (SDV) Z0FRAN IVP PRN (16:45)
--- NOTE | 2017-11-01 19:35 | OPERATIVE REPORT ---
DATE OF SERVICE: 11/01/2017 The patient is a 62-year-old man with multiple risk factors for peripheral arterial disease and severe bilateral leg claudication. Peripheral angiography was carried out today after having obtained informed consent for abdominal aortic and peripheral angiography and possible ad hoc peripheral intervention, if needed. DESCRIPTION OF PROCEDURE: He was brought to the cardiac catheterization laboratory in a fasting state. Both groins were prepared and draped in usual sterile fashion. Lidocaine 1% was used for local anesthesia. We initially advanced a 5-Czech sheath into the right femoral artery, but we were not able to get blood back and we removed the sheath and held pressure and then accessed the left side. We were able to advance a 5-Czech sheath into the right femoral artery using the Seldinger technique and we were subsequently able to carry out angiography. There was no evidence of any dissection or disruption at the site of access on the right side (where we had been unsuccessful to get access). We first carried out abdominal aortic angiography with the pigtail catheter placed at the level of L1, above the level of the renal arteries. We then carried out bilateral leg artery angiography with the pigtail catheter placed below the renal arteries just above the aortoiliac bifurcation. Subsequently, we carried out percutaneous intervention to the right superficial femoral artery as described below. PERCUTANEOUS INTERVENTION TO THE RIGHT SUPERFICIAL FEMORAL ARTERY: Following completion of the diagnostic procedure, we used a crossover catheter from our left femoral access site to advance a Storq wire into the right iliac artery and the right femoral system over which we were then able to exchange the 5-Czech sheath for a 45 cm 6-Czech sheath with the tip of the sheath placed in the proximal portion of the right superficial femoral artery. We then removed the Storq wire. We gave 5000 units of intravenous heparin. An additional 2500 units of intravenous heparin were given during the procedure. We used a command wire to cross the complete occlusion in the right superficial femoral artery with moderate difficulty and we were subsequently able to carry out balloon angioplasty throughout the course of the right superficial femoral and the right popliteal with a 5.0 x 120 mm balloon. This restored antegrade flow. We then carried out balloon angioplasty with a 6.0 x 200 mm balloon. Subsequent angiography revealed improvement of flow, but there was a dissection at the site of complete occlusion and also localized dissection in the proximal portion of the left superficial femoral. We carried out stenting in the mid right superficial femoral artery with Supera 5.5 x 150 mm stent. We carried out stenting in the proximal right superficial femoral artery with Supera 5.5 x 16 mm stent. These stents are not overlapping. Subsequently, we carried out balloon angioplasty of the entire superficial femoral artery with 5.5 x 150 mm balloon. Final angiography reveals brisk antegrade flow throughout the right superficial femoral artery without any significant dissection. We slowly pulled back the sheath and repeated angiography of the right iliac artery. There did not appear to be significant iliac artery stenosis or dissection. This long sheath was then exchanged for a short 6-Czech sheath and angiography of the left femoral artery was carried out through the sheath and Mynx was used to achieve hemostasis. He tolerated the procedure well. ABDOMINAL AORTIC BILATERAL LEG ARTERY ANGIOGRAPHY: Abdominal aortic angiography indicates abdominal aortic calcification. Renal arteries are intact and do not exhibit any significant stenoses. The mesenteric vessels, to the extent visualized, are intact. The aortoiliac bifurcation has considerable calcification. There is approximately 50% stenosis of the left common iliac artery. The right superficial femoral artery is occluded in its mid portion and there was 80% stenosis in the distal right superficial femoral extending into the right popliteal artery. There was a 2-vessel runoff. The right superficial femoral artery and popliteal artery underwent balloon angioplasty and stenting as described above, following this procedure, there is no significant residual stenosis and flow throughout the vessel is brisk and normal. The left superficial femoral artery is occluded in its mid portion and it reconstitutes via collaterals distally and there appears to be a 2-vessel runoff. CONCLUSIONS: 1. Bilateral superficial femoral artery occlusions. The patient underwent successful balloon angioplasty and stenting of the right superficial femoral and popliteal system (nonoverlapping Supera stents: 5.5 x 150 and 5.5 x 60). DISCUSSION AND RECOMMENDATIONS: He has been advised to quit smoking immediately and completely. Dual antiplatelet therapy has been initiated. He has been hospitalized for overnight observation. Left-sided superficial femoral arterial intervention is planned for a later date. Job ID: [id number] DocumentID: [id number] Dictated Date: 11/01/2017 15:50:19 Ase Master Mechanic Date: 11/01/2017 19:35:10 Dictated By: MARIA TERESA CUEVA MD, MA, FACP, FACC, MTDD
[2017-11-01] MEDS: PREGABALIN 75 MG (LYRICA) CAP PO SCH (20:49)
[2017-11-01] MEDS ORDERED: ATORVASTATIN 80 MG (LIPITOR) TABLET PO SCH (21:00)
[2017-11-01] MEDS ORDERED: PREGABALIN 75 MG (LYRICA) CAP PO SCH (21:00)
[2017-11-02] VITALS: BP 149/77
[2017-11-02] MEDS: NS IV 1000 ML 1,000 ML IV SCH (03:14)
[2017-11-02 03:56] LABS: HEMOGLOBIN 13.6 G/DL (13.3-17.7); MEAN PLATELET VOLUME 10.7 FL (7.4-10.4); RED BLOOD COUNT 4.05 10^6/uL (4.35-5.85); WHITE BLOOD COUNT 16.1 10^3/uL (4.3-11.0)
[2017-11-02 04:00] VITALS: BP 138/75
[2017-11-02 04:23] LABS: BUN/CREATININE RATIO 20; CARBON DIOXIDE 21 MMOL/L (21-32); CHLORIDE 107 MMOL/L (98-107); CREATININE SERUM 0.82 MG/DL (0.60-1.30); GFR ESTIMATED > 60; GLUCOSE 207 MG/DL (70-105); SODIUM 137 MMOL/L (135-145)
[2017-11-02] MEDS ORDERED: LEVOTHYROXINE 50 MCG (LEVOTHROID) TAB PO SCH ×2 (06:30→09:00)
--- NOTE | 2017-11-02 08:06 | Progress Note-Cardiology ---
Cardiology SOAP Progress Note Subjective: In bed. No c/o left groin pain. States he has been up ambulating in the room without difficulty. Objective: I&O/Vital Signs 11/02/17 11/02/17 11/02/17 00:00 01:00 04:00 Pulse 85 86 89 B/P (MAP) 149/77 (101) 138/75 (96) Pulse Ox 96 96 O2 Delivery Room Air Room Air Weight (Pounds): 161 Weight (Ounces): 0.0 Weight (Calculated Kilograms): 73.353266 Side: left Condition: extremity w/d/p Drainage: No Bruising: mild bruising Constitutional: AAO x 3 Respiratory: chest expansion is symmetric, chest is bilaterally symmetric, lungs clear to auscultation Cardiovascular: regular rate-rhythm; No JVD; S1 and S2 Gastrointestional: No tender; soft, audible bowel sounds Neurologic/Psychiatric: grossly intact Skin: No rash, No ulcerations Results/Procedures: Labs Laboratory Tests 11/01/17 10:00: White Blood Count 8.7, Red Blood Count 4.75, Hemoglobin 15.2, Hematocrit 45, Mean Corpuscular Volume 94, Mean Corpuscular Hemoglobin 32, Mean Corpuscular Hemoglobin Concent 34, Red Cell Distribution Width 14.2, Platelet Count 325, Mean Platelet Volume 10.6H, Prothrombin Time 12.5, INR Comment 0.9, Activated Partial Thromboplast Time 27, Sodium Level 138, Potassium Level 4.3, Chloride Level 106, Carbon Dioxide Level 22, Anion Gap 10, Blood Urea Nitrogen 17, Creatinine 0.83, Estimat Glomerular Filtration Rate > 60, BUN/Creatinine Ratio 20, Glucose Level 215H, Calcium Level 9.0, Total Bilirubin 0.6, Aspartate Amino Transf (AST/SGOT) 12, Alanine Aminotransferase (ALT/SGPT) 20, Alkaline Phosphatase 67, Total Protein 6.8, Albumin 3.9, Triglycerides Level 71, Cholesterol Level 225H, LDL Cholesterol Direct 142H, VLDL Cholesterol 14, HDL Cholesterol 72H 11/01/17 17:10: Glucometer 448*H 11/02/17 03:10: White Blood Count 16.1H, Red Blood Count 4.05L, Hemoglobin 13.6, Hematocrit 39L , Mean Corpuscular Volume 95, Mean Corpuscular Hemoglobin 34, Mean Corpuscular Hemoglobin Concent 35, Red Cell Distribution Width 14.0, Platelet Count 277, Mean Platelet Volume 10.7H, Sodium Level 137, Potassium Level 4.0, Chloride Level 107, Carbon Dioxide Level 21, Anion Gap 9, Blood Urea Nitrogen 16, Creatinine 0.82, Estimat Glomerular Filtration Rate > 60, BUN/Creatinine Ratio 20, Glucose Level 207H, Calcium Level 8.0L 11/02/17 03:13: Glucometer 218H Procedures S/P peripheral angiogram with successful intervention on 11-01-17. Please see Dr. Altamirano's operative report for details. A/P: Assessment: PAD - Angiography of 11/01/17: Bilateral superficial femoral artery occlusions. The patient underwent successful balloon angioplasty and stenting of the right superficial femoral popliteal system (nonoverlapping Supera stents: 5.5 x 150 and 5.5 x 60) Chronic tobacco use: 40 pack years - immediate cessation advised Hypertension Hyperlipidemia Type I DM Acquired hypothyroidism treated with thyroid replacement therapy H/o anxiety/depression, controlled Plan: S/P successful peripheral intervention on 11-01-17 OK to discharge home today Wants to return to work on Tuesday Continue current medication regimen including Plavix Immediate smoking cessation advised F/U as an out pt Physician Assessment Physician Assessment No cp or palp or syncope or leg or groin discomfort. Wishes to go home Lungs: clear Cor: reg Ext: no c/c/e. Mild bruising at sites of groin access w/o hematoma/inflammation A&R * As documented in our note above that I updated (italics) and as noted below * I had a long and detailed discussion with him regarding the findings of angio and interventions undertaken * Risk factor modification was discussed and advised. In particular, we have asked him to quit smoking immediately and completely * We have advised compliance with meds * Pros and cons and potential side effects of current meds were reviewed * Questions were answered MELIDA SALAZAR Nov 02, 2017 08:06 MARIA TERESA ALTAMIRANO MD [facility] Nov 02, 2017 09:28
[2017-11-02] MEDS ORDERED: ASPI-999 PO (08:39)
[2017-11-02] MEDS ORDERED: CLOP75TA28 PO (08:39)
--- NOTE | 2017-11-02 08:41 | Discharge Inst-Cardiology ---
Discharge Inst-Cardiac Discharge Medications New Medications: Aspirin (Aspirin) 81 Mg Tab.chew 81 MG PO DAILY, #100 TAB 5 Refills Clopidogrel Bisulfate (Clopidogrel) 75 Mg Tablet 75 MG PO DAILY, #30 TAB 5 Refills Continued Medications: Atorvastatin Calcium (Atorvastatin Calcium) 80 Mg Tablet 80 MG PO DAILY, TAB Insulin Aspart (Novolog) 100 Unit/1 Ml Susp SQ PER INSULIN PUMP, EACH Levetiracetam (Keppra) 250 Mg Tablet 500 MG PO DAILY, TAB TAKES 2 (250MG) TABLETS Levothyroxine Sodium (Levothyroxine Sodium) 50 Mcg Tablet 50 MCG PO DAILY, TAB Pregabalin (Lyrica) 75 Mg Capsule 75 MG PO BID, CAP Quinapril HCl (Accupril) 20 Mg Tablet 20 MG PO DAILY, TAB Sertraline HCl (Zoloft) 50 Mg Tablet 50 MG PO DAILY, TAB New, Converted or Re-Newed RX: Transmitted to Pharmacy Patient Instructions Patient Instructions: Please schedule follow up appt to see Dr. Altamirano in 2 weeks Orders-Post D/C & Referrals Pneu Vac Indicated: Yes MELIDA SALAZAR Nov 02, 2017 08:41
[2017-11-02 09:00] VITALS: BP 136/81
[2017-11-02] MEDS ORDERED: ASPIRIN 81 MG CHEW (CHILDREN'S ASA) PO SCH ×2 (09:00)
[2017-11-02] MEDS ORDERED: LEVETIRACETAM 500 MG (KEPPRA) TAB PO SCH (09:00)
[2017-11-02] MEDS ORDERED: ATORVASTATIN 80 MG (LIPITOR) TABLET PO SCH (09:00)
[2017-11-02] MEDS ORDERED: SERTRALINE 50 MG (ZOLOFT) TABLET PO SCH ×2 (09:00)
[2017-11-02] MEDS ORDERED: QUINAPRIL HCL 20 MG PO SCH (09:00)
[2017-11-02] MEDS ORDERED: QUINAPRIL 20 MG (ACCUPRIL) TAB PO SCH (09:00)
[2017-11-02] MEDS ORDERED: CLOPIDOGREL 75 MG (PLAVIX) TABLET PO SCH (09:00)
[2017-11-02] MEDS ORDERED: NON-FORMULARY MEDICATION 1 EA EA (Levetiracetam (Keppra) 500 MG) PO SCH (09:00)
[2017-11-02] MEDS: CLOPIDOGREL 75 MG (PLAVIX) TABLET PO SCH ×2 (09:07→09:41)
[2017-11-02] MEDS: PREGABALIN 75 MG (LYRICA) CAP PO SCH (09:07)
--- NOTE | 2017-11-02 09:35 | Cardiology Discharge Summary ---
Diagnosis/Chief Complaint Date of Admission 11/01/17 Date of Discharge 11/02/17 Final/Discharge Diagnosis PAD - Angiography of 11/01/17: Bilateral superficial femoral artery occlusions. The patient underwent successful balloon angioplasty and stenting of the right superficial femoral popliteal system (nonoverlapping Supera stents: 5.5 x 150 and 5.5 x 60) Chronic tobacco use: 40 pack years - immediate cessation advised Hypertension Hyperlipidemia Type I DM Acquired hypothyroidism treated with thyroid replacement therapy H/o anxiety/depression, controlled Chief Complaint/HPI Chief Complaint/HPI For condition at d/c, please refer to the progress note of the same date (11/02/17 ) Discharge Summary Procedures Abd ao and peripheral angio; PCI to R sup fem artery Hospital Course Pending Labs Laboratory Tests 11/02/17 03:10: White Blood Count 16.1, Red Blood Count 4.05, Hemoglobin 13.6, Hematocrit 39, Mean Corpuscular Volume 95, Mean Corpuscular Hemoglobin 34, Mean Corpuscular Hemoglobin Concent 35, Red Cell Distribution Width 14.0, Platelet Count 277, Mean Platelet Volume 10.7, Sodium Level 137, Potassium Level 4.0, Chloride Level 107, Carbon Dioxide Level 21, Anion Gap 9, Blood Urea Nitrogen 16, Creatinine 0.82, Estimat Glomerular Filtration Rate > 60, BUN/Creatinine Ratio 20, Glucose Level 207, Calcium Level 8.0 11/02/17 03:13: Glucometer 218 Discussion & Recommendations Home Medications Reviewed patient Home Medication Reconciliation performed by pharmacy medication reconciliations vehicle maintenance technician and/or nursing. Patients Allergies have been reviewed. Discharge Home Medications: Reviewed and agree with Discharge Medication list on patient's Discharge Instruction sheet Instructions to patient/family No smoking MARIA TERESA CUEVA MD FACP FAC CCDS Nov 02, 2017 09:35
[2017-11-02 10:20] VITALS: BP 136/81
== END 2017-11-02 10:20 | disposition home or self-care (01) ==
LOC: CATH 08:57 → ICU 15:30 → CATH 11-02 10:20
PROVIDERS: ATTEND Internal Medicine Cardiovascular Disease
DX: I70.203 Unspecified atherosclerosis of native arteries of extremities, bilateral legs (principal); F17.210 Nicotine dependence, cigarettes, uncomplicated; I10 Essential (primary) hypertension; E78.5 Hyperlipidemia, unspecified; E10.9 Type 1 diabetes mellitus without complications; E03.9 Hypothyroidism, unspecified; F41.9 Anxiety disorder, unspecified; F32.9 Major depressive disorder, single episode, unspecified; Z79.899 Other long term (current) drug therapy
CPT/HCPCS: 36415; 37226; 75625; 75716; 80048; 80053; 80061; 82962; 85027; 85610; 85730; 87081; 93005

== ENCOUNTER → 2018-03-02 | Outpatient (CLI) | payer OTHER ==
[~2018-03-02] MED LIST changes: +ASPI-999 PO; +ATOR80TA76 PO; +CLOP75TA28 PO; +CLOP75TA69 PO; +INSU100V16 SQ; +LEVE250T18 PO; +LEVO50TA6 PO; +PREG75CA PO; +SERT50TA2 PO
== END ==
LOC: CARD 13:23
PROVIDERS: ATTEND Internal Medicine Interventional Cardiology
DX: I10 Essential (primary) hypertension (principal); I08.1 Rheumatic disorders of both mitral and tricuspid valves
CPT/HCPCS: 93306

== ENCOUNTER → 2020-01-10 | Outpatient (CLI) | payer MEDICARE, OTHER ==
[~2020-01-10] MED LIST changes: -TRAM50TA2 PO; +TRM50T PO
== END ==
LOC: CARD 14:47
PROVIDERS: ATTEND Internal Medicine Interventional Cardiology
DX: E10.9 Type 1 diabetes mellitus without complications (principal); I10 Essential (primary) hypertension; R07.89 Other chest pain; Z72.0 Tobacco use

== ENCOUNTER 2020-01-17 11:17 | Observation (INO) | payer MEDICARE, OTHER ==
[~2020-01-17] VITALS: Ht 172.7 cm; Wt 73.0 kg
[2020-01-17] VITALS (8 sets, daily range): BP systolic 128–156; BP diastolic 65–79
[~2020-01-17 11:17] MED LIST changes: -AMLO5TAB9 PO; -BUPR150T28 PO; -DICL75TA2 PO; -DexMEDEtomidine 250 ML DRIP 250 ML IV ONE; -EZET10TA49 PO; -HEParin (CATH LAB) 0 ML IV ONE; -LEVE250T5 PO; -LEVO75TA6 PO; -LIDOCAINE 1% INJ 20 ML 20 ML VIAL ONE; -MIDAZOLAM 5 MG/5 ML (VERSED) VIAL ONE; -NS IV 1000 ML 0 ML ONE; -NS IV 1000 ML 1,000 ML IV SCH; -QUIN40TA14 PO; -TIZA4TAB4 PO; -fentaNYL INJECTION 100 MCG/2 ML AMP ONE
[2020-01-17] MEDS ORDERED: HEParin (CATH LAB) 2,000 ML IV ONE (11:51)
[2020-01-17] MEDS ORDERED: NS IV 1000 ML 1,000 ML ONE (11:51)
[2020-01-17] MEDS ORDERED: LIDOCAINE 1% INJ 20 ML 20 ML VIAL ONE (11:51)
[2020-01-17 11:52] LABS: HEMOGLOBIN 14.4 G/DL (13.3-17.7); MEAN PLATELET VOLUME 10.4 FL (7.4-10.4); RED CELL DISTRIBUTION WIDTH 15.9 % (10.0-14.5); WHITE BLOOD COUNT 8.8 10^3/uL (4.3-11.0)
[2020-01-17 12:05] LABS: INR 0.9 (0.8-1.4); PROTHROMBIN TIME PATIENT 12.2 SEC (12.2-14.7)
[2020-01-17] MEDS ORDERED: LEVE250T5 PO (12:08)
[2020-01-17] MEDS ORDERED: BUPR150T28 PO (12:08)
[2020-01-17] MEDS ORDERED: DICL75TA2 PO (12:08)
[2020-01-17] MEDS ORDERED: EZET10TA49 PO (12:08)
[2020-01-17] MEDS ORDERED: TIZA4TAB4 PO (12:08)
[2020-01-17] MEDS ORDERED: AMLO5TAB9 PO (12:08)
[2020-01-17] MEDS ORDERED: QUIN40TA14 PO (12:08)
[2020-01-17] MEDS ORDERED: LEVO75TA6 PO (12:08)
[2020-01-17 12:14] LABS: ALANINE AMINOTRANSFERASE 25 U/L (0-55); ALBUMIN 4.1 GM/DL (3.2-4.5); ALKALINE PHOSPHATASE 66 U/L (40-136); BILIRUBIN,TOTAL 0.4 MG/DL (0.1-1.0); BUN/CREATININE RATIO 21; CALCIUM 8.9 MG/DL (8.5-10.1); CARBON DIOXIDE 24 MMOL/L (21-32); CHLORIDE 107 MMOL/L (98-107); CHOLESTEROL 203 MG/DL (< 200); CREATININE SERUM 0.81 MG/DL (0.60-1.30); GFR ESTIMATED > 60; GLUCOSE 107 MG/DL (70-105); HDL CHOLESTEROL 83 MG/DL (40-60); POTASSIUM 4.1 MMOL/L (3.6-5.0); SODIUM 140 MMOL/L (135-145); TOTAL PROTEIN 6.8 GM/DL (6.4-8.2); TRIGLYCERIDES 71 MG/DL (<150); VLDL CHOLESTEROL 14 MG/DL (5-40)
[2020-01-17] MEDS ORDERED: MIDAZOLAM 5 MG/5 ML (VERSED) VIAL ONE ×2 (13:14→14:49)
[2020-01-17] MEDS ORDERED: fentaNYL INJECTION 100 MCG/2 ML AMP ONE (13:15)
[2020-01-17] MEDS ORDERED: diphenhydrAMINE 50 MG/ML INJ (BENADRYL) ONE (14:18)
[2020-01-17] MEDS ORDERED: HEParin 1000 UNIT/ML (10ML VIAL) FOR BOLUS ONE (14:28)
[2020-01-17] MEDS ORDERED: NITRO DRIP 25000 MCG/D5W 0 ML IV ONE (14:28)
[2020-01-17] MEDS ORDERED: CLOPIDOGREL 300 MG (PLAVIX) TABLET PO ONE (14:33)
[2020-01-17] MEDS ORDERED: HYDROmorphone 2 MG/ML VIAL (DILAUDID) ONE (15:04)
[2020-01-17] MEDS ORDERED: niCARdipine 25 MG/10 ML (CARDENE) AMP IV ONE (15:27)
[2020-01-17] MEDS ORDERED: NS (IVPB) 250 ML ONE (15:27)
[2020-01-17] MEDS ORDERED: TENECTEPLASE 5 MG in SYRINGE-IVPB 0 SYRINGE, WATER (STERILE) FOR INJECTION 4 ML IV ONE ×3 (15:30)
[2020-01-17] MEDS ORDERED: HEParin DRIP 25000 UNIT/500ML 500 ML IV ONE (15:58)
[2020-01-17] MEDS ORDERED: TENECTEPLASE 5 MG in NS IV 500 ML 500 ML IV SCH ×2 (16:00→16:15)
[2020-01-17] MEDS ORDERED: NS IV 1000 ML 1,000 ML IV SCH (16:14)
[2020-01-17] MEDS ORDERED: HEParin DRIP 25000 UNIT/500ML 500 ML IV SCH (16:14)
--- NOTE | 2020-01-17 16:14 | Coronary Angiography & PCI ---
Peripheral Angio & Interv DATE OF SERVICE: 01/17/20 PRIMARY PHYSICIAN: Josephine Smith MD PERFORMING INTERVENTIONALIST: Dr. Larry Cox INDICATION: severe critical limb ischemia of the right lower extremity. PREOPERATIVE INDICATION: severe critical limb ischemia of the right lower extremity. POSTOPERATIVE DIAGNOSIS: occluded right distal SFA treated with ARCH PAD CEMENTER. Acute/subacute occlusion of the TP trunk, overnight thrombolytic infusion HISTORY: This a 65-year-old gentleman with previous history of bilateral lower extremity PAD/stents. He has history of diabetes. He continues to smoke. he presented with resting discomfort of the bilateral lower extremity, right is worse than the left. We ordered ARMANDO/ultrasound. He called back and told us that he has discoloration of the right fourth toe, therefore he was urgently scheduled for peripheral angiography and possible intervention. PROCEDURE PERFORMED: 1. Abdominal aortogram and bilateral lower extremity runoff. 2. Right unilateral selective lower extremity angiogram. 3. ARCH PAD CEMENTER of right distal SFA. 4. ARCH PAD CEMENTER of the right tibioperoneal trunk/deep peroneal artery. 5. Intra-arterial nicardipine in the right tibioperoneal trunk. 6. Manual thrombectomy in the right tibioperoneal trunk. 7. Intra-arterial thrombolytics in the right tibial peroneal trunk. 8. 12 hours infusion of thrombolytics in the right tibial peroneal trunk. SPECIMENS: None. ANESTHESIA: Conscious sedation. BLOOD LOSS: 20 mL. COMPLICATIONS: None. CONTRAST USED: 140 ml. FLUOROSCOPY DOSE: 95 Mgy. FLUOROSCOPY TIME: 14.2 minutes. ANTICOAGULATION: none DESCRIPTION OF PROCEDURE: The patient was brought to the r&d lab technician after informed consent was taken. All the risks and complications were explained in detail. The patient was draped and prepped in the usual sterile fashion. Access was gained left femoral artery with a 5 [place] sheath. We went in with a pigtail catheter over a 0.035 J-tipped wire. The pigtail catheter was placed in the mid abdominal aorta and abdominal aortogram and bilateral lower extremity runoff was done. We then crossed over with the pigtail catheter. The tip of the pigtail catheter was in the right external iliac artery. Selective unilateral right lower extremity angiogram was done. We then exchanged the sheath with a 6 [place] by 55 cm long sheath. The tip of the sheath was placed in the mid right SFA and first order catheter placement and angiogram done. FINDINGS: mild distal abdominal aortic disease. Patent right renal artery. 2 left renal arteries which are patent. Right lower extremity: Mild diffuse disease in the right common iliac artery, external iliac artery, common femoral artery. Moderate disease in the proximal/mid SFA. Patent stent with mild to moderate in-stent restenosi in the proximal SFA. There is a distal SFA stent which is occluded in the midsegment. Reconstitution in the right popliteal artery. We were able to visualize a right anterior tibial artery which was patent however the deep peroneal and the posterior tibial were not well visualized. Left lower extremity: Mild diffuse disease in the left commonon femoral artery. Moderate to severe disease in the proximal/mid SFA with occlusion within a stent.reconstitution in the distal SFA with patent popliteal artery and 2 vessel below the knee including a patent anterior tibial artery and deep peroneal artery. RECOMMENDATIONS: 1. Peripheral intervention to the distal right SFA is recommended. 2. Peripheral intervention to the right tibioperoneal trunk is recommended. INTERVENTIONAL DETAILS: the tip of the 6 [place] by [address] in the mid right SFA. patient was given 600 mg of Plavix and IV heparin. ACT was over 200 seconds. We crossed the occlusive segment in the distal SFA with the command ST 0.018 wire. The tip of the wire was placed in the popliteal artery. Balloon angioplasty was done with the [place] 5 x 100 x 1 50 balloon at 16 merrick for 182 seconds. We then advanced the balloon further in the distal SFA and proximal popliteal artery and performed another room angioplasty at 16 merrick for 230 second. Selective angiogram showed revascularization of the right SFA however better visualization of below the knee showed patent right anterior tibial artery however occluded TP trunk (acute vs subacute). faint filling of the PT was noted. We advanced the command 0.018 wire into the mid deep peroneal artery and then took an [place] 2.5 x 40 x 1 50 balloon and performed a short inflation at 8 merrick with no significant improvement. We then did another inflation at 8 merrick for 184 seconds with some better distal filling. He then exchanged the wire to a command 0.014 wire. The balloon was taken out and we went in with an manual thrombectomy catheter. Thrombectomy was done twice by aspiration. Improved flow was noted with visualized thrombus. We then injected through the aspiration catheter IV nicardipine 300 mcg. We also gave 2000 international units of intra-arterial heparin. We then gave through the thrombectomy catheter slow push of 5 mg of TNKase. Post-angiogram showed significant residual thrombus however filling of the deep peroneal and posterior tibial was noted. At this point in time we took the aspiration catheter out and went in with an infusion catheter and started TNKase infusion as per protocol. This will be done for the next 12-14 hours. And follow-up study will be done tomorrow morning. We also started IV heparin as well. The long sheath was sutured. Patient tolerated procedure well and did not have any complication. CONCLUSION: 1. Acute on chronic limb ischemia. Occluded distal right SFA stent, status post balloon angioplasty. Acute/subacute closure of the right TP trunk treated with balloon angioplasty, intra- thrombolytics, aspiration thrombectomy. However significant residual thrombus therefore infusion of thrombolytics through an infusion catheter overnight. 2. IV heparin. 3. Peripheral angiogram and intervention tomorrow morning. Larry Cox MD, FACP, FACC, [facility] Chris COX MD Jan 17, 2020 16:14
[2020-01-17] MEDS ORDERED: PATIENT MAY USE OWN MEDS, ALL PO SCH (16:15)
--- NOTE | 2020-01-17 16:16 | Cardiac Procedure Note-CS/ASA ---
Pre-Procedure Note Pre-Op Procedure Note H&P Reviewed The H&P was reviewed, patient examined and no changes noted. Date H&P Reviewed: Jan 17, 2020 Time H&P Reviewed: 13:00 Conscious Sedation Pre-Proced Time 13:00 ASA Score 3 For ASA 3 and 4: Consider anesthesia and medical clearance. Also, for patients with a history of failed moderate sedation consider anesthesia. Airway Lungs Heart ASA score ASA 1: a normal healthy patient ASA 2: a patient with a mild systemic disease (mid diabetes, controlled hypertension, obesity ASA 3: a patient with a severe systemic disease that limits activity (angina, COPD, prior Myocardial infarction) ASA 4: a patient with an incapacitating disease that is a constant threat to life (CHF, renal failure) ASA 5: a moribund patient not expected to survive 24 hrs. (ruptured aneurysm) ASA 6: a declared brain- patient whose organs are being harvested. For emergent operations, add the letter E after the classification Mallampati Classification Grade 1 Sedation Plan Analgesia, Amnesia, Plan communicated to team members, Discussed options with patient/fam, Discussed risks with patient/fam The patient is an appropriate candidate to undergo the planned procedure, sedation, and anesthesia. The patient immediately re-assessed prior to indication. Chris RUSSELL MD Jan 17, 2020 16:16
[2020-01-17] MEDS: NS IV 1000 ML 1,000 ML IV SCH ×2 (18:31→20:15)
[2020-01-17] MEDS: DexMEDEtomidine 250 ML DRIP 250 ML IV SCH (18:31)
[2020-01-17] MEDS ORDERED: inSUlin ASPART (NovoLOG) 1 UNIT/0.01 ML (CHARGE PER UNIT) ONE (18:49)
[2020-01-17] MEDS: inSUlin ASPART (NovoLOG) 1 UNIT/0.01 ML (CHARGE PER UNIT) SC SCH ×2 (18:57→23:28)
--- NOTE | 2020-01-17 20:19 | Consultation ---
HPI History of Present Illness: 65 yo male admitted after peripheral angio intervention. He is mildly sedated due to difficulty lying still/flat, but is able to answer some questions. Complaining of left heel pain. Source: patient Exam Limitations: clinical condition Date seen by provider: Jan 17, 2020 Time Seen by Provider: 20:00 Attending Physician Chris Cox MD PCP Josephine Smith MD Consult Date of Admission Home Medications Home Medications Reviewed patient Home Medication Reconciliation performed by pharmacy medication reconciliations roof service technician and/or nursing. Patients Allergies have been reviewed. Allergies Coded Allergies: lamotrigine (Verified Allergy, Unknown, 11/22/17) morphine (Verified Allergy, Unknown, 11/22/17) BY MOUTH CAUSES UPSET STOMACH [id number] Hx Patient Social History Alcohol Use: Occasionally Uses Recreational Drug Use: No Smoking Status: Current Everyday Smoker Type Used: Cigarettes Recent Foreign Travel: No Contact w/other who traveled: No Recent Hopitalizations: No Immunizations Up To Date Date of Influenza Vaccine: Mar 28, 2015 Past Medical History PMHx: DMII Seizure disorder HTN Atherosclerotic occlusive disease Family Medical History Significant Family History: No Pertinent Family Hx Review of Systems ([facility]) Constitutional: other (unable to obtain due to patient condition) Reviewed Test Results Reviewed Test Results Lab Laboratory Tests Test 01/17/20 11:16 01/17/20 18:30 Range/Units White Blood Count 8.8 4.3-11.0 10^3/uL Red Blood Count 4.48 4.35-5.85 10^6/uL Hemoglobin 14.4 13.3-17.7 G/DL Hematocrit 43 40-54 % Mean Corpuscular Volume 96 80-99 FL Mean Corpuscular Hemoglobin 32 25-34 PG Mean Corpuscular Hemoglobin Concent 34 32-36 G/DL Red Cell Distribution Width 15.9 H 10.0-14.5 % Platelet Count 343 130-400 10^3/uL Mean Platelet Volume 10.4 7.4-10.4 FL Prothrombin Time 12.2 12.2-14.7 SEC INR Comment 0.9 0.8-1.4 Activated Partial Thromboplast Time 28 > 200 *H 24-35 SEC Sodium Level 140 135-145 MMOL/L Potassium Level 4.1 3.6-5.0 MMOL/L Chloride Level 107 98-107 MMOL/L Carbon Dioxide Level 24 21-32 MMOL/L Anion Gap 9 5-14 MMOL/L Blood Urea Nitrogen 17 7-18 MG/DL Creatinine 0.81 0.60-1.30 MG/DL Estimat Glomerular Filtration Rate > 60 BUN/Creatinine Ratio 21 Glucose Level 107 H 70-105 MG/DL Calcium Level 8.9 8.5-10.1 MG/DL Corrected Calcium 8.8 8.5-10.1 MG/DL Total Bilirubin 0.4 0.1-1.0 MG/DL Aspartate Amino Transf (AST/SGOT) 15 5-34 U/L Alanine Aminotransferase (ALT/SGPT) 25 0-55 U/L Alkaline Phosphatase 66 40-136 U/L Total Protein 6.8 6.4-8.2 GM/DL Albumin 4.1 3.2-4.5 GM/DL Triglycerides Level 71 <150 MG/DL Cholesterol Level 203 H < 200 MG/DL LDL Cholesterol Direct 118 1-129 MG/DL VLDL Cholesterol 14 5-40 MG/DL HDL Cholesterol 83 H 40-60 MG/DL Physical Exam-([facility]C) Physical Exam Vital Signs VS - Last 72 Hours, by Label 01/17/20 01/17/20 01/17/20 01/17/20 11:39 16:00 16:30 16:59 Temp 36.6 Pulse 69 77 74 Resp 20 B/P (MAP) 156/74 (101) 138/70 (92) Pulse Ox 96 O2 Delivery Room Air 01/17/20 01/17/20 01/17/20 01/17/20 17:00 18:00 18:31 19:37 Temp 36.8 Pulse 71 79 77 Resp 12 15 B/P (MAP) 131/65 (87) 143/70 (94) Pulse Ox 95 87 O2 Delivery Room Air Room Air Capillary Refill : NONE General Appearance: no apparent distress, other (lethargic) Respiratory: lungs clear, normal breath sounds Cardiovascular: regular rate, rhythm, no murmur Gastrointestinal: normal bowel sounds, non tender, soft Extremities: no pedal edema Assessment/Plan Assessment/Plan (1) Seizure disorder Status: Chronic Assessment & Plan: Continue home Keppra (2) Hypertension Status: Chronic Assessment & Plan: Resume home medications Qualifiers: Qualified Codes: I10 - Essential (primary) hypertension (3) Hyperlipidemia Status: Chronic Assessment & Plan: Resume home medications (4) PAD (peripheral artery disease) Status: Chronic Assessment & Plan: Peripheral intervention today- found to have occluded distal right SFA stent, treated with balloon angioplasty and acute/subacture clotting right TP trunk treated with baloon angioplasty, aspiration thrombectomy and intra-thrombolytics. Management per Cardiology. (5) Depression Status: Chronic Assessment & Plan: Resume home medications THOMAS KRUGER MD Jan 17, 2020 20:19
[2020-01-17] MEDS: buPROPion SR 150 MG (WELLBUTRIN SR) TAB PO SCH (22:15)
[2020-01-18] VITALS (23 sets, daily range): BP systolic 108–161; BP diastolic 63–84
[2020-01-18 04:28] LABS: HEMOGLOBIN 13.6 G/DL (13.3-17.7); MEAN PLATELET VOLUME 10.8 FL (7.4-10.4); RED CELL DISTRIBUTION WIDTH 15.3 % (10.0-14.5)
[2020-01-18 04:46] LABS: BUN/CREATININE RATIO 19; CALCIUM 7.8 MG/DL (8.5-10.1); CARBON DIOXIDE 18 MMOL/L (21-32); CHLORIDE 106 MMOL/L (98-107); CREATININE SERUM 0.78 MG/DL (0.60-1.30); GFR ESTIMATED > 60; GLUCOSE 216 MG/DL (70-105); MAGNESIUM 1.7 MG/DL (1.6-2.4); PHOSPHORUS 2.9 MG/DL (2.3-4.7); POTASSIUM 5.1 MMOL/L (3.6-5.0); SODIUM 135 MMOL/L (135-145)
[2020-01-18] MEDS: MAGNESIUM 1 GM/100 ML IVPB 100 ML IV SCH ×3 (05:05→05:15)
[2020-01-18] MEDS: POTASSIUM CL 10MEQ/50ML IVPB 50 ML IV SCH (05:05)
[2020-01-18] MEDS: KCL 20 MEQ TAB (K-DUR) PO SCH (05:05)
[2020-01-18] MEDS: NS IV 1000 ML 1,000 ML IV SCH ×2 (05:13→20:18)
[2020-01-18] MEDS: inSUlin ASPART (NovoLOG) 1 UNIT/0.01 ML (CHARGE PER UNIT) SC SCH ×4 (05:14→23:47)
[2020-01-18] MEDS: LEVOTHYROXINE 75 MCG (LEVOTHROID) TABLET PO SCH (05:14)
[2020-01-18] MEDS: ASPIRIN E.C. 81 MG (ECOTRIN) TAB PO SCH (08:25)
[2020-01-18] MEDS: CLOPIDOGREL 75 MG (PLAVIX) TABLET PO SCH (08:25)
[2020-01-18] MEDS ORDERED: LIDOCAINE 1% INJ 20 ML 20 ML VIAL ONE (08:29)
[2020-01-18] MEDS ORDERED: MIDAZOLAM 5 MG/5 ML (VERSED) VIAL ONE (08:29)
[2020-01-18] MEDS ORDERED: fentaNYL INJECTION 100 MCG/2 ML AMP ONE ×2 (08:29→17:04)
[2020-01-18] MEDS ORDERED: HEParin (CATH LAB) 2,000 ML IV ONE (08:30)
[2020-01-18] MEDS ORDERED: HEParin 1000 UNIT/ML (10ML VIAL) FOR BOLUS ONE (10:00)
--- NOTE | 2020-01-18 10:48 | Cardiac Procedure Note-CS/ASA ---
Pre-Procedure Note Pre-Op Procedure Note H&P Reviewed The H&P was reviewed, patient examined and no changes noted. Date H&P Reviewed: Jan 18, 2020 Time H&P Reviewed: 09:00 Conscious Sedation Pre-Proced Time 09:00 ASA Score 3 For ASA 3 and 4: Consider anesthesia and medical clearance. Also, for patients with a history of failed moderate sedation consider anesthesia. Airway Lungs Heart ASA score ASA 1: a normal healthy patient ASA 2: a patient with a mild systemic disease (mid diabetes, controlled hypertension, obesity ASA 3: a patient with a severe systemic disease that limits activity (angina, COPD, prior Myocardial infarction) ASA 4: a patient with an incapacitating disease that is a constant threat to life (CHF, renal failure) ASA 5: a moribund patient not expected to survive 24 hrs. (ruptured aneurysm) ASA 6: a declared brain- patient whose organs are being harvested. For emergent operations, add the letter E after the classification Mallampati Classification Grade 1 Sedation Plan Analgesia, Amnesia, Plan communicated to team members, Discussed options with patient/fam, Discussed risks with patient/fam The patient is an appropriate candidate to undergo the planned procedure, sedation, and anesthesia. The patient immediately re-assessed prior to indication. Chris RUSSELL MD Jan 18, 2020 10:48
--- NOTE | 2020-01-18 10:48 | Cardiology Progress Note ---
Cardiology SOAP Progress Note Subjective: no right extremity discomfort Objective: I&O/Vital Signs 01/17/20 01/18/20 01/18/20 01/18/20 23:26 00:00 01:00 01:00 Temp 36.8 Pulse 63 63 62 Resp 17 11 B/P (MAP) 146/69 (94) 153/73 (99) Pulse Ox 94 96 O2 Delivery Room Air Room Air Room Air 01/18/20 01/18/20 01/18/20 01/18/20 02:00 03:00 04:00 04:00 Temp 36.6 Pulse 63 63 63 Resp 14 13 14 B/P (MAP) 155/70 (98) 150/74 (99) 157/76 (103) Pulse Ox 95 96 96 O2 Delivery Room Air Room Air Room Air 01/18/20 01/18/20 01/18/20 01/18/20 05:00 06:00 07:00 07:00 Pulse 61 61 12 58 Resp 17 16 12 B/P (MAP) 147/72 (97) 134/73 (93) 121/63 (82) Pulse Ox 97 94 95 O2 Delivery Room Air Room Air Room Air 01/18/20 01/18/20 01/18/20 08:00 08:00 09:00 Pulse 64 54 Resp 12 13 B/P (MAP) 126/70 (88) 150/69 (96) Pulse Ox 96 97 O2 Delivery Room Air Room Air Room Air 01/18/20 00:00 Intake Total 1000 ml Output Total 700 ml Balance 300 ml Weight (Pounds): 159 Weight (Ounces): 0.0 Weight (Calculated Kilograms): [id number] Constitutional: AAO x 3 Respiratory: chest is bilaterally symmetric, lungs clear to auscultation Cardiovascular: regular rate-rhythm, S1 and S2 Gastrointestional: soft, audible bowel sounds Extremities: normal range of motion, non-tender, normal inspection, other (no significant discoloration of the right fourth toe, which was previously discolored.), no lower extremity edema bilateral Neurologic/Psychiatric: no motor/sensory deficits, alert, normal mood/affect, oriented x 3 Results/Procedures: Labs Laboratory Tests 01/17/20 11:16: White Blood Count 8.8, Red Blood Count 4.48, Hemoglobin 14.4, Hematocrit 43, Mean Corpuscular Volume 96, Mean Corpuscular Hemoglobin 32, Mean Corpuscular Hemoglobin Concent 34, Red Cell Distribution Width 15.9H, Platelet Count 343, Mean Platelet Volume 10.4, Prothrombin Time 12.2, INR Comment 0.9, Activated Partial Thromboplast Time 28, Sodium Level 140, Potassium Level 4.1, Chloride Level 107, Carbon Dioxide Level 24, Anion Gap 9, Blood Urea Nitrogen 17, Creatinine 0.81, Estimat Glomerular Filtration Rate > 60, BUN/Creatinine Ratio 21, Glucose Level 107H, Calcium Level 8.9, Corrected Calcium 8.8, Total Bilirubin 0.4, Aspartate Amino Transf (AST/SGOT) 15, Alanine Aminotransferase (ALT/SGPT) 25, Alkaline Phosphatase 66, Total Protein 6.8, Albumin 4.1, Triglycerides Level 71, Cholesterol Level 203H, LDL Cholesterol Direct 118, VLDL Cholesterol 14, HDL Cholesterol 83H 01/17/20 18:30: Activated Partial Thromboplast Time > 200*H 01/17/20 22:20: Activated Partial Thromboplast Time 69H 01/18/20 04:15: White Blood Count 12.0H, Red Blood Count 4.28L, Hemoglobin 13.6, Hematocrit 41, Mean Corpuscular Volume 96, Mean Corpuscular Hemoglobin 32, Mean Corpuscular Hemoglobin Concent 33, Red Cell Distribution Width 15.3H, Platelet Count 262, Mean Platelet Volume 10.8H, Activated Partial Thromboplast Time 38H, Sodium Level 135, Potassium Level 5.1H, Chloride Level 106, Carbon Dioxide Level 18L, Anion Gap 11, Blood Urea Nitrogen 15, Creatinine 0.78, Estimat Glomerular Filtration Rate > 60, BUN/Creatinine Ratio 19, Glucose Level 216H, Calcium Level 7.8L, Phosphorus Level 2.9, Magnesium Level 1.7 A/P: Assessment/Dx: acute on chronic limb ischemia, Active smoking Plan: RETURNED GOODS INSPECTOR to the right SFA done 01/17/2020. Acute/subacute occlusion of the right TP trunk. Patent right anterior tibial artery. RETURNED GOODS INSPECTOR of the right TP trunk was done 01/17/2020. No significant improvement therefore overnight TNKase infusion given. significantly Improved right lower extremity discoloration. patient will be brought to the catheter lab for follow-up peripheral angiogram and possible intervention. Active smoking: Smoking cessation was strongly recommend Thank you for your consultation. Please call me if you have any questions. Larry Cox MD, FACP, FACC, FSCAI, FHRS, CCDS Interventional Cardiology Cardiac Electrophysiology Vascular Medicine and Endovascular Interventions Chris COX MD Jan 18, 2020 10:48
[2020-01-18] MEDS ORDERED: NS IV 1000 ML 1,000 ML IV SCH (10:58)
--- NOTE | 2020-01-18 10:58 | Coronary Angiography & PCI ---
Peripheral Angio & Interv DATE OF SERVICE: 01/18/20 PRIMARY PHYSICIAN: Josephine Smith MD PERFORMING INTERVENTIONALIST: Dr. Larry Cox INDICATION: acute on chronic limb ischemia right lower extremity. PREOPERATIVE INDICATION: acute on chronic limb ischemia right lower extremity. POSTOPERATIVE DIAGNOSIS: status post ARCHITECTURAL JOB CAPTAIN to right SFA. Excellent results. HISTORY: this is a 65-year-old gentleman with history of bilateral lower extremity peripheral interventions. active smoking. Peripheral angiogram yesterday showed distal right SFA stent which was treated with balloon angioplasty. Acute/sub acute occlusion of the right TP trunk which did not improve from ARCHITECTURAL JOB CAPTAIN, intra- arterial nicardipine, intra-arterial heparin, intra-arterial TNKase. Therefore TNKase infusion overnight. he was brought back to the lab for follow-up peripheral angiogram and possible intervention. PROCEDURE PERFORMED: 1. Unilateral right lower extremity angiogram. 2. Balloon angioplasty to the right SFA. SPECIMENS: None. ANESTHESIA: Conscious sedation. BLOOD LOSS: 20 mL. COMPLICATIONS: None. CONTRAST USED: 37 ml. FLUOROSCOPY DOSE: 16 Mgy. FLUOROSCOPY TIME: 3.9 minutes. ANTICOAGULATION: overnight heparin infusion, TNKase infusion DESCRIPTION OF PROCEDURE: The patient was brought to the brush clearing laborer after informed consent was taken. All the risks and complications were explained in detail. The patient was draped and prepped in the usual sterile fashion. Access was from previously left sheath which was a 6 Iranian by 55. Under sterile conditions, this was exchanged for another 6 Iranian by 55 cm sheath. Unilateral lower extremity angiogram was done. FINDINGS: moderate to severe diffuse disease in the right SFA with focal severe stenosis in the mid and distal segment. Good flow distally with a 2 vessel runoff with anterior tibial artery and deep peroneal artery with no residual thrombus. RECOMMENDATIONS: ARCHITECTURAL JOB CAPTAIN to the right SFA is recommended. INTERVENTIONAL DETAILS: the lesion was crossed with a 0.035 wire. The tip of the wire was placed in the distal popliteal artery. 5000 units of heparin was given. The patient continued on Plavix. We went in with an [place] 35 6 x 2 50 x 1 35 balloon and performed 2 inflations in the entire right SFA. The first inflation was for 6 merrick for 182 second was for 12 merrick for 181 seconds. post-balloon angioplasty angiogram showed excellent results with brisk flow to the with no residual stenosis and no residual thrombus. the long sheath was pulled back to the level of the bifurcation in the aorta and injection showed no damage to the bifurcation. The long sheath was taken out and exchanged for a short 6 Iranian sheath. Manual compression will be done when ACT is below 150 seconds. CONCLUSION: successful balloon angioplasty to the right superficial femoral artery with no residual stenosis and no Residual thrombus. stage procedure to the left SFA next week Continue dual antiplatelet therapy. Smoking cessation was strongly recommended. Discharge later today. Larry Cox MD, FACP, FACC, [facility] Vascular Medicine and Endovascular Interventions Chris COX MD Jan 18, 2020 10:58
[2020-01-18] MEDS ORDERED: PATIENT MAY USE OWN MEDS, ALL PO SCH (11:00)
[2020-01-18] MEDS ORDERED: CLOP75TA28 PO (11:01)
--- NOTE | 2020-01-18 11:01 | Discharge Inst-Post CATH ---
Discharge Inst-CATH/EP Problems Reviewed?: Yes Final Diagnosis severe bilateral lower extremity PAD Post Cardiac Cath/EP D/C Inst Follow Up/Plan staged procedure to be set up by Ninfa FALK from my office for the left lower extremity for next . <b>CARDIAC CATH/EP PROCEDURE DISCHARGE INSTRUCTIONS</b> ACTIVITY * Go Home directly and rest. * Limit activity of the leg (or wrist if it was used) for 7 days including aero bics, swimming, jogging, bicycling, etc. * Restrict stair-climbing for 7 days if possible, if not, climb up with your non-cath leg, then bring together on the same step. * Avoid lifting, pushing, pulling or excessive movement of the affected extremit y for 7 days. * Customary sexual activity may be resumed after 2 days-use caution not to use a position that strains or causes pain to the affected extremity. * No driving for 24 hours. * NO SMOKING. * Avoid straining for bowel movements for 7 days. * Gentle walking on level ground is allowed. * Returning to work will depend on the type of procedure and the results. Your doctor will discuss this with you. CALL YOUR DOCTOR FOR ANY OF THE FOLLOWING: *If bleeding from the puncture site occurs- Apply gentle pressure to site with clean cloth and call your doctor or EMS. * If a knot or lump forms under the skin, increases in size, or causes pain. * If bruising appears to be worsening or moving further down your leg instead of disappearing. * Temperature above 101 F. CARE OF YOUR GROIN INCISION; * Bruising or purple discoloration of the skin near the puncture site is common. * You may shower only, no bathtub bathing for 5 days. Be careful to avoid slipping as your leg may feel stiff. * If a closure device was used on your femoral artery, please see the attached guide regarding care of the device and your leg. * Leave dressing on FOR 24 hours. CARE OF YOUR WRIST INCISION; * Bruising or purple discoloration of the skin near the puncture site is common. * You may shower. * DO NOT submerge wrist. * Leave dressing on FOR 24 hours. Chris RUSSELL MD Jan 18, 2020 11:01
--- NOTE | 2020-01-18 11:06 | Cardiology Discharge Summary ---
Diagnosis/Chief Complaint Date of Admission 01/17/2020 Date of Discharge 01/18/2020 Admission Diagnosis acute on chronic limb ischemia Final/Discharge Diagnosis severe bilateral lower extremity PAD, successful right lower extremity intervention Chief Complaint/HPI Chief Complaint/HPI there is a 65-year-old gentleman with active smoking and previous bilateral lower extremity interventions. Presented with bilateral critical limb ischemia with acute on chronic critical limb ischemia of the right lower extremity. Urgent peripheral angiogram. Discharge Summary Procedures 01/17/2020: Peripheral angiogram showed bilateral SFA occlusions. Successful right SFA INVESTOR RELATIONS COORDINATOR. Acute/subacute occlusion of the right TP trunk noted. No improvement with INVESTOR RELATIONS COORDINATOR, intra-arterial heparin, intra-arterial nicardipine, intra- arterial TNKase. Therefore local overnight TNKase infusion given. 01/18/2020: Right lower extremity peripheral angiogram showed resolution of thrombus in the right TP trunk with excellent 2 vessel runoff with the anterior tibial and deep peroneal artery. However moderate to severe diffuse residual disease noted in the right SFA which was treated successfully with balloon angioplasty with excellent Discharge Physical Examination normal cardiovascular examination. Normal peripheral examination. Hospital Course Was the Problem List Reviewed?: Yes unremarkable. Pending Labs Laboratory Tests 01/18/20 04:15: White Blood Count 12.0, Red Blood Count 4.28, Hemoglobin 13.6, Hematocrit 41, Mean Corpuscular Volume 96, Mean Corpuscular Hemoglobin 32, Mean Corpuscular Hemoglobin Concent 33, Red Cell Distribution Width 15.3, Platelet Count 262, Mean Platelet Volume 10.8, Activated Partial Thromboplast Time 38, Sodium Level 135, Potassium Level 5.1, Chloride Level 106, Carbon Dioxide Level 18, Anion Gap 11, Blood Urea Nitrogen 15, Creatinine 0.78, Estimat Glomerular Filtration Rate > 60, BUN/Creatinine Ratio 19, Glucose Level 216, Calcium Level 7.8, Phosphorus Level 2.9, Magnesium Level 1.7 Discussion & Recommendations Discussion discharge took over 30 minutes to complete . Smoking cessation was strongly recommended. Patient will continue dual antiplatelet Therapy. Staged procedure to the left SFA next week. Follow up appt.: staged procedure to the left SFA next week. Dicharge Diet: Cardiac Diet Activity as Tolerated: Yes Home Medications Reviewed patient Home Medication Reconciliation performed by pharmacy medication reconciliations resource technician and/or nursing. Patients Allergies have been reviewed. Discharge Home Medications: Reviewed and agree with Discharge Medication list on patient's Discharge Instruction sheet Condition at discharge stable. Instructions to patient/family staged procedure to be set up by Ninfa FALK from my office for the left lower extremity for next . Chris RUSSELL MD Jan 18, 2020 11:06
[2020-01-18] MEDS: amLODIPine 5 MG (NORVASC) TAB PO SCH (12:43)
[2020-01-18] MEDS: buPROPion SR 150 MG (WELLBUTRIN SR) TAB PO SCH ×2 (12:43→20:18)
[2020-01-18] MEDS: SERTRALINE 50 MG (ZOLOFT) TABLET PO SCH (12:44)
[2020-01-18] MEDS: eZETimibe 10 MG (ZETIA) TABLET PO SCH (12:44)
[2020-01-18] MEDS: DexMEDEtomidine 250 ML DRIP 250 ML IV SCH ×2 (12:44→23:59)
--- NOTE | 2020-01-18 15:16 | NUR ---
patient attempting to sit up at this time et removing blood pressure cuff. This RN ran into patient room, et re-educated patient that he still has sheath in artery, et that he needed to remain flat in order to prevent complication. Patient stated "When is he going to have his surgery". This RN told patient that surgery was done this AM et that he is now in the recovery time. That he needed to remain flat for several more hours. That once he is able to sit up to 30 degrees, 2 hours after sheath is pulled, he can have some food. Patient then stated he was leaving at 7pm. This RN explained that physician was not d/c him at 7pm, that his flat bedrest would be over at that time, et he would be able to eat at that point. Patient huffed at this RN et mumbled something under breath, et layed head back down. Patient allowed this RN to reapply BP cuff.
--- NOTE | 2020-01-18 16:30 | NUR ---
THIS RN SITTING AT DESK OUTSIDE OF PATIENT ROOM, HEARD SOMETHING HIT WINDOW. THIS NURSE LOOKED IN PATIENT ROOM, PATIENT SITTING UP SLIGHTLY IN BED. THIS RN ENTERED ROOM, TOLD PATIENT HE NEEDED TO BE LAYING FLAT, ET RE-EDUCATED PATIENT ABOUT SHEATH ET IMPORTANCE OF LAYING FLAT. THIS NURSE ASKED PATIENT IF HE THREW SOMETHING AT WINDOW, PATIENT STATES YES HE DID.
--- NOTE | 2020-01-18 17:03 | NUR ---
THIS NURSE WALKED BACK FROM OTHER PATIENTS ROOM TO CHECK ON PATIENT. PATIENT HAD BED AT A 22 DEGREE ANGLE AT THE HEAD, ET HAD LEGS OF BED ELEVATED HIGH THEY WOULD GO, THIS RN AGAIN TOLD PATIENT HE NEEDED TO BE FLAT, RETURNED BED TO LOWEST POSITION, ON HEAD ET LEGS. PATIENT HUFFED AT THIS TIME, TURNED TV OFF ET STATED "ALRIGHT". PATIENT HAS NO C/O PAIN, OR DISCOMFORT. JUST "SICK OF LAYING IN BED AND WANTS SOME DAMN FOOD".
[2020-01-18] MEDS ORDERED: ATROPINE INJ 0.4 MG/ML SDV ONE (17:04)
[2020-01-19] VITALS (8 sets, daily range): BP systolic 125–160; BP diastolic 63–87
[2020-01-19 03:51] LABS: MAGNESIUM 1.8 MG/DL (1.6-2.4); PHOSPHORUS 3.1 MG/DL (2.3-4.7)
[2020-01-19 04:41] LABS: BASOPHILS # (AUTO) 0.1 10^3/uL (0.0-0.1); BASOPHILS % (AUTO) 0 % (0-10); EOSINOPHILS # (AUTO) 0.1 10^3/uL (0.0-0.3); EOSINOPHILS % (AUTO) 1 % (0-10); LYMPHOCYTES % (AUTO) 14 % (12-44); MEAN CORPUSCULAR HGB CONC 34 G/DL (32-36); MEAN CORPUSCULAR VOLUME 96 FL (80-99); MONOCYTES # (AUTO) 1.7 X 10^3 (0.0-1.0); MONOCYTES % (AUTO) 12 % (0-12); NEUTROPHILS % (AUTO) 72 % (42-75); RED CELL DISTRIBUTION WIDTH 14.7 % (10.0-14.5)
[2020-01-19 04:46] LABS: HEMOGLOBIN 13.5 G/DL (13.3-17.7); MEAN CORPUSCULAR HEMOGLOBIN 33 PG (25-34); WHITE BLOOD COUNT 15.2 10^3/uL (4.3-11.0)
[2020-01-19 04:47] LABS: HEMATOCRIT 40 % (40-54); PLATELET COUNT 263 10^3/uL (130-400)
[2020-01-19 04:49] LABS: ALANINE AMINOTRANSFERASE 16 U/L (0-55); ALBUMIN 3.3 GM/DL (3.2-4.5); ALKALINE PHOSPHATASE 63 U/L (40-136); BILIRUBIN,TOTAL 0.5 MG/DL (0.1-1.0); BUN/CREATININE RATIO 19; CALCIUM 7.8 MG/DL (8.5-10.1); CARBON DIOXIDE 15 MMOL/L (21-32); CHLORIDE 105 MMOL/L (98-107); CREATININE SERUM 0.81 MG/DL (0.60-1.30); GFR ESTIMATED > 60; GLUCOSE 296 MG/DL (70-105); POTASSIUM 4.8 MMOL/L (3.6-5.0); SODIUM 135 MMOL/L (135-145); TOTAL PROTEIN 5.6 GM/DL (6.4-8.2)
[2020-01-19] MEDS: MAGNESIUM 1 GM/100 ML IVPB 100 ML IV SCH (05:54)
[2020-01-19] MEDS: KCL 20 MEQ TAB (K-DUR) PO SCH (05:54)
[2020-01-19] MEDS: POTASSIUM CL 10MEQ/50ML IVPB 50 ML IV SCH (05:54)
--- NOTE | 2020-01-19 06:00 | NUR ---
PTS CATALAN CATHETER REMOVED AT THIS TIME.
[2020-01-19] MEDS: LEVOTHYROXINE 75 MCG (LEVOTHROID) TABLET PO SCH (06:12)
[2020-01-19] MEDS: inSUlin ASPART (NovoLOG) 1 UNIT/0.01 ML (CHARGE PER UNIT) SC SCH (06:16)
[2020-01-19] MEDS ORDERED: ASPIRIN E.C. 81 MG (ECOTRIN) TAB PO SCH (09:00)
[2020-01-19] MEDS ORDERED: CLOPIDOGREL 75 MG (PLAVIX) TABLET PO SCH (09:00)
[2020-01-19] MEDS: amLODIPine 5 MG (NORVASC) TAB PO SCH (09:11)
[2020-01-19] MEDS: eZETimibe 10 MG (ZETIA) TABLET PO SCH (09:11)
[2020-01-19] MEDS: SERTRALINE 50 MG (ZOLOFT) TABLET PO SCH (09:12)
[2020-01-19] MEDS: NS IV 1000 ML 1,000 ML IV SCH (09:16)
[2020-01-19] MEDS: CLOPIDOGREL 75 MG (PLAVIX) TABLET PO SCH (09:16)
[2020-01-19] MEDS: ASPIRIN E.C. 81 MG (ECOTRIN) TAB PO SCH (09:16)
[2020-01-19] MEDS: buPROPion SR 150 MG (WELLBUTRIN SR) TAB PO SCH (09:16)
--- NOTE | 2020-01-19 10:05 | NUR ---
THIS NURSE EDUCATED PT ON IMPORTANCE OF MONITORING HIS HEART RHYTHM, RATE, AND VITALS. PT STATED UNDERSTANDING AND STATED "I'M GOING HOME SO IT DOES NOT MATTER." PT REFUSED TO WEAR HEART MONITOR LEADS AND BLOOD PRESSURE CUFF. WILL CONTINUE TO MONITOR.
--- NOTE | 2020-01-19 10:50 | NUR ---
DR HORVATH NOTIFIED DR CUEVA IS DISCHARGING PT. DR HORVATH WOULD LIKE PT TO FOLLOW-UP WITH PRIMARY CARE DOCTOR IN 1-2 WEEKS.
[2020-01-19] MEDS ORDERED: inSUlin ASPART (NovoLOG) 1 UNIT/0.01 ML (CHARGE PER UNIT) SC SCH (11:00)
--- NOTE | 2020-01-19 11:00 | NUR ---
THIS NURSE EDUCATED PT ON DISCHARGE INSTRUCTIONS AND HOME MEDICATIONS. PT STATED UNDERSTANDING. PT ALSO EDUCATED TO FOLLOW UP WITH DR RUSSELL AND HIS PRIMARY CARE DOCTOR. PT STATED UNDERSTANDING. PT WALKED DOWN TO ENTRANCE BY PCT. PT TAKEN HOME BY FRIEND. Addendum: 01/19/20 at 1207 by CAYLA PECK RN THIS NURSE EDUCATED PT ON DISCHARGE INSTRUCTIONS AND HOME MEDICATIONS. PT STATED UNDERSTANDING. PT ALSO EDUCATED TO FOLLOW UP WITH DR RUSSELL AND HIS PRIMARY CARE DOCTOR. PT STATED UNDERSTANDING. PT WALKED DOWN TO ENTRANCE WITH PCT. PT TAKEN HOME BY FRIEND.
--- NOTE | 2020-01-19 12:07 | Progress Note - Cardiology ---
Cardiology SOAP Progress Note Subjective: No limb or groin pain or discomfort No cp or palp or syncope or shortness of breath No n/v/d States feels well and does not wish to stay in the hospital any longer Objective: I&O/Vital Signs 01/19/20 01/19/20 01/19/20 01/19/20 01:00 01:00 02:00 03:00 Pulse 60 62 56 62 Resp 20 17 13 B/P (MAP) 146/80 (102) 158/78 (104) 156/72 (100) Pulse Ox 95 96 96 O2 Delivery Room Air Room Air Room Air 01/19/20 01/19/20 01/19/20 01/19/20 04:00 04:30 05:00 06:00 Temp 36.9 Pulse 64 75 67 Resp 15 20 B/P (MAP) 160/68 (98) 153/73 (99) Pulse Ox 96 97 97 O2 Delivery Room Air Room Air Room Air 01/19/20 01/19/20 01/19/20 01/19/20 07:00 07:30 08:00 08:00 Temp 37.3 Pulse 78 80 Resp 17 B/P (MAP) 125/63 (83) Pulse Ox 95 O2 Delivery Room Air Room Air 01/19/20 11:05 Temp 37.3 Pulse 80 Resp 17 B/P (MAP) 125/63 Pulse Ox 95 O2 Delivery Room Air 01/19/20 00:00 Intake Total 1750 ml Output Total 1450 ml Balance 300 ml Weight (Pounds): 159 Weight (Ounces): 0.0 Weight (Calculated Kilograms): [id number] Constitutional: AAO x 3 Respiratory: chest is bilaterally symmetric, lungs clear to auscultation Cardiovascular: regular rate-rhythm, S1 and S2 Gastrointestional: soft, audible bowel sounds Extremities: normal range of motion, non-tender, normal inspection, other (no significant discoloration of the right fourth toe, which was previously discolored.), no lower extremity edema bilateral Neurologic/Psychiatric: oriented x 3, other (moves all of his limbs equally. Ambulates w/o difficulty or support) Results/Procedures: Labs Laboratory Tests 01/18/20 12:49: Glucometer 157H 01/18/20 16:30: Activated Partial Thromboplast Time 29 01/18/20 16:41: Glucometer 210H 01/19/20 03:03: White Blood Count 15.2H, Red Blood Count 4.14L, Hemoglobin 13.5, Hematocrit 40, Mean Corpuscular Volume 96, Mean Corpuscular Hemoglobin 33, Mean Corpuscular Hemoglobin Concent 34, Red Cell Distribution Width 14.7H, Platelet Count 263, Mean Platelet Volume 10.0, Neutrophils (%) (Auto) 72, Lymphocytes (%) (Auto) 14, Monocytes (%) (Auto) 12, Eosinophils (%) (Auto) 1, Basophils (%) (Auto) 0, Neutrophils # (Auto) 10.0H, Lymphocytes # (Auto) 2.0, Monocytes # (Auto) 1.7H, Eosinophils # (Auto) 0.1, Basophils # (Auto) 0.1, Sodium Level 135, Potassium Level 4.8, Chloride Level 105, Carbon Dioxide Level 15L, Anion Gap 15H, Blood U raffi Nitrogen 15, Creatinine 0.81, Estimat Glomerular Filtration Rate > 60, BUN/Creatinine Ratio 19, Glucose Level 296H, Calcium Level 7.8L, Corrected Calcium 8.4L, Phosphorus Level 3.1, Magnesium Level 1.8, Total Bilirubin 0.5, Aspartate Amino Transf (AST/SGOT) 13, Alanine Aminotransferase (ALT/SGPT) 16, Alkaline Phosphatase 63, Total Protein 5.6L, Albumin 3.3 Microbiology 01/17/20 MRSA Screen - Final, Complete MRSA not isolated Laboratory Tests 01/18/20 04:15 01/19/20 03:03 A/P: Assessment: Acute on chronic limb ischemia: severe bilateral lower extremity PAD. Interventions by Dr Cox. 01/17/2020: Peripheral angiogram showed bilateral SFA occlusions. Successful right SFA FOUNDRY WORKER. Acute/subacute occlusion of the right TP trunk noted. No improvement with FOUNDRY WORKER, intra-arterial heparin, intra-arterial nicardipine, intra-arterial TNKase. Therefore local overnight TNKase infusion given. 01/18/2020: Right lower extremity peripheral angiogram showed resolution of thrombus in the right TP trunk with excellent 2 vessel runoff with the anterior tibial and deep peroneal artery. However moderate to severe diffuse residual disease noted in the right SFA which was treated successfully with balloon angioplasty Active smoking, advised to quit Plan: * Advised to quit smoking * Meds and outpt f/u as recommended and written by MARIA TERESA Ahmadi MD FACP FAC CCDS Jan 19, 2020 12:07
== END 2020-01-19 11:00 | disposition home or self-care (01) ==
LOC: CATH 11:17 → ICU 16:14 → CATH 16:30 → ICU 16:30 → CATH 01-19 11:15
PROVIDERS: ADMIT Internal Medicine Interventional Cardiology; ATTEND Internal Medicine Interventional Cardiology
DX: I70.203 Unspecified atherosclerosis of native arteries of extremities, bilateral legs (principal); E10.51 Type 1 diabetes mellitus with diabetic peripheral angiopathy without gangrene; I10 Essential (primary) hypertension; E78.49 Other hyperlipidemia; Z79.899 Other long term (current) drug therapy; Z79.890 Hormone replacement therapy; I65.23 Occlusion and stenosis of bilateral carotid arteries; F17.210 Nicotine dependence, cigarettes, uncomplicated; Z11.2 Encounter for screening for other bacterial diseases
CPT/HCPCS: 37186; 37211; 37224 ×2; 37228; 75630; 75710; 75774; 80048; 80053 ×2; 80061; 82962 ×3; 83735 ×2; 84100 ×2; 85025; 85027 ×2; 85610; 85730 ×2; 87081; C1725 ×3; C1757; C1769 ×3; C1887; C1894 ×3; 36415

== ENCOUNTER → 2020-01-17 | Outpatient (CLI) | payer MEDICARE, OTHER ==
[~2020-01-17] MED LIST changes: +AMLO5TAB9 PO; +BUPR150T28 PO; +DICL75TA2 PO; +DexMEDEtomidine 250 ML DRIP 250 ML IV ONE; +EZET10TA49 PO; +HEParin (CATH LAB) 0 ML IV ONE; +LEVE250T5 PO; +LEVO75TA6 PO; +LIDOCAINE 1% INJ 20 ML 20 ML VIAL ONE; +MIDAZOLAM 5 MG/5 ML (VERSED) VIAL ONE; +NS IV 1000 ML 0 ML ONE; +NS IV 1000 ML 1,000 ML IV SCH; +QUIN40TA14 PO; +TIZA4TAB4 PO; +fentaNYL INJECTION 100 MCG/2 ML AMP ONE
== END ==
LOC: CARD 10:17
PROVIDERS: ATTEND Internal Medicine Interventional Cardiology
DX: R07.9 Chest pain, unspecified (principal)

== ENCOUNTER 2020-01-24 07:58 | Day surgery (SDC) | payer MEDICARE, OTHER ==
[~2020-01-24] VITALS: Ht 172.7 cm; Wt 72.7 kg
[2020-01-24] VITALS (7 sets, daily range): BP systolic 129–170; BP diastolic 45–86
[~2020-01-24 07:58] MED LIST changes: +AMLO5TAB9 PO; +BUPR150T28 PO; +DICL75TA2 PO; +EZET10TA49 PO; +LEVE250T5 PO; +LEVO75TA6 PO; +QUIN40TA14 PO; +TIZA4TAB4 PO
[2020-01-24] MEDS ORDERED: LIDOCAINE 1% INJ 20 ML 20 ML VIAL ONE (08:09)
[2020-01-24] MEDS ORDERED: NS IV 1000 ML 1,000 ML ONE (08:09)
[2020-01-24] MEDS ORDERED: HEParin (CATH LAB) 2,000 ML IV ONE (08:09)
[2020-01-24] MEDS ORDERED: NS IV 1000 ML 1,000 ML IV SCH (08:15)
[2020-01-24 08:53] LABS: HEMOGLOBIN 12.8 G/DL (13.3-17.7); MEAN PLATELET VOLUME 10.5 FL (7.4-10.4); RED CELL DISTRIBUTION WIDTH 15.2 % (10.0-14.5); WHITE BLOOD COUNT 7.7 10^3/uL (4.3-11.0)
[2020-01-24 09:01] LABS: ALBUMIN 3.6 GM/DL (3.2-4.5); CHLORIDE 104 MMOL/L (98-107); SODIUM 138 MMOL/L (135-145)
[2020-01-24 09:02] LABS: CALCIUM 8.4 MG/DL (8.5-10.1)
[2020-01-24 09:03] LABS: GLUCOSE 198 MG/DL (70-105)
[2020-01-24 09:04] LABS: CARBON DIOXIDE 24 MMOL/L (21-32)
[2020-01-24 09:05] LABS: BILIRUBIN,TOTAL 0.4 MG/DL (0.1-1.0)
[2020-01-24 09:07] LABS: ALKALINE PHOSPHATASE 57 U/L (40-136); CREATININE SERUM 0.79 MG/DL (0.60-1.30); GFR ESTIMATED > 60
[2020-01-24 09:08] LABS: BUN/CREATININE RATIO 23
[2020-01-24 09:10] LABS: ALANINE AMINOTRANSFERASE 16 U/L (0-55)
[2020-01-24 09:12] LABS: INR 0.9 (0.8-1.4); PROTHROMBIN TIME PATIENT 12.8 SEC (12.2-14.7)
[2020-01-24] MEDS ORDERED: fentaNYL INJECTION 100 MCG/2 ML AMP ONE (09:54)
[2020-01-24] MEDS ORDERED: MIDAZOLAM 5 MG/5 ML (VERSED) VIAL ONE (09:54)
[2020-01-24] MEDS ORDERED: HEParin 1000 UNIT/ML (10ML VIAL) FOR BOLUS ONE (09:55)
[2020-01-24] MEDS ORDERED: HYDROmorphone 2 MG/ML VIAL (DILAUDID) ONE (10:37)
[2020-01-24] MEDS ORDERED: diphenhydrAMINE 50 MG/ML INJ (BENADRYL) ONE (10:37)
--- NOTE | 2020-01-24 11:40 | Cardiac Procedure Note-CS/ASA ---
Pre-Procedure Note Pre-Op Procedure Note H&P Reviewed The H&P was reviewed, patient examined and no changes noted. Date H&P Reviewed: Jan 24, 2020 Time H&P Reviewed: 09:30 Conscious Sedation Pre-Proced Time 09:30 ASA Score 3 For ASA 3 and 4: Consider anesthesia and medical clearance. Also, for patients with a history of failed moderate sedation consider anesthesia. Airway Lungs Heart ASA score ASA 1: a normal healthy patient ASA 2: a patient with a mild systemic disease (mid diabetes, controlled hypertension, obesity ASA 3: a patient with a severe systemic disease that limits activity (angina, COPD, prior Myocardial infarction) ASA 4: a patient with an incapacitating disease that is a constant threat to life (CHF, renal failure) ASA 5: a moribund patient not expected to survive 24 hrs. (ruptured aneurysm) ASA 6: a declared brain- patient whose organs are being harvested. For emergent operations, add the letter E after the classification Mallampati Classification Grade 1 Sedation Plan Analgesia, Amnesia, Plan communicated to team members, Discussed options with patient/fam, Discussed risks with patient/fam The patient is an appropriate candidate to undergo the planned procedure, sedation, and anesthesia. The patient immediately re-assessed prior to indication. Chris RUSSELL MD Jan 24, 2020 11:40
--- NOTE | 2020-01-24 11:50 | Coronary Angiography & PCI ---
Peripheral Angio & Interv DATE OF SERVICE: 01/24/20 PRIMARY PHYSICIAN: Josephine Smith MD PERFORMING INTERVENTIONALIST: Dr. Larry Cox INDICATION: severe left lower extremity PAD. PREOPERATIVE INDICATION: severe left lower extremity PAD POSTOPERATIVE DIAGNOSIS: successful drug-coated balloon angioplasty to an occluded SFA. HISTORY: this is a 65-year-old gentleman with history of diabetes and active smoking who presented with acute on critical limb ischemia in the right lower extremity with occluded right SFA and acute/subacute occlusion of the right TP trunk treated with balloon angioplasty and overnight thrombolytics with significant resolution. Excellent results at the end. Patient also had an occluded left SFA stent. PROCEDURE PERFORMED: 1. Right lower extremity unilateral angiogram. 2. lower extremity unilateral angiogram. 3. Drug-coated balloon angioplasty to left SFA. SPECIMENS: None. ANESTHESIA: Conscious sedation. BLOOD LOSS: 20 mL. COMPLICATIONS: None. CONTRAST USED: 80 ml. FLUOROSCOPY DOSE: 83 Mgy. FLUOROSCOPY TIME: 10.2 minutes. ANTICOAGULATION: IV heparin DESCRIPTION OF PROCEDURE: The patient was brought to the laborer stores after informed consent was taken. All the risks and complications were explained in detail. . Discussed all the risks associated with drug-coated balloons. Informed consent was taken to use drug c oated balloons. The patient was draped and prepped in the usual sterile fashion. Access was gained right femoral artery with a 6 Macedonian sheath. Right unilateral angiogram was done through the right femoral sheath. We then did a crossover with the rim catheter. Left lower extremity unilateral angiogram was done. FINDINGS: 1. Right lower extremity: Mild diffuse disease with no focal severe stenosis in the right WALLPAPER EMBOSSER HELPER, SFA, popliteal artery with 2 vessel runoff low the knee. 2. Left lower extremity: Occluded left SFA stent with 2 vessel runoff below the knee. RECOMMENDATIONS: PRIVATE DETECTIVE to left SFA stent is recommended. INTERVENTIONAL DETAILS: patient was on uninterrupted Plavix. IV heparin given. Exchange done for a long 6 Macedonian by 55 cm sheath. Unilateral angiogram done. We then took a command 0.018 ST wire and 6.0 x 120 mm balloon. We were able to cross through the occlusion. Distally the wire was intraluminal. Multiple balloon angioplasties were done just distal to the stent, in the stent and just proximal to the stent. Distal to proximal, these were done at 12 merrick for 63 seconds, 12 merrick for 54 seconds, 12 merrick for 182 seconds, 12 merrick for 76 seconds, 12 merrick for 182 respectively.the balloon was then taken out and we went in with the Lutonix 6 x 150 x 130 drug-coated balloon and performed one inflation at 8 merrick for 181 seconds. post-angiogram showed excellent results with brisk flow down the left lower extremity. The sheath was exchanged and minx closure done. Patient tolerated procedure well and did not have any complications. CONCLUSION: 1. Occluded left SFA stent treated successfully with drug-coated balloon angioplasty. 2. Smoking cessation was strongly recommended. 3. Patient will be kept overnight for hydration and discharged in the morning. Larry Cox MD, FACP, FACC, [facility] Vascular Medicine and Endovascular Interventions Chris COX MD Jan 24, 2020 11:50
[2020-01-24] MEDS ORDERED: PATIENT MAY USE OWN MEDS, ALL PO SCH (12:00)
[2020-01-24] MEDS ORDERED: inSUlin ASPART (NovoLOG) 1 UNIT/0.01 ML (CHARGE PER UNIT) SQ SCH (13:15)
[2020-01-24] MEDS: NS IV 1000 ML 1,000 ML IV SCH ×2 (15:26→23:17)
--- NOTE | 2020-01-24 16:58 | NUR ---
PT STANDING UP IN ROOM FULLY DRESSED REQUESTING HIS IV BE REMOVED. PT UPSET STATES "MY INSULIN PUMP ISN'T WORKING" THIS RN ASKED PT IF SOMEONE COULD GO GET HIS PUMP AND BRING TO HOSPITAL PT STATES " NO, BUT I CAN LEAVE AND COME BACK." PT INFORMED BY THIS RN THAT IS NOT AN OPTION, THIS RN CHECKED PT'S BLOOD SUGAR AND NOT AT 366 THIS RN ASKED PT HOW MUCH INSULIN HE WOULD TAKE PER PUMP AND PT STATED 9 UNITS OF NOVOLOG. 9 UNITS ADMINISTERED BY THIS RN. PT SITTING UP IN CHAIR AT THIS TIME SPEAKING ON PHONE. THIS RN WILL ENCOURAGE PT TO STAY AND WILL ATTEMPT TO PLACE PT BACK ON TELEMETRY. Addendum: 01/24/20 at 1726 by FLACA MILLER RN DR RUSSELL NOTIFIED OF ABOVE AND ORDERS RECEIVED TO CONSULT DR MELGOZA. DR MELGOZA NOTIFIED AND NEW ORDERS RECEIVED TO CHECK BLOOD SUGARS PRN, AND PLACE PT ON NOVOLOG SLIDING SCALE B,
[2020-01-24] MEDS ORDERED: inSUlin ASPART (NovoLOG) 1 UNIT/0.01 ML (CHARGE PER UNIT) SC SCH ×2 (17:00→17:30)
[2020-01-24] MEDS ORDERED: BUPROPION HCL 150 MG PO SCH (21:00)
[2020-01-25 00:28] VITALS: BP 148/71
--- NOTE | 2020-01-25 00:47 | NUR ---
This RN went to check pts midnight vitals, pt requested I check his blood sugar at this time as well. Blood sugar came back as 315, pt states "this is not going to work, I need to go home." Pt had previously taken out his IV and was fully dressed. This RN discussed the risks of leaving AMA and the benefits of staying in the hospital, Pt states "there is not anything you guys can do for me." This RN encouraged pt to call family and have somebody come pick him up, pt states "my truck is parked right outside and that is how I am getting home." AMA form signed at this time and pt walked to hospital doors.
[2020-01-25] MEDS ORDERED: CLOPIDOGREL 75 MG (PLAVIX) TABLET PO SCH ×2 (09:00)
[2020-01-25] MEDS ORDERED: LEVETIRACETAM 500 MG PO SCH (09:00)
[2020-01-25] MEDS ORDERED: QUINAPRIL HCL 40 MG PO SCH (09:00)
[2020-01-25] MEDS ORDERED: eZETimibe 10 MG (ZETIA) TABLET PO SCH (09:00)
[2020-01-25] MEDS ORDERED: SERTRALINE 50 MG (ZOLOFT) TABLET PO SCH (09:00)
[2020-01-25] MEDS ORDERED: ASPIRIN E.C. 81 MG (ECOTRIN) TAB PO SCH (09:00)
[2020-01-25] MEDS ORDERED: amLODIPine 5 MG (NORVASC) TAB PO SCH (09:00)
[2020-01-25] MEDS ORDERED: LEVOTHYROXINE 75 MCG (LEVOTHROID) TABLET PO SCH (09:00)
== END 2020-01-25 00:55 | disposition left against medical advice (07) ==
LOC: CATH 07:58 → ICU 11:55 → CATH 01-25 00:55
PROVIDERS: ATTEND Internal Medicine Interventional Cardiology
DX: E11.51 Type 2 diabetes mellitus with diabetic peripheral angiopathy without gangrene (principal); I10 Essential (primary) hypertension; E78.5 Hyperlipidemia, unspecified; I65.23 Occlusion and stenosis of bilateral carotid arteries; F17.210 Nicotine dependence, cigarettes, uncomplicated; Z79.899 Other long term (current) drug therapy; Z88.5 Allergy status to narcotic agent; Z88.8 Allergy status to other drugs, medicaments and biological substances; Z80.1 Family history of malignant neoplasm of trachea, bronchus and lung
CPT/HCPCS: 37224; 75710 ×2; 80053; 82962 ×2; 85027; 85610; 85730; 87081; C1725; C1760; C1769 ×2; C1887; C1894 ×2; C2623; 36415

== ENCOUNTER → 2020-02-21 | Outpatient (CLI) | payer MEDICARE ==
[~2020-02-21] VITALS: Ht 175 cm; Wt 74.0 kg
[~2020-02-21] MED LIST changes: +CATHETER FLUSH 10 ML SYR IV PRN; +REGADENOSON 0.4 MG/5 ML SYR (LEXISCAN) IV ONE
[2020-02-21 09:12] VITALS: BP 176/93
--- NOTE | 2020-02-22 16:22 | Cardiology Stress Test Report ---
Stress Test Report Type of NM Stress Test: Test Type: LEXISCAN 0.4MG/5ML Date of Procedure/Referring: Date of Procedure: Feb 21, 2020 PCP Chris Cox MD Admitting Physician Josephine Smith MD Indications: Chest pressure Baseline Heart Rate: 65 Baseline Blood Pressure: Blood Pressure Systolic: 176 Blood Pressure Diastolic: 93 Baseline EKG: Baseline EKG: sinus rhythm Summary & Conclusion: Summary: The patient was brought to the stress lab after informed consent was taken. Stress test was performed according to the Lexiscan protocol. 0.4 mg of IV Lexiscan was given. Low-grade exercise was performed. Baseline EKG showed sinus rhythm at 65 bpm and blood pressure 178/76 mmHg. Maximum heart rate of 69 bpm and blood pressure 169/81 mmHg. Patient did not have any chest pain, arrhythmias or ST segment changes during the stress test. 10.42 mCi of Myoview were given for rest imaging and 32 mCi of Myoview given for stress imaging. Transient ischemic dilatation score 1.16, EF 47 percent. Normal wall motion. Moderate sized intermediate intensity distal septal/anterior/apical reversible defect. SSS 18, SRS 9, SDS 6. Conclusion: Pharmacological stress test was negative for ischemia. Normal LV function with no wall motion abnormalities. Evidence of anterior, septal and apical ischemia. Chris COX MD Feb 22, 2020 16:22
== END ==
LOC: CARD 08:15
PROVIDERS: ATTEND Internal Medicine Interventional Cardiology
DX: R07.89 Other chest pain (principal); I73.9 Peripheral vascular disease, unspecified; E10.9 Type 1 diabetes mellitus without complications
CPT/HCPCS: 78452; 93017; A9502

== ENCOUNTER → 2020-03-06 | Day surgery (SDC) | payer MEDICARE ==
[~2020-03-06] VITALS: Ht 172.7 cm; Wt 76.4 kg
[~2020-03-06] MED LIST changes: -CATHETER FLUSH 10 ML SYR IV PRN; +HEParin (CATH LAB) 2,000 ML IV ONE; +HEParin DRIP 25000 UNIT/500ML 500 ML IV ONE; +LIDOCAINE 1% INJ 20 ML 20 ML VIAL ONE; +MIDAZOLAM 5 MG/5 ML (VERSED) VIAL ONE; +NS IV 1000 ML 1,000 ML IV SCH; +NS IV 1000 ML 1,000 ML ONE; +PATIENT MAY USE OWN MEDS, ALL PO SCH; -REGADENOSON 0.4 MG/5 ML SYR (LEXISCAN) IV ONE; +diphenhydrAMINE 50 MG/ML INJ (BENADRYL) ONE; +fentaNYL INJECTION 100 MCG/2 ML AMP ONE
[2020-03-06 07:29] VITALS: BP 170/95
[2020-03-06 07:42] LABS: HEMOGLOBIN 13.2 g/dL (13.3-17.7); MEAN PLATELET VOLUME 9.8 fL (9.0-12.2)
[2020-03-06 07:55] LABS: INR 0.8 (0.8-1.4); PROTHROMBIN TIME PATIENT 11.8 SEC (12.2-14.7)
[2020-03-06 08:05] LABS: ALANINE AMINOTRANSFERASE 22 U/L (0-55); ALKALINE PHOSPHATASE 67 U/L (40-136); BILIRUBIN,TOTAL 0.3 MG/DL (0.1-1.0); BUN/CREATININE RATIO 25; CALCIUM 8.8 MG/DL (8.5-10.1); CARBON DIOXIDE 23 MMOL/L (21-32); CHLORIDE 105 MMOL/L (98-107); CREATININE SERUM 1.08 MG/DL (0.60-1.30); GFR ESTIMATED > 60; GLUCOSE 293 MG/DL (70-105); POTASSIUM 4.3 MMOL/L (3.6-5.0); SODIUM 141 MMOL/L (135-145); TOTAL PROTEIN 6.3 GM/DL (6.4-8.2)
[2020-03-06 09:45] VITALS: BP 150/72
[2020-03-06 10:01] VITALS: BP 153/74
[2020-03-06 10:16] VITALS: BP 148/80
[2020-03-06 10:31] VITALS: BP 146/72
[2020-03-06 10:42] VITALS: BP 145/74
--- NOTE | 2020-03-06 10:55 | NUR ---
ems here for transport to [place]. report was called to sophie at [id number]
--- NOTE | 2020-03-06 11:11 | Coronary Angiography Report ---
Coronary Angiography Report DATE OF PROCEDURE: 03/06/20 INDICATION: Shortness of breath, abnormal nuclear stress test, left lower extremity critical limb ischemia. PREOPERATIVE DIAGNOSIS: Shortness of breath, abnormal nuclear stress test, left lower extremity critical limb ischemia. POSTOPERATIVE DIAGNOSIS: Severe left main disease HISTORY: This is a 65-year-old gentleman with history of active smoking and significant PAD. Recent bilateral lower extremity intervention. Presented to the office with shortness of breath and recurrent left lower extremity resting discomfort. Abnormal ARMANDO. Nuclear stress test showed evidence of anterior ischemia. Therefore, the patient was scheduled for coronary angiography. PROCEDURES PERFORMED: 1.Coronary angiography. 2.Left heart catheterization. 3. Abdominal aortogram with bilateral lower extremity runoff. COMPLICATIONS: None. SPECIMENS: None. ESTIMATED BLOOD LOSS: 10 mL ANESTHESIA: Conscious sedation ANTICOAGULATION: None. CONTRAST: 100 mL. FLUOROSCOPY: 3.0 minutes. FLOUROSCOPY DOSE: 476 mgy. PROCEDURE DETAILS: The patient is a 65 male and was brought to the greenskeeper laborer after informed consent was taken. All the risks and complications were explained in detail; this included the risk of bleeding, vascular damage, stroke, IL and even . The patient was draped and prepped in the usual sterile fashion. Access was gained in the right femoral artery with a 5 Kyrgyz sheath. Coronary angiography and left heart catheterization was performed with a JR4 and JL4 catheter. Abdominal aortogram and bilateral lower extremity runoff was performed with a pigtail catheter. FINDINGS: 1.Left main: Severe distal left main disease. Stenosis severity 80 percent. 2.LAD: Heavily calcified artery. Total occlusion in the proximal segment with left to left collaterals. Decent sized artery in the mid/distal segment. 3.Left circumflex artery: Moderate proximal stenosis. Stenosis severity 40-50 percent. 4.RCA: Small nondominant artery. 5.Left heart catheterization: LV pressure 127/-4 mmHg. LVEDP 5 mmHg. Aortic pressure 128/60 mmHg. No gradient across the aortic valve. Normal EF with no wall motion abnormalities. 6. Abdominal aortogram with bilateral lower extremity runoff: Mild distal abdominal disease. Patent bilateral renal arteries. No significant disease in bilateral common/external iliac arteries. Patent stents in bilateral SFAs. Patent bilateral popliteal arteries. Two-vessel runoff in the right lower extremity below the knee. One and a half vessel runoff in the left lower extremity below the knee which is a deep peroneal artery which supplies the foot and anterior tibial artery in the upper part of the calf. CONCLUSIONS: Severe left main disease and occluded LAD. Revascularization with bypass surgery is recommended. I spoke to Dr. Menendez at [facility] and will transfer the patient today. IV heparin started. Spoke to the patient and daughter. Patent bilateral SFA stents. Distal disease noted in the left lower extremity. Medical therapy for now. Larry Cox MD, FACP, FACC, [facility] Interventional Cardiology Chris COX MD Mar 06, 2020 11:11
--- NOTE | 2020-03-06 11:14 | Discharge Inst-Post CATH ---
Discharge Inst-CATH/EP Problems Reviewed?: Yes Final Diagnosis Severe left main disease with occluded LAD. Cardiac surgery referral. Post Cardiac Cath/EP D/C Inst Follow Up/Plan Referred for cardiac surgery to [facility]. <b>CARDIAC CATH/EP PROCEDURE DISCHARGE INSTRUCTIONS</b> ACTIVITY * Go Home directly and rest. * Limit activity of the leg (or wrist if it was used) for 7 days including aerobics, swimming, jogging, bicycling, etc. * Restrict stair-climbing for 7 days if possible, if not, climb up with your non-cath leg, then bring together on the same step. * Avoid lifting, pushing, pulling or excessive movement of the affected extremity for 7 days. * Customary sexual activity may be resumed after 2 days-use caution not to use a position that strains or causes pain to the affected extremity. * No driving for 24 hours. * NO SMOKING. * Avoid straining for bowel movements for 7 days. * Gentle walking on level ground is allowed. * Returning to work will depend on the type of procedure and the results. Your doctor will discuss this with you. CALL YOUR DOCTOR FOR ANY OF THE FOLLOWING: *If bleeding from the puncture site occurs- Apply gentle pressure to site with clean cloth and call your doctor or EMS. * If a knot or lump forms under the skin, increases in size, or causes pain. * If bruising appears to be worsening or moving further down your leg instead of disappearing. * Temperature above 101 F. CARE OF YOUR GROIN INCISION; * Bruising or purple discoloration of the skin near the puncture site is common. * You may shower only, no bathtub bathing for 5 days. Be careful to avoid slipping as your leg may feel stiff. * If a closure device was used on your femoral artery, please see the attached guide regarding care of the device and your leg. * Leave dressing on FOR 24 hours. CARE OF YOUR WRIST INCISION; * Bruising or purple discoloration of the skin near the puncture site is common. * You may shower. * DO NOT submerge wrist. * Leave dressing on FOR 24 hours. Chris RUSSELL MD Mar 06, 2020 11:14
--- NOTE | 2020-03-06 11:17 | Cardiology Discharge Summary ---
Diagnosis/Chief Complaint Date of Admission 03/06/2020 Date of Discharge 03/06/2020 Admission Diagnosis Shortness of breath, abnormal nuclear stress test, left lower extremity critical limb ischemia Final/Discharge Diagnosis Severe left main disease, occluded LAD, cardiac surgery referral Chief Complaint/HPI Chief Complaint/HPI 65-year-old gentleman with a history of active smoking. He also has history of PAD. Presented with shortness of breath. Nuclear stress test showed anterior ischemia. Resting left lower extremity discomfort with abnormal ARMANDO. Discharge Summary Procedures Coronary angiography showed severe left main disease with occluded LAD. Left to left collaterals with reasonable filling of the LAD. Nondominant small RCA. Patent bilateral SFA stents. Distal below the knee disease in the left lower extremity. Discharge Physical Examination Normal Hospital Course Was the Problem List Reviewed?: Yes Unremarkable. Awaiting transfer to [facility]. Pending Labs Laboratory Tests 03/06/20 07:37: White Blood Count 8.0, Red Blood Count 4.13, Hemoglobin 13.2, Hematocrit 41, Mean Corpuscular Volume 98, Mean Corpuscular Hemoglobin 32, Mean Corpuscular Hemoglobin Concent 33, Red Cell Distribution Width 14.4, Platelet Count 362, Mean Platelet Volume 9.8, Prothrombin Time 11.8, INR Comment 0.8, Activated Partial Thromboplast Time 28, Sodium Level 141, Potassium Level 4.3, Chloride Level 105, Carbon Dioxide Level 23, Anion Gap 13, Blood Urea Nitrogen 27, Creatinine 1.08, Estimat Glomerular Filtration Rate > 60, BUN/Creatinine Ratio 25, Glucose Level 293, Calcium Level 8.8, Corrected Calcium 8.8, Total Bilirubin 0.3, Aspartate Amino Transf (AST/SGOT) 17, Alanine Aminotransferase (ALT/SGPT) 22, Alkaline Phosphatase 67, Total Protein 6.3, Albumin 4.0 Discussion & Recommendations Discussion Discussed with patient and daughter. Follow up appt.: Follow-up after cardiac surgery. Dicharge Diet: Cardiac Diet Activity as Tolerated: Yes Home Medications Reviewed patient Home Medication Reconciliation performed by pharmacy medication reconciliations construction services technician and/or nursing. Patients Allergies have been reviewed. Discharge Home Medications: Reviewed and agree with Discharge Medication list on patient's Discharge Instruction sheet Condition at discharge Guarded prognosis. Instructions to patient/family Referred for cardiac surgery to [facility]. Chris RUSSELL MD Mar 06, 2020 11:17
== END ==
LOC: CATH 09:00
PROVIDERS: ATTEND Internal Medicine Interventional Cardiology
DX: I25.10 Atherosclerotic heart disease of native coronary artery without angina pectoris (principal); I65.23 Occlusion and stenosis of bilateral carotid arteries; I10 Essential (primary) hypertension; E78.49 Other hyperlipidemia; E10.51 Type 1 diabetes mellitus with diabetic peripheral angiopathy without gangrene; R94.39 Abnormal result of other cardiovascular function study; Z79.899 Other long term (current) drug therapy; Z88.5 Allergy status to narcotic agent; Z88.8 Allergy status to other drugs, medicaments and biological substances; F17.210 Nicotine dependence, cigarettes, uncomplicated; Z80.1 Family history of malignant neoplasm of trachea, bronchus and lung
CPT/HCPCS: 75630; 80053; 85027; 85610; 85730; 87081; 93458; C1760; C1894; 36415

== ENCOUNTER 2020-07-30 05:53 | Emergency (ER) | payer MEDICARE, OTHER ==
[~2020-07-30] VITALS: Ht 172.7 cm; Wt 81.6 kg
[~2020-07-30 05:53] MED LIST changes: +AMLO-250 PO; -AMLO5TAB9 PO; -HEParin (CATH LAB) 2,000 ML IV ONE; -HEParin DRIP 25000 UNIT/500ML 500 ML IV ONE; -LIDOCAINE 1% INJ 20 ML 20 ML VIAL ONE; -MIDAZOLAM 5 MG/5 ML (VERSED) VIAL ONE; -NS IV 1000 ML 1,000 ML IV SCH; -NS IV 1000 ML 1,000 ML ONE; -PATIENT MAY USE OWN MEDS, ALL PO SCH; -diphenhydrAMINE 50 MG/ML INJ (BENADRYL) ONE; -fentaNYL INJECTION 100 MCG/2 ML AMP ONE
[2020-07-30 06:51] LABS: BASOPHILS # (AUTO) 0.1 10^3/uL (0.0-0.1); BASOPHILS % (AUTO) 0 % (0-10); EOSINOPHILS % (AUTO) 0 % (0-10); HEMATOCRIT 44 % (40-54); HEMOGLOBIN 14.4 g/dL (13.3-17.7); LYMPHOCYTES # (AUTO) 1.9 10^3/uL (1.0-4.0); LYMPHOCYTES % (AUTO) 14 % (12-44); MEAN CORPUSCULAR HEMOGLOBIN 31 pg (25-34); MEAN CORPUSCULAR HGB CONC 33 g/dL (32-36); MEAN CORPUSCULAR VOLUME 93 fL (80-99); MEAN PLATELET VOLUME 10.3 fL (9.0-12.2); MONOCYTES # (AUTO) 1.9 10^3/uL (0.0-1.0); MONOCYTES % (AUTO) 14 % (0-12); NEUTROPHILS # (AUTO) 9.4 10^3/uL (1.8-7.8); NEUTROPHILS % (AUTO) 70 % (42-75); PLATELET COUNT 350 10^3/uL (130-400); WHITE BLOOD COUNT 13.4 10^3/uL (4.3-11.0)
[2020-07-30 06:59] LABS: CHLORIDE 99 MMOL/L (98-107); POTASSIUM 4.1 MMOL/L (3.6-5.0); SODIUM 134 MMOL/L (135-145)
[2020-07-30 07:01] LABS: CALCIUM 8.8 MG/DL (8.5-10.1)
[2020-07-30 07:02] LABS: GLUCOSE 284 MG/DL (70-105)
[2020-07-30 07:03] LABS: CARBON DIOXIDE 21 MMOL/L (21-32)
[2020-07-30 07:04] LABS: BILIRUBIN,TOTAL 0.6 MG/DL (0.1-1.0)
[2020-07-30 07:05] LABS: ALKALINE PHOSPHATASE 77 U/L (40-136)
[2020-07-30 07:06] LABS: CREATININE SERUM 0.93 MG/DL (0.60-1.30); GFR ESTIMATED > 60
[2020-07-30 07:07] LABS: BUN/CREATININE RATIO 15
[2020-07-30 07:08] LABS: ALANINE AMINOTRANSFERASE 17 U/L (0-55)
--- NOTE | 2020-07-30 07:08 | ED General ---
General Chief Complaint: Skin/Wound Problems Stated Complaint: RT HAND SWOLLEN,SORE Nursing Triage Note: TO ED VIA POV AND AMBULATORY TO ROOM 6 WITH C/O RIGHT HAND SWELLING SINCE Tuesday07/27/20. PT STATES, "I WENT TO SOME WALK IN CLINIC AND THEY GAVE ME AMOXICILLIN OR SOMETHING LIKE THAT FOR A CAT SCRATCH". STATES HE STARTED THE ANTIBIOTICS ON TUESDAY EVENING. Nursing Sepsis Screen: No Definite Risk Source of Information: Patient Exam Limitations: No Limitations History of Present Illness Date Seen by Provider: Jul 30, 2020 Time Seen by Provider: 06:22 Initial Comments This 65-year-old gentleman presents to the emergency room with complaints of pain, swelling, and erythema in the right hand and wrist. This started on July 27. Symptoms started on the dorsum of the proximal hand near where he had cat scratches. He was seen and started on what sounds like amoxicillin or Augmentin on July 28. He has had 3 or 4 doses, but symptoms have become progressively worse. He denies fevers. He is a type I diabetic but has not been checking his blood sugars recently. He doses his insulin based on carb counts. 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 Sensation and capillary refill are intact. He declines anything for treatment of pain at this time. He describes no history of gout. Allergies and Home Medications Allergies Coded Allergies: lamotrigine (Verified Allergy, Unknown, 11/22/17) morphine (Verified Allergy, Unknown, 11/22/17) BY MOUTH CAUSES UPSET STOMACH Home Medications Amlodipine Besylate 5 Mg Tablet, 5 MG PO DAILY, (Reported) Azithromycin 250 Mg Tablet, 250 MG PO UD TAKE 2 TABLETS ON DAY ONE THEN TAKE 1 TABLET DAILY FOR FOUR MORE DAYS Prescribed by: JOSH BULL on 07/30/20 0825 Bupropion HCl 150 Mg Tablet.er, 150 MG PO BID, (Reported) Clopidogrel Bisulfate 75 Mg Tablet, 75 MG PO DAILY Prescribed by: Chris RUSSELL on 01/18/20 1101 Doxycycline Hyclate 100 Mg Tablet, 100 MG PO BID Prescribed by: JOSH BULL on 07/30/20 0825 Ezetimibe 10 Mg Tablet, 10 MG PO DAILY, (Reported) Insulin Aspart 100 Unit/1 Ml Susp, SQ PER INSULIN PUMP, (Reported) Levetiracetam 250 Mg Tablet, 500 MG PO DAILY, (Reported) Levothyroxine Sodium 75 Mcg Tablet, 75 MCG PO DAILY, (Reported) Quinapril HCl 40 Mg Tablet, 40 MG PO DAILY, (Reported) Sertraline HCl 50 Mg Tablet, 50 MG PO DAILY, (Reported) Patient Home Medication List Home Medication List Reviewed: Yes Review of Systems Review of Systems Constitutional: no symptoms reported EENTM: no symptoms reported Respiratory: no symptoms reported Cardiovascular: no symptoms reported Gastrointestinal: no symptoms reported Genitourinary: no symptoms reported Musculoskeletal: see HPI Skin: see HPI Psychiatric/Neurological: No Symptoms Reported Hematologic/Lymphatic: No Symptoms Reported Past Hpgvcac-Hvyuhe-Imakor Hx Past Med/Social Hx: Reviewed Nursing Past Med/Soc Hx Patient Social History Alcohol Use: Occasionally Uses Number of Drinks Today: AA Alcohol Beverage of Choice: Beer Smoking Status: Former Smoker Type Used: Cigarettes Former Smoker, Quit: Feb 27, 2020 Recent Infectious Disease Expo: No Recent Hopitalizations: No Immunizations Up To Date Date of Influenza Vaccine: Mar 28, 2015 Past Medical History Surgeries: Yes (HERNIA, DISK) CABG, Orthopedic Respiratory: No Cardiac: Yes High Cholesterol, Hypertension Neurological: Yes Seizure Disorder Genitourinary: No Gastrointestinal: No Musculoskeletal: Yes Chronic Back Pain Endocrine: Yes Diabetes, Insulin dep Cancer: No Psychosocial: No Integumentary: No Blood Disorders: No Adverse Reaction/Blood Tranf: No Family Medical History No Pertinent Family Hx Physical Exam Vital Signs Vital Signs - First Documented 07/30/20 07/30/20 06:20 10:45 Temp 36.7 Pulse 78 Resp 18 B/P (MAP) 168/90 (116) Pulse Ox 95 O2 Delivery Room Air Capillary Refill : Less Than 3 Seconds Height, Weight, BMI Height: 5'9.00" Weight: 159lbs. 0.0oz. 72.225498vo; 27.00 BMI Method:Stated General Appearance: WD/WN, Mild Distress HEENT: Normal ENT Inspection Neck: Normal Inspection Respiratory: Lungs Clear, Normal Breath Sounds, No Accessory Muscle Use Cardiovascular: Regular Rate, Rhythm, No Edema, No Murmur Extremity: Other (Right hand and wrist edematous and mildly erythematous. There is tenderness to palpation throughout the hand and wrist. There is pain with any range of motion in the hand and wrist. Capillary refill and sensation distally intact. 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 Norm as Tested Skin: Normal Color, Warm/Dry, Erythema (Right hand and wrist) Focused Exam Lactate Level 07/30/20 06:25: Lactic Acid Level 1.05 Lactic Acid Level Laboratory Tests Test 07/30/20 06:25 Lactic Acid Level 1.05 MMOL/L (0.50-2.00) Progress/Results/Core Measures Suspected Sepsis Recent Fever Within 48 Hours: No Infection Criteria Present: Suspected New Infection New/Unexplained Altered Menta: No Sepsis Screen: No Definite Risk SIRS Temperature: Pulse: 78 Respiratory Rate: 18 Laboratory Tests 07/30/20 06:25: White Blood Count 13.4H Blood Pressure 168 /90 Mean: 116 07/30/20 06:25: Lactic Acid Level 1.05 Laboratory Tests 07/30/20 06:25: Creatinine 0.93, Platelet Count 350, Total Bilirubin 0.6 Results/Orders Lab Results Laboratory Tests Test 07/30/20 06:25 07/30/20 06:35 Range/Units White Blood Count 13.4 H 4.3-11.0 10^3/uL Red Blood Count 4.70 4.30-5.52 10^6/uL Hemoglobin 14.4 13.3-17.7 g/dL Hematocrit 44 40-54 % Mean Corpuscular Volume 93 80-99 fL Mean Corpuscular Hemoglobin 31 25-34 pg Mean Corpuscular Hemoglobin Concent 33 32-36 g/dL Red Cell Distribution Width 15.1 H 10.0-14.5 % Platelet Count 350 130-400 10^3/uL Mean Platelet Volume 10.3 9.0-12.2 fL Immature Granulocyte % (Auto) 1 % Neutrophils (%) (Auto) 70 42-75 % Lymphocytes (%) (Auto) 14 12-44 % Monocytes (%) (Auto) 14 H 0-12 % Eosinophils (%) (Auto) 0 0-10 % Basophils (%) (Auto) 0 0-10 % Neutrophils # (Auto) 9.4 H 1.8-7.8 10^3/uL Lymphocytes # (Auto) 1.9 1.0-4.0 10^3/uL Monocytes # (Auto) 1.9 H 0.0-1.0 10^3/uL Eosinophils # (Auto) 0.0 0.0-0.3 10^3/uL Basophils # (Auto) 0.1 0.0-0.1 10^3/uL Immature Granulocyte # (Auto) 0.1 0.0-0.1 10^3/uL Sodium Level 134 L 135-145 MMOL/L Potassium Level 4.1 3.6-5.0 MMOL/L Chloride Level 99 98-107 MMOL/L Carbon Dioxide Level 21 21-32 MMOL/L Anion Gap 14 5-14 MMOL/L Blood Urea Nitrogen 14 7-18 MG/DL Creatinine 0.93 0.60-1.30 MG/DL Estimat Glomerular Filtration Rate > 60 BUN/Creatinine Ratio 15 Glucose Level 284 H 70-105 MG/DL Lactic Acid Level 1.05 0.50-2.00 MMOL/L Uric Acid 3.7 2.6-7.2 MG/DL Calcium Level 8.8 8.5-10.1 MG/DL Corrected Calcium 8.8 8.5-10.1 MG/DL Total Bilirubin 0.6 0.1-1.0 MG/DL Aspartate Amino Transf (AST/SGOT) 10 5-34 U/L Alanine Aminotransferase (ALT/SGPT) 17 0-55 U/L Alkaline Phosphatase 77 40-136 U/L C-Reactive Protein High Sensitivity 5.83 H 0.00-0.50 MG/DL Total Protein 7.0 6.4-8.2 GM/DL Albumin 4.0 3.2-4.5 GM/DL My Orders Orders - JOSH FRITZ MD Cbc With Automated Diff (07/30/20 06:38) Comprehensive Metabolic Panel (07/30/20 06:38) Hs C Reactive Protein (07/30/20 06:38) Lactic Acid Analyzer (07/30/20 06:38) Uric Acid (07/30/20 06:38) Ed Iv/Invasive Line Start (07/30/20 06:38) Ct Extremity Upper Right W (07/30/20 07:18) Iohexol Injection (Omnipaque 350 Mg/Ml 1 (07/30/20 07:30) Received Contrast (Hold Metformin- Contr (07/30/20 07:30) Sodium Chloride Flush (Catheter Flush Sy (07/30/20 07:30) Ns (Ivpb) (Sodium Chloride 0.9% Ivpb Bag (07/30/20 07:30) Blood Culture (07/30/20 08:13) Ceftriaxone For Iv Use (Rocephin For I (07/30/20 08:15) Vancomycin Injection (Vancomycin Injecti (07/30/20 08:15) Bartonella Group (07/30/20 08:13) Ketorolac Injection (Toradol Injection) (07/30/20 08:30) Vancomycin Injection (Vancomycin Injecti (07/30/20 09:00) General/Regular (07/30/20 Breakfast) Medications Given in ED Current Medications Medications Dose Ordered Sig/Isadora Route Start Time Stop Time Status Last Admin Dose Admin Ceftriaxone Sodium 1000 mg/ Sterile Water 10 ml @ 200 mls/hr ONCE ONCE IV 07/30/20 08:15 07/30/20 08:17 DC 07/30/20 08:35 200 MLS/HR Iohexol 100 ml ONCE ONCE IV 07/30/20 07:30 07/30/20 07:31 DC 07/30/20 07:49 100 ML Ketorolac Tromethamine 15 mg ONCE ONCE IVP 07/30/20 08:30 07/30/20 08:31 DC 07/30/20 08:25 15 MG Sodium Chloride 10 ml NEEDED PRN IV 07/30/20 07:30 07/30/20 10:45 DC 07/30/20 07:49 10 ML Sodium Chloride 100 ml ONCE ONCE IV 07/30/20 07:30 07/30/20 07:31 DC 07/30/20 07:49 80 ML Vital Signs/I&O 07/30/20 07/30/20 06:20 10:45 Temp 36.7 Pulse 78 87 Resp 18 16 B/P (MAP) 168/90 (116) 134/78 Pulse Ox 95 O2 Delivery Room Air Room Air Capillary Refill : Less Than 3 Seconds Blood Pressure Mean: 116 Progress Note #1: Time: 07:38 Progress Note Patient was seen and examined. Labs including uric acid were obtained. WBC and CRP are elevated but uric acid is low. We will proceed with evaluation presuming this is an infectious problem. CT of the hand and wrist is being obtained to rule out abscess that would require a hand surgeon. Progress Note #2: Time: 08:25 Progress Note No abscess was seen on the CT scan. Patient was offered admission for treatment of cellulitis since he is failing outpatient therapy. Alternatively, he was offered a one-time dose of IV antibiotics and discharged home with a more robust antibiotic regimen. He elects the latter option. Rocephin and vancomycin were ordered to administer in the ER. We will continue oral antibiotic therapy at home including doxycycline to cover for possible MRSA and azithromycin to cover for Bartonella. He may finish the Augmentin as well. Patient was advised to have a low threshold for returning to the emergency room. Diagnostic Imaging Diagonstic Imaging: CT Plain Films/CT/US/NM/MRI: forearm, hand Comments CT viewed by me and report reviewed. See report below: NAME: MEL BOWER MED REC#: [id number] PT STATUS: REG ER : 1955 PHYSICIAN: JOSH FRITZ MD ADMIT DATE: 07/30/20/ER Draft Date of Exam:07/30/20 CT EXTREMITY UPPER RIGHT W PROCEDURE: CT right upper extremity with contrast. TECHNIQUE: Axial images were obtained through the right upper extremity after intravenous contrast and reformatted into coronal and sagittal oblique planes. Auto Exposure Controls were utilized during the CT exam to meet ALARA standards for radiation dose reduction. INDICATION: Swelling of the hand and wrist. There are no prior studies available for comparison. By history the patient has had swelling of the fingers and the wrist since Tuesday, July 26. On this study there is no fracture, dislocation or acute bony abnormality evident. There is a small avulsion fracture along the tip of the ulnar styloid. I suspect this is long-standing in nature. There is no sign of bony destruction to suggest osteomyelitis. There is mild degenerative disease of the radiocarpal joint but at least moderate degenerative disease of the triscaphe joint. There is generalized soft tissue edema over the carpal bones and the wrist. There is no focal mass or abscess identified and the soft tissue edema may be secondary to cellulitis alone. Impression: 1. There is soft tissue edema about the hand and wrists but there is no fracture identified nor is there any sign of bone destruction to suggest osteomyelitis. There is no soft tissue abscess or mass visualized either. 2. If clinical concern regarding osteomyelitis persists, then MRI would be recommended for further evaluation. Dictated on workstation # [id number] Dict: 07/30/20 [id number] Trans: 07/30/[address] [place] [address] [id number] Interpreted by: NATE VILLASEÑOR MD Departure Impression Primary Impression: Cellulitis of right hand Additional Impression: Cat scratch of hand Qualified Codes: S60.511A - Abrasion of right hand, initial encounter; W55.03XA - Scratched by cat, initial encounter Disposition: HOME, SELF-CARE Condition: Improved Departure-Patient Inst. Decision time for Depature: 08:22 Referrals: [facility] [place]) Primary Care Physician RUSSELL KAUR MD (Family) Primary Care Physician Patient Instructions: Cat Scratch Disease, Cellulitis (Skin Infection), Adult (DC) Add. Discharge Instructions: You may complete the Augmentin (amoxicillin/clavulanic acid) as previously prescribed. Please also add the Z-Doug (azithromycin) and doxycycline as prescribed from the ER. You may take Tylenol (acetaminophen) up to 1000 mg every 6 hours as needed for pain. Over the next couple days you may use ibuprofen up to 400 mg every 6 hours as needed for pain. Ibuprofen should only be used for short-term treatment of pain in diabetic patients. Elevate your hand to the level of your heart as much as possible to reduce swelling. Return to the emergency room if you have worsening symptoms, especially if you develop fevers over 100 degrees. Follow-up with your primary care provider in 24 to 48 hours for repeat evaluation. Alternatively, you may return to the ER for a no charge wound check. Drink plenty of clear liquids to stay well-hydrated and monitor blood sugars cl osely while you have active infection. Call with questions or concerns. All discharge instructions reviewed with patient and/or family. Voiced understanding. Scripts Doxycycline Hyclate (Doxycycline Hyclate) 100 Mg Tablet 100 MG PO BID, #20 TAB 0 Refills Prov: JOSH FRITZ MD 07/30/20 Azithromycin (Azithromycin) 250 Mg Tablet 250 MG PO UD, #6 TAB TAKE 2 TABLETS ON DAY ONE THEN TAKE 1 TABLET DAILY FOR FOUR MORE DAYS Prov: JOSH FRITZ MD 07/30/20 Copy Copies To 1: RUSSELL KAUR MD, JOSHUA T MD Jul 30, 2020 07:08
[2020-07-30 07:09] LABS: URIC ACID 3.7 MG/DL (2.6-7.2)
[2020-07-30] MEDS ORDERED: IOHEXOL 350 MG/ML 100 ML (OMNIPAQUE 350) VIAL IV ONE (07:30)
[2020-07-30] MEDS ORDERED: HOLD METFORMIN - RECEIVED CONTRAST 20 ML VIAL IV SCH (07:30)
[2020-07-30] MEDS ORDERED: NS 100 ML (IVPB) BAG IV ONE (07:30)
[2020-07-30] MEDS ORDERED: CATHETER FLUSH 10 ML SYR IV PRN (07:30)
--- NOTE | 2020-07-30 08:02 | Diagnostic Imaging Report ---
PROCEDURE: CT right upper extremity with contrast. TECHNIQUE: Axial images were obtained through the right upper extremity after intravenous contrast and reformatted into coronal and sagittal oblique planes. Auto Exposure Controls were utilized during the CT exam to meet ALARA standards for radiation dose reduction. INDICATION: Swelling of the hand and wrist. There are no prior studies available for comparison. By history the patient has had swelling of the fingers and the wrist since July 26. On this study there is no fracture, dislocation or acute bony abnormality evident. There is a small avulsion fracture along the tip of the ulnar styloid. I suspect this is long-standing in nature. There is no sign of bony destruction to suggest osteomyelitis. There is mild degenerative disease of the radiocarpal joint but at least moderate degenerative disease of the triscaphe joint. There is generalized soft tissue edema over the carpal bones and the wrist. There is no focal mass or abscess identified and the soft tissue edema may be secondary to cellulitis alone. Impression: 1. There is soft tissue edema about the hand and wrists but there is no fracture identified nor is there any sign of bone destruction to suggest osteomyelitis. There is no soft tissue abscess or mass visualized either. 2. If clinical concern regarding osteomyelitis persists, then MRI would be recommended for further evaluation. Dictated by: Dictated on workstation # [id number]
[2020-07-30] MEDS ORDERED: VANCOMYCIN INJECTION 750 MG in NS (IVPB) 250 ML IV SCH (08:15)
[2020-07-30] MEDS ORDERED: cefTRIAXone FOR IV USE 1,000 MG in WATER (STERILE) FOR INJECTION 10 ML IV ONE (08:15)
[2020-07-30] MEDS ORDERED: DOXY100T2 PO (08:25)
[2020-07-30] MEDS ORDERED: AZIT250T12 PO (08:25)
[2020-07-30] MEDS ORDERED: KETOROLAC 30 MG/ML VIAL IVP ONE (08:30)
[2020-07-30] MEDS ORDERED: VANCOMYCIN 1500 MG/NS 500 ML IVPB IV NR ×2 (09:00)
[2020-07-30 10:45] VITALS: BP 134/78
== END 2020-07-30 10:45 | disposition home or self-care (01) ==
LOC: EDUNIT# 05:53 → ER 05:59
DX: S60.511A Abrasion of right hand, initial encounter (principal); L03.113 Cellulitis of right upper limb; I10 Essential (primary) hypertension; E10.9 Type 1 diabetes mellitus without complications; E78.00 Pure hypercholesterolemia, unspecified; G40.909 Epilepsy, unspecified, not intractable, without status epilepticus; Z88.5 Allergy status to narcotic agent; Z88.8 Allergy status to other drugs, medicaments and biological substances; Z87.891 Personal history of nicotine dependence; Z95.1 Presence of aortocoronary bypass graft; W55.03XA Scratched by cat, initial encounter
CPT/HCPCS: 36415; 73201; 80053; 83605; 84550; 85025; 86141; 86611; 87040

== ENCOUNTER → 2020-08-01 | Outpatient (CLI) | payer MEDICARE ==
[~2020-08-01] MED LIST changes: +AZIT250T12 PO; +DOXY100T2 PO
--- NOTE | 2020-08-01 15:33 | Diagnostic Imaging Report ---
EXAMINATION: CT Chest without contrast (lung screening). TECHNIQUE: Multiple contiguous axial images were obtained through the chest without the use of intravenous contrast according to lung cancer screening protocol. All CT scans use one or more of the following dose optimizing techniques: automated exposure control, MA and/or KvP adjustment based on a patient size and exam type, or iterative reconstruction. HISTORY: 49 pack year history of smoking. COMPARISON: None available. FINDINGS: There is no edema or pneumonia. No pleural effusion. No pneumothorax. No suspicious nodules. There is no axillary or supraclavicular lymphadenopathy. There is no mediastinal lymphadenopathy. Heart size is normal. There are severe coronary artery calcifications. No pericardial effusion. Aorta is normal in caliber. There has been coronary artery bypass grafting. Limited views of the upper abdomen are unremarkable. There are no suspicious osseus lesions. IMPRESSION: 1. No suspicious pulmonary nodules. LUNG-RADS CATEGORY: 1 MODIFIER: None. Dictated by: Dictated on workstation # [id number]
== END ==
LOC: RAD 15:45
PROVIDERS: ATTEND Nurse Practitioner Family
DX: Z00.00 Encounter for general adult medical examination without abnormal findings (principal); Z12.2 Encounter for screening for malignant neoplasm of respiratory organs; Z87.891 Personal history of nicotine dependence
CPT/HCPCS: 71271